=== PATIENT | female | born 1965 | race African-American/Black ===

== ENCOUNTER 2021-05-05 08:24 | Inpatient (IN) | payer OTHER, SELFPAY ==
[2021-05-05] VITALS (53 sets, daily range): BP systolic 145–223; BP diastolic 98–160; PULSE 56–92; RESP 11–31; TEMP 36.1–36.8; O2SAT 77–100; BMI 19.5
--- NOTE | 2021-05-05 08:38 | ED_ITS ---
HPI - Abdominal Pain General Chief Complaint: Abdominal Pain Stated Complaint: severe upper abdominal cramps, nausea Time Seen by Provider: 05/05/21 08:37 Source: patient and other (fiance) Mode of arrival: Wheelchair Limitations: no limitations History of Present Illness HPI narrative: This is a 56-year-old female comes in with complaint of epigastric pain, nausea and vomiting that started last night about 11:00 p.m. and has continued throughout the night. Patient denies fevers. Patient states she has had normal bowel movements with no diarrhea no black or bloody stools. She did notice she has been urinating a lot overnight but denies a sense of incomplete emptying, dysuria or urgency. Patient denies any radiation to her chest, she denies any radiation to back. She denies any chest pain she denies any shortness of breath. She denies any cough cold or congestion type symptoms. Patient states she has had similar symptoms in the past but they never figured out the exact cause although they told her it might be from eating carrots. She states she quit eating carrots but she does have care juice regularly. Patient denies any medical issues other than prior pleurodesis secondary to recurrent pn eumothorax. She states this feels very different. She states she has had an appendectomy. She denies any other surgeries. She denies any allergies to medications. She does not take any daily medications. No tobacco, alcohol or illicit. She is accompanied by her fiance. She does ask whether this could potentially be food poisoning. She is unsure if anyone else has had symptoms that she has been around. Review of Systems Review of Systems ROS Unobtainable: All systems reviewed & are unremarkable except as noted in HPI and below Patient History Medical History (Updated 05/05/21 @ 16:36 by Wojciech Norwood DO) Recurrent pneumothorax Small bowel obstruction Surgical History (Updated 05/05/21 @ 16:36 by Wojciech Norwood DO) History of appendectomy History of lung surgery Family History (Updated 05/05/21 @ 16:36 by Wojciech Norwood DO) Father Hypertension Mother Hypertension Social History household members: spouse Smoking Status: Never smoker alcohol intake: current (rare 0-1 drinks per week) substance use type: does not use Smoking Status: Never smoker Substance Use Type: does not use Exam Narrative Exam Narrative: GENERAL: Alert and oriented x three, female in moderate distress. HEENT: Head normocephalic, atraumatic, EOMI, pupils reactive, face symmetric, moist mucous membranes NECK: Supple, full range of motion CARDIOVASCULAR: Regular rate and rhythm without murmurs, rubs or gallops. RESPIRATORY: Breath sounds equal bilaterally, no wheezes rales or rhonchi. No tachypnea accessory muscle use. ABDOMEN: Soft, positive for left lower quadrant tenderness. Normoactive bowel sounds all 4 quadrants. No guarding or rebound, rigidity, no mass : No CVA tenderness EXTREMITIES: Normal range of motion, no clubbing or edema. Neurovascularly intact NEUROLOGICAL: Cranial nerves II through XII grossly intact. Moving all extremities SKIN: Warm, dry, no petechiae, no rashes or lesions. Initial Vital Signs Initial Vital Signs: Vital Signs Temperature 97.0 F L 05/05/21 08:33 Pulse Rate 92 H 05/05/21 08:33 Respiratory Rate 12 05/05/21 08:33 Blood Pressure 188/112 H 05/05/21 08:33 Pulse Oximetry 98 05/05/21 08:33 Course Orders Ordered: ED Orders 05/05/21 11:05 US pelvic complete Stat 05/05/21 11:27 COVID19 - ADMIT (REPAIRER ENGINE [employer]ODUCTION swab/PCR) Stat Hydrocodone Bitart/Acetaminophen (Hydrocodone/Acet 5/325 Tablet) 2 tab PO Q6HR PRN PRN Reason: Pain, Severe (7-10) Hydromorphone HCl (Hydromorphone 1 Mg Inj) 1 mg IV Q4H PRN PRN Reason: Pain, Severe (7-10), second li Last Admin: 05/05/21 17:40 Dose: 1 mg Documented by: ALEJANDRA POTASSIUM CHLORIDE IN WATER (Potassium Cl 10 Meq/100 Ml Lyn[place]ay) 10 meq in 100 mls @ 100 mls/hr IV Q1H [place] Stop: 05/05/21 20:59 Last Admin: 05/05/21 17:33 Dose: 100 mls/hr Documented by: ALEJANDRA Lactated Ringer's (Lactated Ringers) 1,000 mls @ 125 mls/hr IV CONT [place] Last Admin: 05/05/21 17:35 Dose: 125 mls/hr Documented by: ALEJANDRA Ketorolac Tromethamine (Ketorolac 30 Mg/Ml Vial) 15 mg IV Q6H [facility] Stop: 05/10/21 17:09 Last Admin: 05/05/21 17:42 Dose: 15 mg Documented by: ALEJANDRA Ondansetron HCl (Ondansetron 4 Mg/2 Ml Inj) 4 mg IV Q6HR PRN PRN Reason: Nausea And Vomiting Last Admin: 05/05/21 17:34 Dose: 4 mg Documented by: ALEJANDRA Pantoprazole Sodium (Pantoprazole 40 Mg Vial) 20 mg IV BID [place] Discontinued Medications Acetaminophen (Acetaminophen 325 Mg Tablet) 650 mg PO Q6HR PRN PRN Reason: Fever/Mild Pain (1-3) Hydrocodone Bitart/Acetaminophen (Hydrocodone/Acet 5/325 Tablet) 2 tab PO Q6HR PRN PRN Reason: Pain, Severe (7-10) Heparin Sodium (Porcine) (Heparin 5,000 Unit/Ml Vial) 5,000 unit SUBCUT BID [facility] Hydromorphone HCl (Hydromorphone 1 Mg Inj) 1 mg IV NOW ONE Stop: 05/05/21 14:05 Last Admin: 05/05/21 14:08 Dose: 1 mg Documented by: ESTELA Hydromorphone HCl (Hydromorphone 1 Mg Inj) 1 mg IV Q4HR PRN PRN Reason: pain Lactated Ringer's (Lactated Ringers) 1,000 mls @ 125 mls/hr IV CONT [facility] Ketorolac Tromethamine (Ketorolac 30 Mg/Ml Vial) 15 mg IV NOW ONE Stop: 05/05/21 08:48 Last Admin: 05/05/21 08:57 Dose: 15 mg Documented by: JERO Metoprolol Succinate (Metoprolol Er 25 Mg Tablet) 25 mg PO NOW ONE Stop: 05/05/21 12:31 Last Admin: 05/05/21 12:39 Dose: 25 mg Documented by: ESTELA Metoprolol Tartrate (Metoprolol Tartrate 5 Mg/5 Ml Inj) 5 mg IV Q5M [facility] Stop: 05/05/21 11:26 Last Admin: 05/05/21 12:38 Dose: Not Given Documented by: Admin: 05/05/21 11:38 Dose: 5 mg Documented by: Admin: 05/05/21 11:20 Dose: 5 mg Documented by: ESTELA Morphine Sulfate (Morphine 4 Mg/Ml Inj) 4 mg IV NOW ONE Stop: 05/05/21 09:59 Last Admin: 05/05/21 10:02 Dose: 4 mg Documented by: ESTELA Morphine Sulfate (Morphine 4 Mg/Ml Inj) 4 mg IV NOW ONE Stop: 05/05/21 11:14 Last Admin: 05/05/21 11:20 Dose: 4 mg Documented by: ESTELA Naloxone HCl (Naloxone 0.4 Mg/Ml Vial) 0.2 mg IV Q2MIN PRN PRN Reason: Opiate Reversal Ondansetron HCl (Ondansetron 4 Mg/2 Ml Inj) 4 mg IV NOW ONE Stop: 05/05/21 08:48 Last Admin: 05/05/21 08:56 Dose: 4 mg Documented by: JERO Ondansetron HCl (Ondansetron 4 Mg/2 Ml Inj) 4 mg IV Q6HR [place] Pantoprazole Sodium (Pantoprazole Dr 20 Mg Tablet) 20 mg PO 0600 [place] Sodium Biphosphate/Sodium Phosphate (Fleets Enema) 1 each RI NOW ONE Stop: 05/05/21 15:08 Sodium Biphosphate/Sodium Phosphate (Fleets Enema) 1 each RI NOW ONE Stop: 05/05/21 17:11 Last Admin: 05/05/21 18:05 Dose: 1 each Documented by: ALEJANDRA Reevaluation(s) Reevaluation #1: Patient updated on lab and CT findings. She is aware that have an additional labs pending as well as plan for pelvic ultrasound. Pain has improved after narcotic pain medication of 4/10 and a 2nd dose was given. She still quite hypertensive. She states that she has been told she has been hypertensive at the doctor's office but the number typically 130. Reevaluation #2: On recheck patient has been seen by Dr. Champion. Her pain is improved she still hypertensive. She is aware of the current plan for admission. Consultations Consultation #1: Dr. Mayen, patient appears have small-bowel obstruction whi ch is consistent with her current symptoms secondary to a large pelvic mass. She asked that we speak with OBGYN and recontact her with the recommendations of flu plan to keep the patient. Dr. Mayen was re-contacted after she spoke with Dr. Champion and saw patient here in the department accepts her for admission. We did discuss the patient has been hypertensive even after some IV metoprolol and multiple rounds of pain medication so she asked that we consult medicine. Consultation #2: Spoke with Dr. Champion is on for senior sales engineer. At this time she has for pelvic ultrasound to further delineate the mass. We have a CA 125 pending. After we have this information to recontact her for decision about whether to admit locally versus transfer to larger facility. Dr. Champion saw the patient here in the department after reviewing her door sound imaging. And CA 125 level. They do not feel that her bowel obstruction is likely the cause of her pelvic mass. And her CA 125 level is below 200 making cancer a much less likely cause and fibroids much more likely. She spoke with our general surgeon who is coming to evaluate the patient as well. Consultation #3: Dr. Norwood, will consult with the patient. Discussed she has been quite hypertensive. Pain control is likely a portion of this but even when her pain seems to be improved she is very hypertensive and respond somewhat to metoprolol and was started on a p.o. metoprolol with some improvement down from 2 / 20s to 172/104 but still quite hypertensive. Vital Signs Vital signs: Vital Signs - 8 hr 05/05/21 11:10 05/05/21 11:15 05/05/21 11:20 Pulse Rate 89 81 87 Respiratory Rate 19 19 22 Blood Pressure Pulse Oximetry 99 99 99 05/05/21 11:25 05/05/21 11:30 05/05/21 11:33 Pulse Rate 65 64 63 Respiratory Rate 24 31 H 23 Blood Pressure 223/160 H Pulse Oximetry 100 98 97 05/05/21 11:35 05/05/21 11:42 05/05/21 11:44 Pulse Rate 62 60 Respiratory Rate 25 H Blood Pressure 196/116 H 191/109 H Pulse Oximetry 77 L 100 05/05/21 11:45 05/05/21 11:50 05/05/21 11:51 Pulse Rate 56 L 63 62 Respiratory Rate 24 23 21 Blood Pressure 201/115 H 188/98 H Pulse Oximetry 100 99 99 05/05/21 11:55 05/05/21 12:00 05/05/21 12:05 Pulse Rate 63 74 59 L Respiratory Rate 19 19 Blood Pressure 188/116 H 190/108 H Pulse Oximetry 99 92 98 05/05/21 12:10 05/05/21 12:15 05/05/21 12:20 Pulse Rate 59 L 60 60 Respiratory Rate 19 18 17 Blood Pressure 181/109 H 180/112 H 188/111 H Pulse Oximetry 99 100 99 05/05/21 12:25 05/05/21 12:30 05/05/21 12:35 Pulse Rate 64 58 L 60 Respiratory Rate 18 20 19 Blood Pressure 178/112 H 172/106 H 189/116 H Pulse Oximetry 100 100 99 05/05/21 12:39 05/05/21 12:40 05/05/21 12:45 Pulse Rate 63 58 L 61 Respiratory Rate 24 20 Blood Pressure 189/116 H Pulse Oximetry 100 100 05/05/21 12:50 05/05/21 12:55 05/05/21 13:00 Pulse Rate 61 61 62 Respiratory Rate 26 H 22 22 Blood Pressure 198/107 H Pulse Oximetry 100 100 100 05/05/21 13:05 05/05/21 13:10 05/05/21 13:15 Pulse Rate 63 64 65 Respiratory Rate 18 19 20 Blood Pressure Pulse Oximetry 100 100 100 05/05/21 13:30 05/05/21 14:00 05/05/21 14:01 Pulse Rate 65 86 84 Respiratory Rate 21 30 H 28 H Blood Pressure 222/115 H 197/119 H Pulse Oximetry 99 83 L 98 05/05/21 14:30 05/05/21 14:31 05/05/21 15:00 Pulse Rate 81 72 74 Respiratory Rate 22 18 16 Blood Pressure 172/104 H 182/115 H Pulse Oximetry 94 95 99 MDM - Abdominal Pain Lab Data Result diagrams: 05/05/21 08:43 05/05/21 08:43 Labs: Lab Results 05/05/21 05/05/21 05/05/21 Range/Units 08:43 08:43 08:43 WBC 9.3 (4.5-11.0) X10^3/uL RBC 5.86 H (4.0-5.2) X10^6/uL Hgb 17.0 H (12.0-16.0) g/dL Hct 50.9 H (36-46) % MCV 87.0 (80-100) fL MCH 29.1 (26-34) PG MCHC 33.4 (30-36) % RDW 13.2 (11.6-14.8) % Plt Count 292 (150-400) X10^3/uL Neut % (Auto) 91.2 H (50-75) % Lymph % (Auto) 5.4 L (25-40) % [place] % (Auto) 3.0 (3-14) % Eos % (Auto) 0.0 L (2-4) % Baso % (Auto) 0.4 (0-2) % Neut # (Auto) 8500 H (4531-5208) /uL Lymph # (Auto) 500 L (5406-0425) /uL [place] # (Auto) 300 (0-900) /uL Eos # (Auto) 0 (0-450) /uL Baso # (Auto) 0 (0-100) /uL Sodium 140 (137-145) mmol/L Potassium 3.3 L (3.4-5.1) mmol/L Chloride 104 (98-107) mmol/L Carbon Dioxide 21 L (22-32) mmol/L BUN 17 (7-17) mg/dL Creatinine 0.78 (0.52-1.04) mg/dL Estimated GFR > 60.0 (>60) mL/min BUN/Creatinine Ratio 21.8 (6-22) Glucose 184 H (70-100) mg/dL Calcium 10.1 (8.4-10.2) mg/dL Total Bilirubin 0.6 (0.2-1.3) mg/dL AST 51 H (14-36) IU/L ALT 29 (<35) IU/L Alkaline Phosphatase 78 (38-126) U/L Total Creatine Kinase 415 H (30-135) U/L CK-MB (CK-2) 2.28 (<2.37) ng/mL CK-MB (CK-2) Rel Index 0.5 L (1.5-5.0) % Troponin I < 0.012 (0.01-0.034) ng/mL Total Protein 8.7 H (6.3-8.2) g/dL Albumin 4.9 (3.5-5.0) g/dL Globulin 3.8 (1.7-4.1) g/dL Albumin/Globulin Ratio 1.3 (1.0-2.8) Lipase 32 (23-300) U/L CA 125 Antigen (0-35) U/mL Urine RBC (0-5/HPF) Urine WBC (0-5/HPF) Ur Squamous Epith Cells (0-5/HPF) Urine Bacteria (None) Ur Culture Indicated? SARS-CoV-2 (PCR) (Negative) 05/05/21 05/05/21 05/05/21 Range/Units 08:43 10:05 11:27 WBC (4.5-11.0) X10^3/uL RBC (4.0-5.2) X10^6/uL Hgb (12.0-16.0) g/dL Hct (36-46) % MCV (80-100) fL MCH (26-34) PG MCHC (30-36) % RDW (11.6-14.8) % Plt Count (150-400) X10^3/uL Neut % (Auto) (50-75) % Lymph % (Auto) (25-40) % [place] % (Auto) (3-14) % Eos % (Auto) (2-4) % Baso % (Auto) (0-2) % Neut # (Auto) (3489-8495) /uL Lymph # (Auto) (5986-0389) /uL [facility] # (Auto) (0-900) /uL Eos # (Auto) (0-450) /uL Baso # (Auto) (0-100) /uL Sodium (137-145) mmol/L Potassium (3.4-5.1) mmol/L Chloride (98-107) mmol/L Carbon Dioxide (22-32) mmol/L BUN (7-17) mg/dL Creatinine (0.52-1.04) mg/dL Estimated GFR (>60) mL/min BUN/Creatinine Ratio (6-22) Glucose (70-100) mg/dL Calcium (8.4-10.2) mg/dL Total Bilirubin (0.2-1.3) mg/dL AST (14-36) IU/L ALT (<35) IU/L Alkaline Phosphatase (38-126) U/L Total Creatine Kinase (30-135) U/L CK-MB (CK-2) (<2.37) ng/mL CK-MB (CK-2) Rel Index (1.5-5.0) % Troponin I (0.01-0.034) ng/mL Total Protein (6.3-8.2) g/dL Albumin (3.5-5.0) g/dL Globulin (1.7-4.1) g/dL Albumin/Globulin Ratio (1.0-2.8) Lipase (23-300) U/L CA 125 Antigen 96.8 H (0-35) U/mL Urine RBC 10-30/hpf H (0-5/HPF) Urine WBC None seen (0-5/HPF) Ur Squamous Epith Cells None seen (0-5/HPF) Urine Bacteria None seen (None) Ur Culture Indicated? Cult not indicated SARS-CoV-2 (PCR) Negative (Negative) Point of care testing: Point of Care Testing Test Results Negative Urine Dip Bedside Urine Glucose 100 mg/dl Bedside Urine Bilirubin - Negative Bedside Urine Ketone - Negative Urine Specific [place] 1.015 Bedside Urine Occult Blood +++ Bedside Urine pH 6.5 Bedside Urine Protein + 30 Bedside Urine Urobilinogen - Negative Bedside Urine Nitrite - Negative Bedside Urine Leukocytes - Negative Esterase Imaging Data Chest x-ray: Radiologist's Impression: Deysi Rankin??56??F??1965 ? Allergy/Adv: No Known Drug Allergies Close Chest X-Ray (Signed) [facility] - 05/05/21 Launch?[place] [address] XRay Report Signed Patient: Deysi Rankin MR#: [id number] : 1965 Acct:[id number] Age/Sex: 56 / F Date of Service: 05/05/21 Loc: ED Accession Number: [id number] ?? Procedure: XR chest 1V Ordering Provider: Riddhi Saenz D.O. PROCEDURE:? XR CHEST 1V ? INDICATIONS:? abd pain, vomiting. ? TECHNIQUE:? One view of the chest was acquired.? ? COMPARISON:? None. ? FINDINGS:? ? Surgical changes and devices:? None.? ? Lungs and pleura:? Density at the right hemidiaphragm.? Suture material at the right upper lobe.? No pleural effusions or pneumothorax.? ? Mediastinum:? Mediastinal contours are within normal limits.? Heart size is normal.? ? Bones and chest wall:? No suspicious bony lesions.? Overlying soft tissues appear unremarkable.? ? IMPRESSION:? Density at the right hemidiaphragm. This could be due to elevation of the hemidiaphragm, diaphragmatic hernia, pneumonia or atelectasis. ? Suture material at the right upper lobe.? ? Dictated by: Mukund Fowler M.D. on 05/05/2021 at 8:11 ? ? Approved by: Mukund Fowler M.D. on 05/05/2021 at 8:12?? US - [employer] CERT[employer]IED [employer] PROFESSIONAL: Radiologist's Impression: Launch?Image [address] [address] Ultrasound Report Signed Patient: Deysi Rankin MR#: [id number] : 1965 Acct:[id number] Age/Sex: 56 / F Date of Service: 05/05/21 Loc: ED Accession Number: [id number] ?? Procedure: US pelvic complete Ordering Provider: Riddhi Saenz D.O. PROCEDURE:? US PELVIC COMPLETE ? INDICATIONS:? PELVIC MASS ? TECHNIQUE:? Real-time scanning was performed of the pelvic organs, with image documentation.? Additional endovaginal scanning was necessary due to incomplete visualization of the adnexal and endometrial structures by transabdominal scanning.? ? COMPARISON:? [facility], CT, CT ABDOMEN PELVIS W CON, 05/05/2021, 10:11. ? FINDINGS:? ?? Uterus:? Uterus is prominent in size at 11.7 x 7.9 x 10.3 cm.? The endometrial stripe is not seen. ? Hypoechoic uterine lesions are seen, which are attributed to fibroids. They measure as follows: ? Right anterior uterus, intramural/submucosal, 5.5 x 5.8 x 4.5 cm Left uterus, intramural/submucosal, 7.2 x 6.4 x 5.5 cm ? Ovaries:? Neither ovary can be seen. ? Other: ? There is moderate free fluid seen within the pelvis. ? IMPRESSION:? A prominent, fibroid uterus can be seen. ? The endometrial stripe is not seen and not evaluated on this study. ? Moderate free fluid can be seen. ? Neither ovary is seen on this study. ? ? Dictated by: Alonzo Rosales M.D. on 05/05/2021 at 11:01 ? ? Approved by: Alonzo Rosales M.D. on 05/05/2021 at 11:06?? CT scan - abdomen/pelvis: Radiologist's Impression: Deysi Rankin??56??F??1965 ? Allergy/Adv: Not Recorded Close Pelvis Ultrasound (Signed) Alonzo Rosales - 05/05/21 Abdomen/Pelvis CT (Signed) Myles Brower - 05/05/21 Chest X-Ray (Signed) Jonathan Fowlern - 05/05/21 Launch?[place] [address] CT Scan Report Signed Patient: Deysi Rankin MR#: [id number] : 1965 Acct:[id number] Age/Sex: 56 / F Date of Service: 05/05/21 Loc: ED Accession Number: [id number] ?? Procedure: CT abdomen pelvis w con Ordering Provider: Riddhi Saenz D.O. PROCEDURE:? CT ABDOMEN PELVIS W CON ? INDICATIONS:? abdominal pain, epigastric, now LLQ, hx pleuradesis ? TECHNIQUE:? After the administration of intravenous contrast, axial sections acquired from the lung bases to the pubic symphysis.? Coronal and sagittal reformats were performed.? For radiation dose reduction, the following was used:? automated exposure control, adjustment of mA and/or kV according to patient size.? ? COMPARISON:? None. ? FINDINGS: ABDOMEN:? Lung bases:? No acute findings. Heart:? No pericardial effusion. Normal in size.? ? Liver:? Hepatic steatosis. Subcentimeter hepatic foci are statistically cysts or hemangiomas, although technically too small to characterize accurately and therefore nonspecific. Gallbladder:? Grossly unremarkable. Bile ducts: Normal. Pancreas: Normal.? Spleen: Normal.? Adrenals: Normal. Kidneys and Ureters:? Normal. Stomach and duodenum: Normal. Bowel:? There is dilation of multiple diffuse distal small bowel loops, some of which demonstrate fecalization.? The colon is relatively decompressed and contains moderate stool.? A specific transition point is not well seen, suboptimal evaluation secondary to paucity of intra-abdominal fat and scattered ascites. Other:? No definite intraperitoneal free air is seen.? There is diffuse moderate ascites Abdominal nodes:? No definite lymphadenopathy however limited evaluation given ascites Aorta and IVC: Normal in size.? ? Ventral wall: Normal. ? PELVIS:? ? Bladder:? Grossly unremarkable.? Large heterogeneous multinodular mass seen within the central pelvis measuring overall 7.3 x 11.3 cm in axial image 71/2.? Numerous poorly defined uterine fibroids although recommend clinical and surgical history correlation. ? Both ovaries not well seen. Inguinal region: No hernia.? Pelvic nodes: Normal.? ? Bones:? No suspicious bony lesions.? No vertebral body compression fractures. ? ? IMPRESSION: ? Dilated small bowel, probably mostly ileal loops in keeping with bowel obstruction.? Superimposed infectious or inflammatory enteritis cannot be excluded. ? Diffuse moderate ascites. ? Large heterogeneous mass within the central pelvis, technically nonspecific.? This could reflect numerous poorly defined uterine fibroids although cannot exclude other possibilities.? The ovaries are not well visualized and ovarian neoplasm is technically in the differential.? Please correlate with clinical and operative history. ? Dictated by: Myles Brower M.D. on 05/05/2021 at 10:31 ? ? Approved by: Myles Brower M.D. on 05/05/2021 at 10:40?? ECG Data Attestation: I personally reviewed and interpreted this ECG as follows: Prior ECG tracings: not available for review Interpretation: Normal sinus rhythm. Rate of 61 RI 184 QRS 82 and QTC 459. Patient has nonspecific change. She does not have any priors for comparison. MDM Narrative Medical decision making narrative: This is a 56-year-old female who comes in with fairly short onset of abdominal pain and vomiting. Patient has had episodes in the past but was told they never found a cause. Patient's quite hypertensive here in the department. Chest x-ray was negative she does have a history of pleurodesis after multiple pneumothorax. Patient's was given pain medication which not seem to improve her hypertension was given IV metoprolol as well. CT abdomen pelvis was obtained which shows a large mass as well as signs of small-bowel obstruction but with no clear transition point. General surgery and OBGYN or both consulted. CA 125 was occluded and pelvic ultrasound was obtained at GYNs request. This was all reviewed with Dr. Champion from waterproof coating machine tender who feels that these are more likely fibroids not cancerous in nature. She states that it also appears that this is less likely a cause of her small-bowel obstruction or ileus and General surgery has taken over. They are going to admit the patient at this time. They do aspirin medicine consult she has been quite hypertensive in the department with some improvement. Discharge Plan Departure Patient Disposition: Admitted As Inpatient Clinical Impression: Pelvic mass, Partial small bowel obstruction, Hypertension Admit Date/Time: 05/05/21 15:01 Admit Provider: Angy Mayen
--- NOTE | 2021-05-05 08:47 | DI.RAD.S_ITS ---
PROCEDURE: XR CHEST 1V INDICATIONS: abd pain, vomiting. TECHNIQUE: One view of the chest was acquired. COMPARISON: None. FINDINGS: Surgical changes and devices: None. Lungs and pleura: Density at the right hemidiaphragm. Suture material at the right upper lobe. No pleural effusions or pneumothorax. Mediastinum: Mediastinal contours are within normal limits. Heart size is normal. Bones and chest wall: No suspicious bony lesions. Overlying soft tissues appear unremarkable. IMPRESSION: Density at the right hemidiaphragm. This could be due to elevation of the hemidiaphragm, diaphragmatic hernia, pneumonia or atelectasis. Suture material at the right upper lobe. Dictated by: Mukund Fowler M.D. on 05/05/2021 at 8:11 Approved by: Mukund Fowler M.D. on 05/05/2021 at 8:12
[2021-05-05 08:51] LABS: Add Manual Diff / Slide Review NO; Basophils Absolute Auto 0 /uL (0-100); Basophils Percent Auto 0.4 % (0-2); Eosinophils Absolute Auto 0 /uL (0-450); Hematocrit 50.9 % (36-46); Lymphocytes Absolute Auto 500 /uL (1100-4500); Lymphocytes Percent Auto 5.4 % (25-40); Mean Corpuscular HGB Conc 33.4 % (30-36); Mean Corpuscular Hemoglobin 29.1 PG (26-34); Monocytes Absolute Auto 300 /uL (0-900); Neutrophils Absolute Auto 8500 /uL (1500-7000); Neutrophils Percent Auto 91.2 % (50-75); Platelet Count 292 X10^3/uL (150-400); Red Blood Cell Count 5.86 X10^6/uL (4.0-5.2); Red Cell Distribution Width 13.2 % (11.6-14.8); White Blood Cell Count 9.3 X10^3/uL (4.5-11.0)
[2021-05-05] MEDS: ONDANSETRON 4 MG/2 ML INJ IV ×2 (08:56→17:34)
[2021-05-05] MEDS: KETOROLAC 30 MG/ML VIAL 15 MG IV ×3 (08:57→22:54)
[2021-05-05 09:13] LABS: Creatine Kinase 415 U/L (30-135)
[2021-05-05 09:26] LABS: Troponin I < 0.012 ng/mL (0.01-0.034)
[2021-05-05 09:29] LABS: CKMB % Relative Index 0.5 % (1.5-5.0); Creatine Kinase MB 2.28 ng/mL (<2.37)
--- NOTE | 2021-05-05 09:35 | DI.CT.S_ITS ---
PROCEDURE: CT ABDOMEN PELVIS W CON INDICATIONS: abdominal pain, epigastric, now LLQ, hx pleuradesis TECHNIQUE: After the administration of intravenous contrast, axial sections acquired from the lung bases to the pubic symphysis. Coronal and sagittal reformats were performed. For radiation dose reduction, the following was used: automated exposure control, adjustment of mA and/or kV according to patient size. COMPARISON: None. FINDINGS: ABDOMEN: Lung bases: No acute findings. Heart: No pericardial effusion. Normal in size. Liver: Hepatic steatosis. Subcentimeter hepatic foci are statistically cysts or hemangiomas, although technically too small to characterize accurately and therefore nonspecific. Gallbladder: Grossly unremarkable. Bile ducts: Normal. Pancreas: Normal. Spleen: Normal. Adrenals: Normal. Kidneys and Ureters: Normal. Stomach and duodenum: Normal. Bowel: There is dilation of multiple diffuse distal small bowel loops, some of which demonstrate fecalization. The colon is relatively decompressed and contains moderate stool. A specific transition point is not well seen, suboptimal evaluation secondary to paucity of intra-abdominal fat and scattered ascites. Other: No definite intraperitoneal free air is seen. There is diffuse moderate ascites Abdominal nodes: No definite lymphadenopathy however limited evaluation given ascites Aorta and IVC: Normal in size. Ventral wall: Normal. PELVIS: Bladder: Grossly unremarkable. Large heterogeneous multinodular mass seen within the central pelvis measuring overall 7.3 x 11.3 cm in axial image 71/2. Numerous poorly defined uterine fibroids although recommend clinical and surgical history correlation. Both ovaries not well seen. Inguinal region: No hernia. Pelvic nodes: Normal. Bones: No suspicious bony lesions. No vertebral body compression fractures. IMPRESSION: Dilated small bowel, probably mostly ileal loops in keeping with bowel obstruction. Superimposed infectious or inflammatory enteritis cannot be excluded. Diffuse moderate ascites. Large heterogeneous mass within the central pelvis, technically nonspecific. This could reflect numerous poorly defined uterine fibroids although cannot exclude other possibilities. The ovaries are not well visualized and ovarian neoplasm is technically in the differential. Please correlate with clinical and operative history. Dictated by: Myles Brower M.D. on 05/05/2021 at 10:31 Approved by: Myles Brower M.D. on 05/05/2021 at 10:40
[2021-05-05] MEDS: MORPHINE 4 MG/ML INJ IV ×2 (10:02→11:20)
[2021-05-05 10:07] LABS: Alanine Aminotransferase 29 IU/L (<35); Albumin 4.9 g/dL (3.5-5.0); Albumin Globulin Ratio 1.3 (1.0-2.8); Alkaline Phosphatase 78 U/L (38-126); Aspartate Aminotransferase 51 IU/L (14-36); BUN Creatinine Ratio 21.8 (6-22); Bilirubin Total 0.6 mg/dL (0.2-1.3); Blood Urea Nitrogen 17 mg/dL (7-17); Calcium 10.1 mg/dL (8.4-10.2); Carbon Dioxide 21 mmol/L (22-32); Chloride 104 mmol/L (98-107); Estimated Glomerular Filt Rate > 60.0 mL/min (>60); Globulin 3.8 g/dL (1.7-4.1); Glucose 184 mg/dL (70-100); HEMOLYSIS 34 (0-50); Lipase 32 U/L (23-300); Potassium 3.3 mmol/L (3.4-5.1); Sodium 140 mmol/L (137-145); Total Protein 8.7 g/dL (6.3-8.2)
[2021-05-05 10:13] LABS: Bacteria Urine None Seen; Culture Indicated Urine Cult Not Indicated; RBC Urine 10-30/HPF (0-5/HPF); Squamous Epithelial Cell Urine None Seen (0-5/HPF); WBC Urine None Seen (0-5/HPF)
--- NOTE | 2021-05-05 11:05 | DI.US.S_ITS ---
PROCEDURE: US PELVIC COMPLETE INDICATIONS: PELVIC MASS TECHNIQUE: Real-time scanning was performed of the pelvic organs, with image documentation. Additional endovaginal scanning was necessary due to incomplete visualization of the adnexal and endometrial structures by transabdominal scanning. COMPARISON: [facility], CT, CT ABDOMEN PELVIS W CON, 05/05/2021, 10:11. FINDINGS: Uterus: Uterus is prominent in size at 11.7 x 7.9 x 10.3 cm. The endometrial stripe is not seen. Hypoechoic uterine lesions are seen, which are attributed to fibroids. They measure as follows: Right anterior uterus, intramural/submucosal, 5.5 x 5.8 x 4.5 cm Left uterus, intramural/submucosal, 7.2 x 6.4 x 5.5 cm Ovaries: Neither ovary can be seen. Other: There is moderate free fluid seen within the pelvis. IMPRESSION: A prominent, fibroid uterus can be seen. The endometrial stripe is not seen and not evaluated on this study. Moderate free fluid can be seen. Neither ovary is seen on this study. Dictated by: Alonzo Rosales M.D. on 05/05/2021 at 11:01 Approved by: Alonzo Rosales M.D. on 05/05/2021 at 11:06
[2021-05-05] MEDS: METOPROLOL TARTRATE 5 MG/5 ML INJ IV ×2 (11:20→11:38)
[2021-05-05 11:42] LABS: Cancer Antigen 125 96.8 U/mL (0-35)
[2021-05-05 12:17] LABS: COVID19 - ADMIT (NP swab/PCR) Negative (Negative)
[2021-05-05] MEDS: METOPROLOL ER 25 MG TABLET PO (12:39)
[2021-05-05] MEDS: HYDROMORPHONE 1 MG INJ IV ×2 (14:08→17:40)
--- NOTE | 2021-05-05 15:09 | PM.HP.1 ---
History of Present Illness History of Present Illness Date Patient Seen: 05/05/21 Time Patient Seen: 15:09 Date of Onset of Symptoms: 05/04/21 Chief complaint: severe upper abdominal cramps, nausea Narrative: Sudden onset nausea, vomiting and abdominal pain. 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 Last BM was last night. Pain is generalized and crampy. No report of fever or cough. CT scan show large fibroid uterus, moderate amount of free fluid, distal dilated small bowel of moderate size and constipation. Patient History Comment: PMH for hypertension PSH for multiple surgeries for uterine fibroids. Family & Social History Family history unavailable: No (patient states fibroid tumors run in the family) Social History: here with fiancee and is getting in 3 weeks Safety & Behavioral: Feels Safe in Current Yes Environment Been Physically Hurt or No Threatened By a Person Tobacco & Substance use: Smoking Status Never smoker Substance Use Type does not use Review of Systems Review of Systems ROS: Yes All systems reviewed with the patient and are negative except as otherwise documented Exam Vital Signs (past 8 hours): - 05/05/21 08:33 05/05/21 09:29 05/05/21 09:30 Temperature 97.0 F L Pulse Rate 92 H 74 69 Respiratory Rate 12 23 11 L Blood Pressure 188/112 H Pulse Oximetry 98 100 100 05/05/21 09:54 05/05/21 10:00 05/05/21 10:01 Temperature Pulse Rate 68 72 73 Respiratory Rate 17 27 H 22 Blood Pressure 202/104 H 210/111 H Pulse Oximetry 80 L 99 98 05/05/21 10:24 05/05/21 10:30 05/05/21 11:00 Temperature Pulse Rate 71 82 81 Respiratory Rate 19 22 22 Blood Pressure 216/110 H 204/120 H 215/123 H Pulse Oximetry 79 L 98 98 05/05/21 11:05 05/05/21 11:10 05/05/21 11:15 Temperature Pulse Rate 74 89 81 Respiratory Rate 23 19 19 Blood Pressure Pulse Oximetry 98 99 99 05/05/21 11:20 05/05/21 11:25 05/05/21 11:30 Temperature Pulse Rate 87 65 64 Respiratory Rate 22 24 31 H Blood Pressure 223/160 H Pulse Oximetry 99 100 98 05/05/21 11:33 05/05/21 11:35 05/05/21 11:42 Temperature Pulse Rate 63 62 Respiratory Rate 23 Blood Pressure 196/116 H Pulse Oximetry 97 77 L 05/05/21 11:44 05/05/21 11:45 05/05/21 11:50 Temperature Pulse Rate 60 56 L 63 Respiratory Rate 25 H 24 23 Blood Pressure 191/109 H 201/115 H Pulse Oximetry 100 100 99 05/05/21 11:51 05/05/21 11:55 05/05/21 12:00 Temperature Pulse Rate 62 63 74 Respiratory Rate 21 19 Blood Pressure 188/98 H 188/116 H Pulse Oximetry 99 99 92 05/05/21 12:05 05/05/21 12:10 05/05/21 12:15 Temperature Pulse Rate 59 L 59 L 60 Respiratory Rate 19 19 18 Blood Pressure 190/108 H 181/109 H 180/112 H Pulse Oximetry 98 99 100 05/05/21 12:20 05/05/21 12:25 05/05/21 12:30 Temperature Pulse Rate 60 64 58 L Respiratory Rate 17 18 20 Blood Pressure 188/111 H 178/112 H 172/106 H Pulse Oximetry 99 100 100 05/05/21 12:35 05/05/21 12:39 05/05/21 12:40 Temperature Pulse Rate 60 63 58 L Respiratory Rate 19 24 Blood Pressure 189/116 H 189/116 H Pulse Oximetry 99 100 05/05/21 12:45 05/05/21 12:50 05/05/21 12:55 Temperature Pulse Rate 61 61 61 Respiratory Rate 20 26 H 22 Blood Pressure Pulse Oximetry 100 100 100 05/05/21 13:00 05/05/21 13:05 05/05/21 13:10 Temperature Pulse Rate 62 63 64 Respiratory Rate 22 18 19 Blood Pressure 198/107 H Pulse Oximetry 100 100 100 05/05/21 13:15 05/05/21 13:30 05/05/21 14:00 Temperature Pulse Rate 65 65 86 Respiratory Rate 20 21 30 H Blood Pressure 222/115 H Pulse Oximetry 100 99 83 L 05/05/21 14:01 05/05/21 14:30 05/05/21 14:31 Temperature Pulse Rate 84 81 72 Respiratory Rate 28 H 22 18 Blood Pressure 197/119 H 172/104 H Pulse Oximetry 98 94 95 Oxygen Delivery Method Room Air Const General: cooperative and comfortable Nutritional Appearance: underweight Orientation: alert and oriented x3 HENMT Head: normal to inspection Ears: hearing grossly normal bilaterally Nose: external nose normal Face and sinus: normal facial exam Eyes General: appearance normal, both eyes and all related structures Visual Monteiro: normal visual monteiro by confrontation Sclera: sclerae normal Neck Neck: trachea midline Chest Chest: normal inspection of the chest Resp Effort & Inspection: normal respiratory effort and able to speak in complete sentences Cardio Rate: regular rate Rhythm: regular rhythm Other: hypertensive GI Inspection: normal to inspection Palpation: soft, mass (pelvic mass easily palpated. NO acute abdomen) and tender Skin General: no rashes or lesions noted and turgor normal Neuro General: patient alert and patient oriented x3 Cognition: normal cognition Speech: speech normal Extrem General: normal to inspection and full ROM Psych Appearance: grossly normal Affect: indifferent Attitude: cooperative Judgment: fair Objective Labs Result Diagrams: 05/05/21 08:43 05/05/21 08:43 Labs: Laboratory Results - last 24 hr 05/05/21 05/05/21 05/05/21 08:43 08:43 08:43 WBC 9.3 RBC 5.86 H Hgb 17.0 H Hct 50.9 H MCV 87.0 MCH 29.1 MCHC 33.4 RDW 13.2 Plt Count 292 Neut % (Auto) 91.2 H Lymph % (Auto) 5.4 L [place] % (Auto) 3.0 Eos % (Auto) 0.0 L Baso % (Auto) 0.4 Neut # (Auto) 8500 H Lymph # (Auto) 500 L [place] # (Auto) 300 Eos # (Auto) 0 Baso # (Auto) 0 Sodium 140 Potassium 3.3 L Chloride 104 Carbon Dioxide 21 L BUN 17 Creatinine 0.78 Estimated GFR > 60.0 BUN/Creatinine Ratio 21.8 Glucose 184 H Calcium 10.1 Total Bilirubin 0.6 AST 51 H ALT 29 Alkaline Phosphatase 78 Total Creatine Kinase 415 H CK-MB (CK-2) 2.28 CK-MB (CK-2) Rel Index 0.5 L Troponin I < 0.012 Total Protein 8.7 H Albumin 4.9 Globulin 3.8 Albumin/Globulin Ratio 1.3 Lipase 32 CA 125 Antigen Urine RBC Urine WBC Ur Squamous Epith Cells Urine Bacteria Ur Culture Indicated? SARS-CoV-2 (PCR) 05/05/21 05/05/21 05/05/21 08:43 10:05 11:27 WBC RBC Hgb Hct MCV MCH MCHC RDW Plt Count Neut % (Auto) Lymph % (Auto) [place] % (Auto) Eos % (Auto) Baso % (Auto) Neut # (Auto) Lymph # (Auto) [place] # (Auto) Eos # (Auto) Baso # (Auto) Sodium Potassium Chloride Carbon Dioxide BUN Creatinine Estimated GFR BUN/Creatinine Ratio Glucose Calcium Total Bilirubin AST ALT Alkaline Phosphatase Total Creatine Kinase CK-MB (CK-2) CK-MB (CK-2) Rel Index Troponin I Total Protein Albumin Globulin Albumin/Globulin Ratio Lipase CA 125 Antigen 96.8 H Urine RBC 10-30/hpf H Urine WBC None seen Ur Squamous Epith Cells None seen Urine Bacteria None seen Ur Culture Indicated? Cult not indicated SARS-CoV-2 (PCR) Negative Assessment & Plan Assessment & Plan narrative: Likely a combination of events: viral gastroenteritis in setting of chronic constipation. adhesive disease. Large uterine fibroid impinge on the distal bowel both small and large. hypertension Plan: admit for IV hydration, observation, enema. 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 Medical consult for hypertension. COVID-19 COVID-19 status: Negative Time Spent With Patient Time with patient: 30 to 49 minutes with 50% spent counseling/coordinating care Critical Care time: I spent a total of 40 minutes of critical care time on this patient's care today; this time is exclusive of procedural time.
--- NOTE | 2021-05-05 16:34 | PM.CN ---
History of Present Illness Consult details Date Patient Seen: 05/05/21 Time Patient Seen: 16:34 Chief complaint: severe upper abdominal cramps, nausea Narrative: This is a 56-year-old female with a past history of recurrent pneumothorax, uterine fibroids with prior anemia secondary to blood loss, prior small-bowel obstruction who presented with severe epigastric cramping, nausea, and vomiting and inability to tolerate oral intake. Her emesis was nonbloody and nonbilious. Pain was crampy like, severe, and epigastric. The pain was intermittent, but also with a more diffuse dull pain now. CT scan done in the ER showed partial SBO, heterogeneous mass patient's blood pressures were markedly elevated. She was given 25 mg of oral metoprolol. Medicine was asked to consult for HTN. The patient denies any recent chest pain, shortness of breath, orthopnea, or lower extremity edema. Review of Systems Review of Systems Narrative: All other systems reviewed with the patient and are negative unless otherwise stated. Exam Vital Signs (past 8 hours): - 05/05/21 09:29 05/05/21 09:30 05/05/21 09:54 Pulse Rate 74 69 68 Respiratory Rate 23 11 L 17 Blood Pressure 202/104 H Pulse Oximetry 100 100 80 L 05/05/21 10:00 05/05/21 10:01 05/05/21 10:24 Pulse Rate 72 73 71 Respiratory Rate 27 H 22 19 Blood Pressure 210/111 H 216/110 H Pulse Oximetry 99 98 79 L 05/05/21 10:30 05/05/21 11:00 05/05/21 11:05 Pulse Rate 82 81 74 Respiratory Rate 22 22 23 Blood Pressure 204/120 H 215/123 H Pulse Oximetry 98 98 98 05/05/21 11:10 05/05/21 11:15 05/05/21 11:20 Pulse Rate 89 81 87 Respiratory Rate 19 19 22 Blood Pressure Pulse Oximetry 99 99 99 05/05/21 11:25 05/05/21 11:30 05/05/21 11:33 Pulse Rate 65 64 63 Respiratory Rate 24 31 H 23 Blood Pressure 223/160 H Pulse Oximetry 100 98 97 05/05/21 11:35 05/05/21 11:42 05/05/21 11:44 Pulse Rate 62 60 Respiratory Rate 25 H Blood Pressure 196/116 H 191/109 H Pulse Oximetry 77 L 100 05/05/21 11:45 05/05/21 11:50 05/05/21 11:51 Pulse Rate 56 L 63 62 Respiratory Rate 24 23 21 Blood Pressure 201/115 H 188/98 H Pulse Oximetry 100 99 99 05/05/21 11:55 05/05/21 12:00 05/05/21 12:05 Pulse Rate 63 74 59 L Respiratory Rate 19 19 Blood Pressure 188/116 H 190/108 H Pulse Oximetry 99 92 98 05/05/21 12:10 05/05/21 12:15 05/05/21 12:20 Pulse Rate 59 L 60 60 Respiratory Rate 19 18 17 Blood Pressure 181/109 H 180/112 H 188/111 H Pulse Oximetry 99 100 99 05/05/21 12:25 05/05/21 12:30 05/05/21 12:35 Pulse Rate 64 58 L 60 Respiratory Rate 18 20 19 Blood Pressure 178/112 H 172/106 H 189/116 H Pulse Oximetry 100 100 99 05/05/21 12:39 05/05/21 12:40 05/05/21 12:45 Pulse Rate 63 58 L 61 Respiratory Rate 24 20 Blood Pressure 189/116 H Pulse Oximetry 100 100 05/05/21 12:50 05/05/21 12:55 05/05/21 13:00 Pulse Rate 61 61 62 Respiratory Rate 26 H 22 22 Blood Pressure 198/107 H Pulse Oximetry 100 100 100 05/05/21 13:05 05/05/21 13:10 05/05/21 13:15 Pulse Rate 63 64 65 Respiratory Rate 18 19 20 Blood Pressure Pulse Oximetry 100 100 100 05/05/21 13:30 05/05/21 14:00 05/05/21 14:01 Pulse Rate 65 86 84 Respiratory Rate 21 30 H 28 H Blood Pressure 222/115 H 197/119 H Pulse Oximetry 99 83 L 98 05/05/21 14:30 05/05/21 14:31 05/05/21 15:00 Pulse Rate 81 72 74 Respiratory Rate 22 18 16 Blood Pressure 172/104 H 182/115 H Pulse Oximetry 94 95 99 05/05/21 15:30 05/05/21 16:00 Pulse Rate 71 77 Respiratory Rate 15 18 Blood Pressure 185/102 H 165/112 H Pulse Oximetry 98 98 Oxygen Delivery Method Room Air Narrative Exam Narrative: GENERAL APPEARANCE: Well developed, well nourished, in no acute distress. SKIN: Inspection of the skin reveals no rashes, ulcerations or petechiae. HEENT: Normocephalic atraumatic, extraocular muscles are intact, oropharynx is clear and mucous membranes are moist, neck is supple without adenopathy NECK: Supple and symmetric. There was no thyroid enlargement, and no tenderness, or masses were felt. CHEST: Normal AP diameter and normal contour without any kyphoscoliosis. LUNGS: Auscultation of the lungs revealed no wheezes, rhonchi, or rales. CARDIOVASCULAR: There was a regular rate and rhythm without any murmurs, gallops, rubs. Peripheral pulses were 2+ and symmetric. ABDOMEN: Soft, minimal distension with mild periumbilical tenderness. MUSCULOSKELETAL: There was no tenderness or effusions noted. Muscle strength and tone were normal. EXTREMITIES: No cyanosis, clubbing or edema. NEUROLOGIC: Alert and oriented x 3. Normal affect. Strength is +5/5 in the Upper Extremities and Lower Extremities Bilaterally. Objective Imaging CT scan - abdomen: Radiologist's impression: IMPRESSION: ? Dilated small bowel, probably mostly ileal loops in keeping with bowel obstruction.? Superimposed infectious or inflammatory enteritis cannot be excluded. ? Diffuse moderate ascites. ? Large heterogeneous mass within the central pelvis, technically nonspecific.? This could reflect numerous poorly defined uterine fibroids although cannot exclude other possibilities.? The ovaries are not well visualized and ovarian neoplasm is technically in the differential.? Please correlate with clinical and operative history. Labs Result Diagrams: 05/05/21 08:43 05/05/21 08:43 Labs: Laboratory Results - last 24 hr 05/05/21 05/05/21 05/05/21 08:43 08:43 08:43 WBC 9.3 RBC 5.86 H Hgb 17.0 H Hct 50.9 H MCV 87.0 MCH 29.1 MCHC 33.4 RDW 13.2 Plt Count 292 Neut % (Auto) 91.2 H Lymph % (Auto) 5.4 L [place] % (Auto) 3.0 Eos % (Auto) 0.0 L Baso % (Auto) 0.4 Neut # (Auto) 8500 H Lymph # (Auto) 500 L [place] # (Auto) 300 Eos # (Auto) 0 Baso # (Auto) 0 Sodium 140 Potassium 3.3 L Chloride 104 Carbon Dioxide 21 L BUN 17 Creatinine 0.78 Estimated GFR > 60.0 BUN/Creatinine Ratio 21.8 Glucose 184 H Calcium 10.1 Total Bilirubin 0.6 AST 51 H ALT 29 Alkaline Phosphatase 78 Total Creatine Kinase 415 H CK-MB (CK-2) 2.28 CK-MB (CK-2) Rel Index 0.5 L Troponin I < 0.012 Total Protein 8.7 H Albumin 4.9 Globulin 3.8 Albumin/Globulin Ratio 1.3 Lipase 32 CA 125 Antigen Urine RBC Urine WBC Ur Squamous Epith Cells Urine Bacteria Ur Culture Indicated? SARS-CoV-2 (PCR) 05/05/21 05/05/21 05/05/21 08:43 10:05 11:27 WBC RBC Hgb Hct MCV MCH MCHC RDW Plt Count Neut % (Auto) Lymph % (Auto) [place] % (Auto) Eos % (Auto) Baso % (Auto) Neut # (Auto) Lymph # (Auto) [place] # (Auto) Eos # (Auto) Baso # (Auto) Sodium Potassium Chloride Carbon Dioxide BUN Creatinine Estimated GFR BUN/Creatinine Ratio Glucose Calcium Total Bilirubin AST ALT Alkaline Phosphatase Total Creatine Kinase CK-MB (CK-2) CK-MB (CK-2) Rel Index Troponin I Total Protein Albumin Globulin Albumin/Globulin Ratio Lipase CA 125 Antigen 96.8 H Urine RBC 10-30/hpf H Urine WBC None seen Ur Squamous Epith Cells None seen Urine Bacteria None seen Ur Culture Indicated? Cult not indicated SARS-CoV-2 (PCR) Negative [facility] Medical History (Updated 05/05/21 @ 16:36 by Wojciech Norwood DO) Recurrent pneumothorax Small bowel obstruction Surgical History (Updated 05/05/21 @ 16:36 by Wojciech Norwood DO) History of appendectomy History of lung surgery Family History (Updated 05/05/21 @ 16:36 by Wojciech Norwood DO) Father Hypertension Mother Hypertension Tobacco & Substance Use Smoking Status: Never smoker alcohol intake: current (rare 0-1 drinks per week) substance use type: does not use Assessment & Plan Assessment & Plan narrative: 56-year-old female admitted with small-bowel obstruction, likely secondary to adhesive disease, who was noted to have very elevated blood pressures in the emergency room. Medicine was asked for consultation. 1. Hypertension, acute -suspect set at least some component secondary to pain. Will continue to monitor now off of medications. She was given a dose of oral metoprolol in the emergency room and will monitor her response to this. and adjust as needed. - check EKG - strong family history of HTN - ordered TSH 2. Small bowel obstruction, acute, present on admission - likely secondary to adhesions. General Surgery primary team, defer management at this time. - started on clears per surgery orders so for now can use oral medications for BP control. 3. hypokalemia, acute, present on admission - likely secondary to GI losses from SBO. Will replete with 40 mg IV now. 4. Elevated glucose - 184 on admission labs, ordered A1c. 5. uterine fibroids, chronic Code: Full as discussed with the patient, surrogate is her fam COVID: negative. Medicine will continue to follow this patient. I have utilized all available immediate resources to obtain, update, or review the patient's current medications. Time Spent With Patient Critical Care time: I spent a total of [] minutes of critical care time on this patient's care today; this time is exclusive of procedural time.
[2021-05-05] MEDS: POTASSIUM CHLORIDE IN WATER 10 MEQ/100 ML PIGGYBACK 100 MEQ IV ×4 (17:33→23:36)
[2021-05-05] MEDS: LACTATED RINGERS 1,000 ML 125 ML IV (17:35)
[2021-05-05] MEDS: FLEETS ENEMA 1 EACH PR (18:05)
[2021-05-05] MEDS: PANTOPRAZOLE 40 MG VIAL 20 MG IV (20:25)
--- NOTE | 2021-05-05 22:40 | PC.NURSE ---
Admit/Evening Shift Note- Patient arrived to room via stretcher fromER at 1620. Patient alert and oriented and and to make needs known to staff. Patient unsteady and stumbling when ambulating from stretcher in hallway to bed in room. Spouse and patient reported this due to IV dilaudid. Bed alarm activated once in bed and talked with patient about calling for assistance. Patient agreed but did forget a few time and attempt to get up out of bed on her own. Bed alarm did stop patient. Admit questions done, home medications reviewed, physical assessment done, and skin check completed. safety meassures in place. bed alarm activated. call cool and phone within reach. will continue to monitor.
--- NOTE | 2021-05-05 23:51 | PC.NURSE ---
Addendum entered by Estela Kelly R.N. 05/07/21 02:36: at [address] Gregory was informed of elevated BP's and reviewed past readings and medications. New order was received to give Amlodipine to start when patient next wakens. Original Note: Patient is alert and oriented. Breath sounds CTA with RA sat of 98%. HRR. BP elevated at 150/103 which is improved from earlier readings. Denies any headache. Denies nausea. BT hypoactive but states she had a formed BM earlier; abdomen is mildly distended and tender to palpation. States there is some discomfort when urinating but denies burning, frequency or urgency. Is able to move self in bed. Up to bathroom with SBA. Is wearing bilateral calf SCD's. Receiving scheduled Toradol and denies pain when questioned. Fall risk score is moderate but patient agrees to call for staff assistance when getting out of bed.
[2021-05-06] VITALS (9 sets, daily range): BP systolic 133–151; BP diastolic 61–99; PULSE 85–121; RESP 16–20; TEMP 36.1–37.3; O2SAT 93–97
--- NOTE | 2021-05-06 | DI.RAD.S_ITS ---
PROCEDURE: XR GASTROGRAFIN CHALLENGE COMPARISON: [facility], CT, CT ABDOMEN PELVIS W CON, 05/05/2021, 10:11. INDICATIONS: Small-bowel obstruction FINDINGS: Gastrografin was administered. 9 hours later this image was obtained. On this image, dilated loops of small bowel are seen, which measure up to 3.9 cm. The proximal half of the small bowel demonstrates opacification. A significant amount Gastrografin remains within the stomach. The distal small bowel and the colon are not opacified. IMPRESSION: These imaging findings are most compatible with continued small bowel obstruction. High-grade ileus is possible, yet considered to be less likely. Dictated by: Alonzo Rosales M.D. on 05/07/2021 at 6:55 Approved by: Alonzo Rosales M.D. on 05/07/2021 at 6:57
[2021-05-06] MEDS: HYDROMORPHONE 1 MG INJ IV ×3 (02:31→17:00)
[2021-05-06] MEDS: ONDANSETRON 4 MG/2 ML INJ IV (02:31)
[2021-05-06] MEDS: AMLODIPINE 5 MG TABLET PO ×2 (02:32→07:57)
[2021-05-06] MEDS: KETOROLAC 30 MG/ML VIAL 15 MG IV (04:54)
[2021-05-06] MEDS: LACTATED RINGERS 1,000 ML 125 ML IV (05:38)
[2021-05-06 06:13] LABS: TSH w/ Reflex to FT4 0.82 uIU/mL (0.47-4.68)
[2021-05-06] MEDS: PANTOPRAZOLE 40 MG VIAL 20 MG IV (07:57)
--- NOTE | 2021-05-06 10:37 | PM.PN.1 ---
Subjective Subjective Date Patient Seen: 05/06/21 Time Patient Seen: 10:37 Interval history: SBO vs gastroenteritis. Constipation. Large fibroid uterus Exam Vital Signs (past 8 hours): - 05/06/21 04:30 05/06/21 07:24 05/06/21 09:26 Temperature 98.6 F 98.0 F Pulse Rate 85 97 H Respiratory Rate 16 18 Blood Pressure 149/94 H 150/99 H Pulse Oximetry 95 96 94 Oxygen Delivery Method Room Air Oxygen Flow Rate 0 Narrative Exam Narrative: Abdomen is soft and non tender Objective Labs Result Diagrams: 05/05/21 08:43 05/05/21 08:43 Labs: Laboratory Results - last 24 hr 05/05/21 05/05/21 05/06/21 08:43 11:27 05:12 Hemoglobin A1c 5.0 CA 125 Antigen 96.8 H TSH SARS-CoV-2 (PCR) Negative 05/06/21 05:12 Hemoglobin A1c CA 125 Antigen TSH 0.82 SARS-CoV-2 (PCR) PFSH Medical History (Updated 05/05/21 @ 16:36 by Wojciech Norwood DO) Recurrent pneumothorax Small bowel obstruction Surgical History (Updated 05/05/21 @ 16:36 by Wojciech Norwood DO) History of appendectomy History of lung surgery Family History (Updated 05/05/21 @ 16:36 by Wojciech Norwood DO) Father Hypertension Mother Hypertension Social History household members: spouse Smoking Status: Never smoker alcohol intake: current (rare 0-1 drinks per week) substance use type: does not use Assessment & Plan Assessment & Plan narrative: Patient had BM last night. Nausea improved, no further emesis. GI issue is resolving clinically. HTN Plan: advance diet as tolerated and continue observation. Dr. Norwood addressing hypertension Time Spent With Patient Time with patient: less than 30 minutes Critical Care time: I spent a total of [] minutes of critical care time on this patient's care today; this time is exclusive of procedural time. Quality VTE Deep Vein Thrombosis/Pulmonary Embolism Present on Admission: No
--- NOTE | 2021-05-06 11:19 | CM.DANOTE ---
DCP: Case received, EMR reviewed and met with patient. Introduced self and role. Was able to obtain information regarding patient's baseline activity level prior to hospitalization, as well as her current living situation. DCP assessment was completed with information currently available. Patient is a 56 year old female who admitted yesterday afternoon to the care of the hospitalist team. PCP: Dr. Schwartz (In [place]). Payer: confirmed: [facility]. Patient came to the hospital via private vehicle secondary to having abdominal cramping, and nausea. Patient was noted to have small bowel obstruction, as well as HTN. She also was noted to have pelvic mass, fibroid in uterus. She is also having consult with CONCRETE POLISHER. She is here for IV hydration, and if she does not improve, she could possibly have hysterectomy. Met with patient in her room. She was sitting up in bed, alert and oriented, having some breakfast. She confirmed that she resides in [place], where her primary provider is. She is here visiting her significant other, Stanley Carranza, who resides here in [place]. P: DCP to continue to follow for any needs. Patient should be able to go home when she is deemed medically stable. Isadora Velasco RN/Soil Fertility Extension Specialist Discharge Planning/Care Management CM Discharge Assessment Start: 05/06/21 11:18 Freq: Status: Active Protocol: Document 05/06/21 11:18 (Rec: 05/06/21 11:19 [id number]) Discharge Planning Assessment Assigned Signing Teacher Isadora Velasco RN/Soil Fertility Extension Specialist Advance Directives? No Advance Directives on File No History Provided By Patient,Medical Record Prior Living Arrangements House Household Members spouse Type of transporation used prior to Drives own vehicle admit Independent with ADL's Yes Is patient alert and oriented? Yes Caregiver for Another No Barriers to Discharge No Discharge Plan Home Transportation Arrangement Life Partner Referrals Initiated None needed Whiteboard Updated in Patient Room with Yes name and ext. # of Signing Teacher Review Status In Process Next Review Type Continued Stay Review
[2021-05-06] MEDS: polyethylene glycoL 3350 17 GM POWD.PACK PO ×3 (11:40→20:36)
--- NOTE | 2021-05-06 12:51 | P.PN_ITS ---
Subjective Subjective Date Patient Seen: 05/06/21 Time Patient Seen: 12:51 Interval history: improved BP, started on amlodipine overnight. now with lower abdominal pain, some wretching with food but no vomiting. had a BM yesterday evening. Exam Vital Signs (past 8 hours): - 05/06/21 07:24 05/06/21 09:26 05/06/21 12:19 Temperature 98.0 F 97.0 F L Pulse Rate 97 H 96 H Respiratory Rate 18 20 Blood Pressure 150/99 H 143/96 H Pulse Oximetry 96 94 94 Oxygen Delivery Method Room Air Oxygen Flow Rate 0 Narrative Exam Narrative: GENERAL APPEARANCE: Well developed, well nourished, in no acute distress. SKIN: Inspection of the skin reveals no rashes, ulcerations or petechiae. HEENT:? Normocephalic atraumatic, extraocular muscles are intact, oropharynx is clear and mucous membranes are moist, neck is supple without adenopathy NECK: Supple and symmetric. There was no thyroid enlargement, and no tenderness, or masses were felt. CHEST: Normal AP diameter and normal contour without any kyphoscoliosis. LUNGS: Auscultation of the lungs revealed no wheezes, rhonchi, or rales. CARDIOVASCULAR: There was a regular rate and rhythm without any murmurs, gallops, rubs. Peripheral pulses were 2+ and symmetric. ABDOMEN: Soft, minimal distension with mild now suprapubic tenderness. MUSCULOSKELETAL: There was no tenderness or effusions noted. Muscle strength and tone were normal. EXTREMITIES: No cyanosis, clubbing or edema. NEUROLOGIC: Alert and oriented x 3. Normal affect. Strength is +5/5 in the Upper Extremities and Lower Extremities Bilaterally. Objective Labs Result Diagrams: 05/05/21 08:43 05/05/21 08:43 Labs: Laboratory Results - last 24 hr 05/06/21 05/06/21 05:12 05:12 Hemoglobin A1c 5.0 TSH 0.82 [facility] Medical History (Updated 05/05/21 @ 16:36 by Wojciech Norwood DO) Recurrent pneumothorax Small bowel obstruction Surgical History (Updated 05/05/21 @ 16:36 by Wojciech Norwood DO) History of appendectomy History of lung surgery Family History (Updated 05/05/21 @ 16:36 by Wojciech Norwood DO) Father Hypertension Mother Hypertension Social History household members: spouse Smoking Status: Never smoker alcohol intake: current (rare 0-1 drinks per week) substance use type: does not use Assessment & Plan Assessment & Plan narrative: 56-year-old female admitted with small-bowel obstruction, likely secondary to adhesive disease, who was noted to have very elevated blood pressures in the emergency room.? Medicine was asked for consultation. 1. Hypertension, acute ?-suspect set at least some component secondary to pain. started on amlodipine with improvement today. continue to monitor, consider increasing to 10 mg daily depending on BP throughout the day. ?- EKG unremarkable. ?- strong family history of HTN ?- TSH unremarkable. 2. Small bowel obstruction, acute, present on admission ?- likely secondary to adhesions. General Surgery primary team, defer management at this time. ?- started on clears per surgery orders so for now can use oral medications for BP control. 3. hypokalemia, acute, present on admission ?- likely secondary to GI losses from SBO. repleted with IV. 4. Elevated glucose ?- 184 on admission labs, ordered A1c which was 5.0% 5. uterine fibroids, chronic Code: Full as discussed with the patient, surrogate is her fam COVID: negative. Medicine will continue to follow this patient. I have utilized all available immediate resources to obtain, update, or review the patient's current medications. Time Spent With Patient Critical Care time: I spent a total of [] minutes of critical care time on this patient's care today; this time is exclusive of procedural time. Quality VTE Deep Vein Thrombosis/Pulmonary Embolism Present on Admission: No
[2021-05-06] MEDS: HYDROCODONE/ACET 5/325 TABLET 2 TAB PO (14:07)
--- NOTE | 2021-05-06 18:46 | PC.NURSE ---
Addendum entered by Floresita Ward R.N. 05/06/21 22:36: pt was feeling anxious. EKG was ST 126bpm. 113bmp at rest. notified provider. ordered xanax 0.5mg q6hr. pt denies chest pain or palpitation. Original Note: pt tachy 110-120's notified provider. pt reports she does not have any pain. she received 1mg of dilaudid earlier. 95%RA.
[2021-05-06] MEDS: ALPRAZolam 0.5 MG TABLET PO (20:36)
[2021-05-06] MEDS: CELECOXIB 200 MG CAPSULE PO (20:36)
[2021-05-07] VITALS (22 sets, daily range): BP systolic 117–152; BP diastolic 73–107; PULSE 87–124; RESP 5–23; TEMP 36.3–36.9; O2SAT 94–99
--- NOTE | 2021-05-07 | PATH_ITS ---
[facility] Accession Number: [id number] . 01 Material submitted: . PART A: small bowel - SMALL BOWEL; TERMINAL ILEUM PART B: uterus - UTERUS AND BILATERAL FALLOPIAN TUBES . 01 Clinical history: . SEVERE UPPER ABDOMINAL CRAMPS, NAUSEA . 02 Diagnosis: A. Small Bowel, Terminal Ileum, Segmental Resections: Small bowel with transmural coagulative necrosis and serositis with adhesions. Inked margins appear viable. No evidence of vasculitis, dysplasia or malignancy. . B. Uterus and Bilateral Fallopian Tubes, Hysterectomy and Bilateral Salpingectomy: 1. Adenomyosis. 2. Multiple leiomyomas. 3. Serositis. 4. Bilateral fallopian tubes with salpingitis, vascular congestion and adhesions. 5. Adherent ovary with vascular congestion and focal serositis. 6. Negative for atypia, epithelial dysplasia, and malignancy. [facility] 05/10/2021 1553 Local . 02 Electronically signed: . Gail Gomez MD, Pathologist NPI- [id number] . 01 Gross description: . A. Received in formalin, labeled small bowel, terminal ileum consists of two unoriented portions of small intestine measuring 12.0 cm in length by 5.0 cm in diameter and 28 cm in length by 5.5 cm in diameter. The margins are stapled. The serosa is pink-purple, hyperemic and smooth with focal fibrinous adhesion. The mucosal surfaces are a maldonado-green to red-brown, velvety mucosa with normal to attenuated mucosal folds. The largest portion of small intestine reveals an area of stricture measuring 1.5 cm in diameter. The wall thickness measures 0.1 cm. Survey Superintendent sections are submitted. . A1: Survey Superintendent perpendicular sections with smaller portion of small intestine (blue and black) stapled margins. A2: Survey Superintendent perpendicular sections of larger portion of small intestine (blue and black), stapled margins. A3: Survey Superintendent section of area of stricture. A4: Survey Superintendent sections of larger portion of small intestine. A5: Survey Superintendent mesenteric margin, en face (blue). A6: Survey Superintendent sections of smaller portion of small intestine. . B. Received in formalin, labeled uterus and bilateral fallopian tubes consists of a 489-gram, supracervically resected uterus measuring 12.5 cm from superior fundus to lower uterine segment by 12.2 cm from cornu to cornu by 7.0 cm from anterior to posterior. The serosa is maldonado-pink and ragged with focal areas of hemorrhage and fibrinous adhesions. The specimen is bivalved to reveal a 5.5 x 2.0 cm endometrial cavity displaying a maldonado-pink hemorrhagic endometrium measuring 0.1 cm in thickness. The myometrium is maldonado-pink and trabeculated, measuring up to 3.4 cm in thickness. There are multiple maldonado-white whorled leiomyomata ranging from 0.3-6.8 cm with no areas of hemorrhage, necrosis or cystic degeneration. The attached fallopian tubes measure 6.0 cm in length by 1.5 cm in diameter and 7.0 cm in length by 1.6 cm in diameter. The serosa is pink-purple with fibrinous adhesions. Sectioning reveals a maldonado-pink mucosa and a stellate lumen measuring 0.6 cm in diameter. Survey Superintendent sections are submitted. . B1-B2: Lower uterine segment. B3-B8: Survey Superintendent uterus and leiomyomata. B9-B10: Onyx fallopian tube, counter sales representative cross sections and bisected fimbria. B11-B12: Longer fallopian tube, central cross sections and bisected fimbria. (EA:[id number]) /MRV 05/10/[address] [place] [address] . 02 Pathologist provided ICD-10: K55.019, N80.0, D25.9 . 02 CPT . 055293, [id number] Performed at: 01 [facility] [address], [place], [place] [id number] MD Bhaskar Hill MD Phone: [phone] Performed at: 02 [facility] [address] [place], [place] [id number] MD Gail Gomez MD Phone: [phone]
[2021-05-07] MEDS: HYDROCODONE/ACET 5/325 TABLET 2 TAB PO (01:26)
--- NOTE | 2021-05-07 01:54 | PC.NURSE ---
Patient anxious/restless at start of shift wanting something to sleep; was informed that she already had received xanax after which patient turned lights off and had appeared to be asleep. Call light came on around 0130 and was assisted to bathroom. States she hasn't been able to sleep and seems very restless and anxious but too early to give additional xanax at that time. Patient did complain of lower abdomen being sore and rated severity as 8/10 so medicated with Vicodin. Is oriented but seems to be forgetful. Breath sounds CTA with RA sat of 93%. HRR but remains tachy at 120 bpm (MD was made aware on previous shift). Denied nausea. BT hypoactive and abdomen still mildly distended and tender to palpation; denies flatus. Voided 100cc which FRONT END JAVA DEVELOPER reports was clear but dark shahbaz. Is able to move herself in bed but seems to be weak tonight. Was assisted to bathroom with SBA. Is wearing bilateral calf SCD's. Fall risk score is moderate and due to forgetfulness/restlessness bed alarm is now activated.
[2021-05-07] MEDS: ALPRAZolam 0.5 MG TABLET PO (03:01)
[2021-05-07 05:28] LABS: Hematocrit 45.5 % (36-46); Mean Corpuscular HGB Conc 32.8 % (30-36); Mean Corpuscular Hemoglobin 28.4 PG (26-34); Mean Corpuscular Volume 86.5 fL (80-100); Platelet Count 231 X10^3/uL (150-400); Red Blood Cell Count 5.27 X10^6/uL (4.0-5.2); Red Cell Distribution Width 13.4 % (11.6-14.8); White Blood Cell Count 14.3 X10^3/uL (4.5-11.0)
[2021-05-07 05:29] LABS: BUN Creatinine Ratio 14.8 (6-22); Blood Urea Nitrogen 51 mg/dL (7-17); Calcium 9.3 mg/dL (8.4-10.2); Carbon Dioxide 29 mmol/L (22-32); Chloride 100 mmol/L (98-107); Estimated Glomerular Filt Rate 13.8 mL/min (>60); Glucose 134 mg/dL (70-100); HEMOLYSIS < 15 (0-50); Magnesium 2.4 mg/dL (1.6-2.3); Potassium 3.8 mmol/L (3.4-5.1); Sodium 139 mmol/L (137-145)
[2021-05-07 05:31] LABS: Add Manual Diff / Slide Review YES
[2021-05-07] MEDS: SODIUM CHLORIDE 0.9% 1,000 ML 1000 ML IV ×2 (05:51→22:50)
[2021-05-07] MEDS: SODIUM CHLORIDE 0.9% FLUSH 10 ML IV ×2 (05:52→21:46)
[2021-05-07 05:59] LABS: Neutrophils Absolute Manual 12155 /uL (3000-5900); RBC Morphology Normal Morphology; Total Cells Counted 100
[2021-05-07] MEDS: PANTOPRAZOLE DR 20 MG TABLET PO ×2 (06:28→09:22)
[2021-05-07] MEDS: HYDROMORPHONE 1 MG INJ IV ×2 (07:41→21:43)
[2021-05-07] MEDS: SODIUM CHLORIDE 0.9% 1,000 ML 999 ML IV (08:01)
[2021-05-07] MEDS: LACTATED RINGERS 1,000 ML 150 ML IV ×2 (09:11→18:37)
[2021-05-07] MEDS: AMLODIPINE 5 MG TABLET PO (09:11)
[2021-05-07] MEDS: GABAPENTIN 300 MG CAPSULE PO ×2 (09:22→23:21)
[2021-05-07] MEDS: SCOPOLAMINE 1 PATCH TOP (09:22)
--- NOTE | 2021-05-07 10:35 | PM.CN ---
History of Present Illness Consult details Date Patient Seen: 05/07/21 Time Patient Seen: 10:35 Chief complaint: severe upper abdominal cramps, nausea Reason for consult: Enlarged fibroid uterus Requesting provider: Riddhi Saenz Narrative: Patient is a 56-year-old 1 para 0 who presented to the emergency department on May 05, 2021 with abdominal pain and nausea and vomiting. Patient has a longstanding history an enlarged fibroid uterus. She has had multiple surgeries to remove fibroids. She has also had an appendectomy. She reports that she did have a small-bowel obstruction several years ago which resolved on its own. Patient reports going through menopause in the last 3-4 years. Prior to that she had heavy bleeding. No early satiety prior to this episode that brought her to the ER. No change in bowel or bladder. Meds Home Medications and Allergies Allergies Allergy/AdvReac Type Severity Reaction Status Date / Time No Known Drug Allergies Allergy Verified 05/05/21 23:46 Review of Systems Review of Systems ROS: Yes All systems reviewed with the patient and are negative except as otherwise documented Constitutional Constitutional: Reports as per HPI Exam Vital Signs (past 8 hours): - 05/07/21 04:17 05/07/21 07:50 05/07/21 10:14 Temperature 97.4 F L 97.8 F Pulse Rate 113 H 123 H Respiratory Rate 16 23 Blood Pressure 146/88 H 148/107 H Pulse Oximetry 95 94 95 Oxygen Delivery Method Room Air Oxygen Flow Rate 0 Narrative Exam Narrative: Generally: A thin black female in moderate distress secondary to abdominal pain. Patient keeps shifting on the bed. Lungs: Clear to auscultation bilaterally Cardiovascular: Regular rate and rhythm Abdomen: Slightly distended. Guarding and rebound tenderness. Well-healed scars. Pelvic exam: Deferred Extremities: No edema. Objective Labs Result Diagrams: 05/07/21 04:52 05/07/21 04:52 Labs: Laboratory Results - last 24 hr 05/07/21 05/07/21 04:52 04:52 WBC 14.3 H D RBC 5.27 H Hgb 15.0 Hct 45.5 MCV 86.5 MCH 28.4 MCHC 32.8 RDW 13.4 Plt Count 231 Neut % (Auto) Not Reportable Lymph % (Auto) Not Reportable [place] % (Auto) Not Reportable Eos % (Auto) Not Reportable Baso % (Auto) Not Reportable Lymph # (Auto) Not Reportable [place] # (Auto) Not Reportable Baso # (Auto) Not Reportable Total Counted 100 Seg Neutrophils % 48.0 Band Neutrophils % 37.0 H Lymphocytes % (Manual) 5.0 L Monocytes % (Manual) 7.0 Metamyelocytes % 3.0 H Neutrophils # (Manual) 85367 H RBC Morphology Normal morphology Sodium 139 Potassium 3.8 Chloride 100 Carbon Dioxide 29 BUN 51 H Creatinine 3.45 H Estimated GFR 13.8 L BUN/Creatinine Ratio 14.8 Glucose 134 H Calcium 9.[address] scan: Pelvic mass unknown origin Ultrasound: 12 week size multi fibroid uterus. Neither ovary could be visualized. [facility] Medical History (Updated 05/05/21 @ 16:36 by Wojciech Norwood DO) Recurrent pneumothorax Small bowel obstruction Surgical History (Updated 05/05/21 @ 16:36 by Wojciech Norwood DO) History of appendectomy History of lung surgery Family History (Updated 05/05/21 @ 16:36 by Wojciech Norwood DO) Father Hypertension Mother Hypertension Social History household members: spouse Tobacco & Substance Use Smoking Status: Never smoker alcohol intake: current (rare 0-1 drinks per week) substance use type: does not use Assessment & Plan Assessment & Plan narrative: Assessment: 56-year-old 1 para 0 with an enlarged fibroid uterus and a small bowel obstruction that require surgery Plan: Open supracervical hysterectomy and removal of both tubes We discussed removal of the tubes to decrease her future risk of ovarian cancer Patient adamant about keeping her ovaries We discussed keeping the cervix and the support ligaments The risks, benefits, and alternatives to the procedure were explained to the patient. The risks including bleeding, infection, injury to the bowel, bladder, or ureters. She understands these risks and agrees to proceed. A full par Q was held and consent form was signed. COVID-19 COVID-19 status: Negative Result date/Date tested (Pos, Neg/Pending): 05/05/21 Time Spent With Patient Time with patient: 30 to 49 minutes with 50% spent counseling/coordinating care Critical Care time: I spent a total of [] minutes of critical care time on this patient's care today; this time is exclusive of procedural time.
--- NOTE | 2021-05-07 10:45 | CM.DPC ---
DCP Cont: Discussed patient during team rounds. She is to be going to surgery for small bowel obstruction. P: DCP will continue to follow patient for any needs. Isadora Velasco RN/Cryptographic Technician
--- NOTE | 2021-05-07 10:47 | PM.PREOP ---
Pre-operative Note COVID-19 COVID-19 status: Negative Result date/Date tested (Pos, Neg/Pending): 05/05/21 Interval Note History & Physical reviewed/Exam performed by Physician: Yes Changes to H&P: Yes H&P completed within 30 days and has changed as indicated here:: No significant clinical progression for resolution of small-bowel obstruction. Gastrografin challenge is consistent with persistent small bowel obstruction with a transition being in the pelvis. Patient no longer passing gas. She is nauseated. Also evidence of hypovolemia and acute renal injury related with a creatinine bump of greater than 3. NSAIDs have been stopped. She has been bolused with 2 L of normal saline and will proceed with surgery for exploratory laparotomy with lysis of adhesions and hysterectomy by Dr. Kyung Champion.
--- NOTE | 2021-05-07 11:02 | P.PN_ITS ---
Subjective Subjective Date Patient Seen: 05/07/21 Time Patient Seen: 11:02 Interval history: ?improved BP, started on amlodipine overnight. Miserable overnight with abdominal pain and not tolerating a diet. Persistent obstruction on follow through [facility]. Plan for OR today with surgery and STORE RECEIVING CLERK for hysterectomy. Creatinine bumped dramatically to 3.5. Given IV fluids. Exam Vital Signs (past 8 hours): - 05/07/21 04:17 05/07/21 07:50 05/07/21 10:14 Temperature 97.4 F L 97.8 F Pulse Rate 113 H 123 H Respiratory Rate 16 23 Blood Pressure 146/88 H 148/107 H Pulse Oximetry 95 94 95 Oxygen Delivery Method Room Air Oxygen Flow Rate 0 Narrative Exam Narrative: ENERAL APPEARANCE: Well developed, well nourished, in no acute distress. SKIN: Inspection of the skin reveals no rashes, ulcerations or petechiae. HEENT:? Normocephalic atraumatic, extraocular muscles are intact, oropharynx is clear and mucous membranes are moist, neck is supple without adenopathy NECK: Supple and symmetric. There was no thyroid enlargement, and no tenderness, or masses were felt. CHEST: Normal AP diameter and normal contour without any kyphoscoliosis. LUNGS: Auscultation of the lungs revealed no wheezes, rhonchi, or rales. CARDIOVASCULAR: There was a regular rate and rhythm without any murmurs, gallops, rubs. Peripheral pulses were 2+ and symmetric. ABDOMEN: Soft, minimal distension with mild now suprapubic tenderness. MUSCULOSKELETAL: There was no tenderness or effusions noted. Muscle strength and tone were normal. EXTREMITIES: No cyanosis, clubbing or edema. NEUROLOGIC: Alert and oriented x 3. Normal affect. Strength is +5/5 in the Upper Extremities and Lower Extremities Bilaterally. Objective Labs Result Diagrams: 05/07/21 04:52 05/07/21 04:52 Labs: Laboratory Results - last 24 hr 05/07/21 05/07/21 04:52 04:52 WBC 14.3 H D RBC 5.27 H Hgb 15.0 Hct 45.5 MCV 86.5 MCH 28.4 MCHC 32.8 RDW 13.4 Plt Count 231 Neut % (Auto) Not Reportable Lymph % (Auto) Not Reportable [place] % (Auto) Not Reportable Eos % (Auto) Not Reportable Baso % (Auto) Not Reportable Lymph # (Auto) Not Reportable [place] # (Auto) Not Reportable Baso # (Auto) Not Reportable Total Counted 100 Seg Neutrophils % 48.0 Band Neutrophils % 37.0 H Lymphocytes % (Manual) 5.0 L Monocytes % (Manual) 7.0 Metamyelocytes % 3.0 H Neutrophils # (Manual) 28054 H RBC Morphology Normal morphology Sodium 139 Potassium 3.8 Chloride 100 Carbon Dioxide 29 BUN 51 H Creatinine 3.45 H Estimated GFR 13.8 L BUN/Creatinine Ratio 14.8 Glucose 134 H Calcium 9.3 Magnesium 2.4 H [facility] Medical History (Updated 05/07/21 @ 10:47 by Angy Mayen MD) Recurrent pneumothorax Small bowel obstruction Surgical History (Updated 05/05/21 @ 16:36 by Wojciech Norwood DO) History of appendectomy History of lung surgery Family History (Updated 05/05/21 @ 16:36 by Wojciech Norwood DO) Father Hypertension Mother Hypertension Social History household members: spouse Smoking Status: Never smoker alcohol intake: current (rare 0-1 drinks per week) substance use type: does not use Assessment & Plan Assessment & Plan narrative: 56-year-old female admitted with small-bowel obstruction, likely secondary to adhesive disease, who was noted to have very elevated blood pressures in the emergency room.? Medicine was asked for consultation. 1. Hypertension, acute ?-suspect set at least some component secondary to pain. started on amlodipine with improvement. continue to monitor, consider increasing to 10 mg daily depending on BP after OR. ?-? EKG unremarkable. ?- strong family history of HTN ?- TSH unremarkable. 2. Small bowel obstruction, acute, present on admission ?- likely secondary to adhesions. General Surgery primary team, defer management at this time. ?- started on clears per surgery orders so for now can use oral medications for BP control. 3. PARVIN - suspect secondary to dehydration. Given abdominal pathology check US to rule out obstruction. - aggressive IV fluids, catheter placement for strict monitoring. 4. hypokalemia, acute, present on admission ?- likely secondary to GI losses from SBO. repleted with IV. 5. Elevated glucose ?- 184 on admission labs, ordered A1c which was 5.0% 6. uterine fibroids, chronic - plan for hysterectomy with STORE RECEIVING CLERK surgery today given plan for OR. Code: Full as discussed with the patient, surrogate is her fam COVID: negative. Medicine will continue to follow this patient. I have utilized all available immediate resources to obtain, update, or review the patient's current medications. Time Spent With Patient Critical Care time: I spent a total of [] minutes of critical care time on this patient's care today; this time is exclusive of procedural time. Quality VTE Deep Vein Thrombosis/Pulmonary Embolism Present on Admission: No
--- NOTE | 2021-05-07 11:19 | PM.PREOP ---
Pre-operative Note COVID-19 COVID-19 status: Negative Result date/Date tested (Pos, Neg/Pending): 05/05/21 Interval Note History & Physical reviewed/Exam performed by Physician: Yes Changes to H&P: No H&P completed within 30 days and has changed as indicated here:: 05/07/21
[2021-05-07] MEDS: LACTATED RINGERS 1,000 ML 42 ML IV ×3 (12:50→15:34)
[2021-05-07] MEDS: CEFAZOLIN 1 GM VIAL 2 GM IV (13:26)
--- NOTE | 2021-05-07 13:40 | PC.NURSE ---
Pt to OR around 1230. Per PACU nurse, surgery/recovery will be around 3 hours estimatiion. Provided Ancef 2 gram IV to DRUG ABUSE TECHNICIAN.
--- NOTE | 2021-05-07 13:54 | SUR.OPER ---
Supine on padded OR bed, head on pillow, arms padded and tucked at sides, legs uncrossed, safety belt at thigh, tape over blanket over lower legs .
--- NOTE | 2021-05-07 15:54 | PM.GYNOP.1 ---
Operative Date/Time/Diagnoses Date of procedure: 05/07/21 Time of procedure: 15:55 Pre-op diagnosis: Enlarged fibroid uterus Small-bowel obstruction Post-op diagnosis: same Procedure & Clinicians Procedure: Procedures Operation Date: 05/07/21 11:45 Actual Procedure Side Surgeon p Open small bowel resection Not Applicable Angy Mayen MD s Open Supracervical Hysterectomy and bilateral salpingectomy Not Applicable Kayley Champion MD Indications: Small-bowel obstruction Enlarged fibroid year Surgeon: Kyaley Champion Senior Market Research Analyst: Angy Mayen Anesthesia Type: General Operative Notes Findings: 12 week size multi fibroid uterus Adhesions between the colon and the posterior uterus Adhesions between the left side of the uterus and the left pelvic sidewall an anterior abdominal wall Normal tubes Normal left ovary Right ovary not visualized Appendix previously removed Necrotic small bowel Closure Type: primary Specimen(s): left tube, right tube and uterus Applied: catheter (To continuous drainage) Estimated blood loss (mL): 200 Blood products transfused: none Procedure in detail: After informed consent was obtained, the patient was taken to the operating room where she was placed in the dorsal supine position. After adequate general endotracheal anesthesia was achieved, she was prepped and draped in the usual sterile fashion. A time-out was performed. Entry into the abdomen is dictated by Dr. Mayen. The excision of the necrotic small bowel and reanastomosis are dictated by Dr. Mayen. Attention was then turned to the pelvis where adhesions between the colon and the uterus were taken down by Dr. Mayen. The round ligament on the left side was doubly clamped, incised, and suture ligated with 0 Vicryl. The peritoneum was entered anteriorly and posteriorly. The infundibulopelvic ligament on the left side was doubly clamped, transected, free tied with 0 Vicryl and suture ligated with 0 Vicryl. Attention was then turned to the right side where the round ligament was doubly clamped, transected, and suture ligated with 0 Vicryl. The right tube was grasped with a Cecily. The infundibulopelvic ligament on the right side was doubly clamped, transected, free tied with 0 Vicryl and then suture ligated with 0 Vicryl. The bladder flap was created using the Metzenbaum scissors and carried all the way over to the right side. Using a moistened sponge stick the bladder was taken down off of the lower uterine segment and cervix. The uterine arteries on the left side were clamped, transected, and suture ligated with 0 Vicryl. This was repeated on the patient's right side. Using the Bovie the uterus was amputated from the cervix 2 cm above the uterosacral ligaments. There was some arterial bleeding noted from the right edge of the cervix. This was clamped with a straight Camila clamp and then suture ligated with 0 Vicryl for hemostasis. A tag suture was placed on that pedicle. The remainder of the cervix was closed with a series of simple interrupted sutures with 0 Vicryl. Hemostasis was achieved. The pelvis was copiously irrigated with warm normal saline. There was no bleeding noted. The remainder of the anastomosis of the small bowel was performed by Dr. Mayen as well as drain placement and closure of the abdomen. Complications: none Post-operative Condition: stable Disposition: PACU Plan for aftercare: To acute care after recovery
--- NOTE | 2021-05-07 16:05 | P.OP_ITS ---
Operative Date/Time/Diagnoses Date of procedure: 05/07/21 Time of procedure: 16:05 Pre-op diagnosis: SBO, pelvic mass, acute renal injury Post-op diagnosis: other (ischemic small bowel, adhesive disease) Procedure & Clinicians Procedure: Xlap NYLA small bowel resection. Hysterectomy Same procedure as scheduled: Yes Indications: SBO, SB ischemia, fibroid uterus Surgeon: Angy Mayen Touch Up Painter Hand: Kayley Champion Click Yes if Unassisted: No Anesthesia Type: General Operative Notes Findings: Adhesive disease, segment of ischemic terminal ileum ?nonviable ?, and chronic transition point and small bowel related to adhesive disease. Large fibroid uterus with adherent colon and small bowel Closure Type: primary Specimen(s): other (Uterus and terminal ileum) Estimated Blood Loss (mL): 200 Procedure in detail: Prep diagnosis: Small-bowel obstruction and pelvic mass Postop diagnosis: Same Operative procedure: Exploratory laparotomy with lysis of adhesions, small-bowel resection, hysterectomy. Surgeon: Ambreen Mayen MD ophthalmic medical assistant: Isha Champion MD Anesthesiologist: Daniela Boyd MD Findings: Adhesive disease, ischemic small bowel. large uterine fibroids Procedure: Patient is placed in a supine position. Prepped and draped sterile fashion exposure abdomen. Lower midline incision was created using open technique, sharp and blunt dissection along with electrocautery. Immediately greeted with purplish, ischemic small bowel and 50 older. Along with hemorrhagic ascites It took some work getting into the abdomen taking down adhesive disease in the pelvis to expose the small bowel which was promptly eviscerated and adhesion released however the compromise was a reversible. As was the area of chronic narrowing in the small bowel. This did represent the distal ileum up to the cecum. Linear thanh was used to resect the small bowel along with a LigaSure device for mesenteric dissection. Small bowel once these were released released and moved into the upper abdomen packing began and we moved our attention to re moval of the uterus. Sigmoid colon was densely adherent to the uterus and electrocautery and blunt dissection along with sharp dissection allowed me to remove it without apparent injury. There were serosal tears that were repaired with 3-0 silk suture. The hysterectomy that was carried out is dictated by Dr. Champion. Once we had removed the uterus I turned my attention back toward the reanastomo sis of the intestine using [id number] staple anastomosis of proximal ileum to right colon. Staple line was oversewn with interrupted 3-0 silk suture. Mesenteric defect was closed with 2-0 Vicryl. The abdomen was irrigated to a clear return and a drain was placed into the pelvis and brought out in the right lower quadrant. Drain sutured to the abdominal wall with the 3-0 nylon. I then began closure of the abdomen. Closure consisted of running looped 1-0 PDS for fascial closure. Skin was closed a running 4-0 Vicryl. Steri-Strips and sterile dressings were placed. Patient was awakened, extubated, taken to recovery room in stable condition with needle, instrument, sponge counts correct. Preoperative over the Atkinson was placed as well as an NG tube which will remain in place during her initial recovery. Decision made to take her to ICU given her acute renal injury with creatinine greater than 3 preoperative. Specimen: Ileum, uterus Blood loss: 200 mL Complications: none
--- NOTE | 2021-05-07 16:16 | DI.RAD.S_ITS ---
PROCEDURE: XR CHEST 1V INDICATIONS: NGT placement TECHNIQUE: One view of the chest was acquired. COMPARISON: [facility], CR, XR CHEST 1V, 05/05/2021, 8:51. FINDINGS: Surgical changes and devices: The tip of the gastric tube is seen overlying the mid stomach. The side hole can be seen just below the level of the diaphragm. Right upper lobe thanh are seen. Lungs and pleura: An incomplete inspiratory result is noted, causing a crowded appearance to the lung markings. Mild, streaky opacities are seen at the lung bases. No pneumothorax or significant pleural effusions are seen. Right-sided volume loss, with apparent partial pneumonectomy superiorly. Mediastinum: The cardiac contours are within normal limits. The aorta demonstrates calcification and tortuosity. Bones and chest wall: No suspicious bony lesions. Age-appropriate bony degenerative changes are seen. Mild levoconvex scoliotic curvature is noted. Overlying soft tissues appear unremarkable. IMPRESSION: The tip of the gastric tube is seen overlying the mid stomach. The side hole is seen just below the level of the diaphragm. Right-sided volume loss, with partial pneumonectomy. Dictated by: Alonzo Rosales M.D. on 05/07/2021 at 15:42 Approved by: Alonzo Rosales M.D. on 05/07/2021 at 15:44
--- NOTE | 2021-05-07 16:28 | SUR.PHASEI ---
Addendum entered by Alanis Brink R.N. 05/07/21 17:14: Report from Anesthesia and RN. No further airway support required. Original Note: Patient admitted to PACU after general anesthesia with Dr Boyd and Nya Rn. Patient with oral airway on 8L oxygen via simple mask. NG tube to low intertmittent suction.
--- NOTE | 2021-05-07 16:48 | SUR.PHASEI ---
1635 CXR done for NGT placement. Dr Grissom at bedside. NGT withdrawn approx 2inches. NGT to CLARIBEL
--- NOTE | 2021-05-07 17:12 | SUR.PHASEI ---
Patient transferred to room 226 in bed with this RN. SBAR report at bedside given to Bella VALDEZ. Patient transferred with silver ring in place and 3 white stones.
--- NOTE | 2021-05-07 17:19 | PC.NURSE ---
Evening shift note: Pt arrived via bed at 1705, bedside report received from Alanis VALDEZ. VSS, pt was having a hard time waking up in PACU, rouses to voice here, but quickly falls back to sleep. Fuad drain has Serisanguinous output, 130 was emptied prior to bringing pt up from PACU, Atkinson catheter in place draining scant clear, yellow urine. Midline dressing to abd with scant drainage on the dressing. Bed low and locked, alarm on for safety, will continue to monitor.
[2021-05-07 17:56] LABS: Alanine Aminotransferase 25 IU/L (<35); Albumin 2.9 g/dL (3.5-5.0); Alkaline Phosphatase 43 U/L (38-126); Aspartate Aminotransferase 47 IU/L (14-36); BUN Creatinine Ratio 16.3 (6-22); Bilirubin Total 0.3 mg/dL (0.2-1.3); Blood Urea Nitrogen 60 mg/dL (7-17); Calcium 8.4 mg/dL (8.4-10.2); Carbon Dioxide 25 mmol/L (22-32); Chloride 105 mmol/L (98-107); Estimated Glomerular Filt Rate 12.8 mL/min (>60); Globulin 2.8 g/dL (1.7-4.1); Glucose 118 mg/dL (70-100); HEMOLYSIS < 15 (0-50); Potassium 3.8 mmol/L (3.4-5.1); Sodium 139 mmol/L (137-145); Total Protein 5.7 g/dL (6.3-8.2)
[2021-05-07 17:57] LABS: Hematocrit 40.2 % (36-46); Hemoglobin 13.3 g/dL (12.0-16.0); Mean Corpuscular Hemoglobin 28.6 PG (26-34); Mean Corpuscular Volume 86.4 fL (80-100); Platelet Count 213 X10^3/uL (150-400); Red Blood Cell Count 4.65 X10^6/uL (4.0-5.2); Red Cell Distribution Width 13.6 % (11.6-14.8); White Blood Cell Count 5.9 X10^3/uL (4.5-11.0)
[2021-05-07 17:58] LABS: Add Manual Diff / Slide Review YES
[2021-05-07 18:43] LABS: Neutrophils Absolute Manual 4720 /uL (3000-5900); RBC Morphology Normal Morphology; Total Cells Counted 100
--- NOTE | 2021-05-07 21:22 | P.ICUMDRN_ITS ---
- Date Patient Seen: 05/07/21 Time Patient Seen: 21:23 :: This patient was seen via real time interactive two-way audiovisual telecommunication. Note: Admitted during day shift. POD #0 from exploratory laparotomy with lysis of adhesions, small-bowel resection, hysterectomy; also with PARVIN of 3.4-3.6. On cefazolin prophylaxis. CAMERA: Sinus tachycardia @ 110 Sleeping NGT to LWS LR 150 mL/hr Orders, labs reviewed. Continue management as per general surgery/BUSINESS SUPPORT ASSOCIATE/hospitalist; discussed with RN and RT.
[2021-05-07] MEDS: METOPROLOL TARTRATE 5 MG/5 ML INJ IV (23:21)
[2021-05-08] VITALS (15 sets, daily range): BP systolic 114–162; BP diastolic 66–85; PULSE 78–113; RESP 9–21; TEMP 36.6–37.3; O2SAT 93–95
[2021-05-08] MEDS: HYDROMORPHONE 1 MG INJ IV ×2 (03:15→08:39)
[2021-05-08] MEDS: ACETAMINOPHEN SUSP 650 MG/20.3 ML UDC TUBE ×2 (05:25→23:02)
[2021-05-08 05:28] LABS: BUN Creatinine Ratio 17.4 (6-22); Blood Urea Nitrogen 64 mg/dL (7-17); Calcium 7.9 mg/dL (8.4-10.2); Carbon Dioxide 27 mmol/L (22-32); Chloride 107 mmol/L (98-107); Estimated Glomerular Filt Rate 12.8 mL/min (>60); Glucose 113 mg/dL (70-100); HEMOLYSIS < 15 (0-50); Magnesium 2.3 mg/dL (1.6-2.3); Potassium 3.7 mmol/L (3.4-5.1); Sodium 139 mmol/L (137-145)
[2021-05-08 05:33] LABS: Hematocrit 31.6 % (36-46); Hemoglobin 10.5 g/dL (12.0-16.0); Mean Corpuscular HGB Conc 33.4 % (30-36); Mean Corpuscular Hemoglobin 28.9 PG (26-34); Mean Corpuscular Volume 86.7 fL (80-100); Platelet Count 187 X10^3/uL (150-400); Red Blood Cell Count 3.64 X10^6/uL (4.0-5.2); Red Cell Distribution Width 13.3 % (11.6-14.8); White Blood Cell Count 6.7 X10^3/uL (4.5-11.0)
[2021-05-08 05:37] LABS: Add Manual Diff / Slide Review YES
[2021-05-08 05:59] LABS: Neutrophils Absolute Manual 5829 /uL (3000-5900); Total Cells Counted 100
[2021-05-08 06:00] LABS: RBC Morphology Normal Morphology
[2021-05-08] MEDS: SODIUM CHLORIDE 0.9% FLUSH 10 ML IV (08:38)
[2021-05-08] MEDS: PANTOPRAZOLE 40 MG VIAL IV (08:38)
[2021-05-08] MEDS: GABAPENTIN 300 MG CAPSULE PO ×2 (08:38→20:12)
[2021-05-08] MEDS: LACTATED RINGERS 1,000 ML 150 ML IV (08:39)
[2021-05-08] MEDS: FUROSEMIDE 20 MG/2 ML VIAL IV (09:26)
--- NOTE | 2021-05-08 11:10 | PM.PN.1 ---
Subjective Subjective Date Patient Seen: 05/08/21 Time Patient Seen: 11:10 Interval history: No event over night. Persistent tachycardia. Patient has several questions, denies pain or nausea. c/o dry throat Exam Vital Signs (past 8 hours): - 05/08/21 04:00 05/08/21 05:00 05/08/21 06:00 Temperature 97.9 F Pulse Rate 103 H 113 H 100 H Respiratory Rate 13 9 L 13 Blood Pressure 116/66 120/79 Pulse Oximetry 94 95 93 05/08/21 08:00 05/08/21 08:01 Temperature 99.0 F Pulse Rate 108 H Respiratory Rate 21 Blood Pressure 127/78 Pulse Oximetry 95 94 Oxygen Delivery Method Room Air Oxygen Flow Rate 0 Const General: anxious Nutritional Appearance: thin Orientation: alert and oriented x3 Resp Effort & Inspection: normal respiratory effort and able to speak in complete sentences Cardio Rate: tachycardic Rhythm: regular rhythm GI Palpation: soft and tender (incision tenderness, mild distended. Dressing dry and intact. drain ) Skin Other: wound dry and intact. Psych Appearance: grossly normal Mood: irritable mood Judgment: fair Objective Labs Result Diagrams: 05/08/21 05:03 05/08/21 05:03 Labs: Laboratory Results - last 24 hr 05/07/21 05/07/21 05/07/21 17:09 17:36 17:36 WBC 5.9 D RBC 4.65 Hgb 13.3 Hct 40.2 MCV 86.4 MCH 28.6 MCHC 33.0 RDW 13.6 Plt Count 213 Neut % (Auto) Not Reportable Lymph % (Auto) Not Reportable [place] % (Auto) Not Reportable Eos % (Auto) Not Reportable Baso % (Auto) Not Reportable Lymph # (Auto) Not Reportable [place] # (Auto) Not Reportable Baso # (Auto) Not Reportable Total Counted 100 Seg Neutrophils % 80.0 H D Band Neutrophils % Lymphocytes % (Manual) 11.0 L Atypical Lymphs % 1.0 H Monocytes % (Manual) 8.0 Metamyelocytes % Neutrophils # (Manual) 4720 RBC Morphology Normal morphology Sodium 139 Potassium 3.8 Chloride 105 Carbon Dioxide 25 BUN 60 H Creatinine 3.69 H Estimated GFR 12.8 L BUN/Creatinine Ratio 16.3 Glucose 118 H Calcium 8.4 Magnesium Total Bilirubin 0.3 AST 47 H ALT 25 Alkaline Phosphatase 43 Total Protein 5.7 L Albumin 2.9 L Globulin 2.8 Albumin/Globulin Ratio 1.0 Nasal Screen MRSA (PCR) Positive for mrsa H 05/08/21 05/08/21 05:03 05:03 WBC 6.7 RBC 3.64 L Hgb 10.5 L Hct 31.6 L MCV 86.7 MCH 28.9 MCHC 33.4 RDW 13.3 Plt Count 187 Neut % (Auto) Not Reportable Lymph % (Auto) Not Reportable [place] % (Auto) Not Reportable Eos % (Auto) Not Reportable Baso % (Auto) Not Reportable Lymph # (Auto) Not Reportable [place] # (Auto) Not Reportable Baso # (Auto) Not Reportable Total Counted 100 Seg Neutrophils % 37.0 L D Band Neutrophils % 50.0 H Lymphocytes % (Manual) 9.0 L Atypical Lymphs % Monocytes % (Manual) 3.0 Metamyelocytes % 1.0 H Neutrophils # (Manual) 5829 RBC Morphology Normal morphology Sodium 139 Potassium 3.7 Chloride 107 Carbon Dioxide 27 BUN 64 H Creatinine 3.68 H Estimated GFR 12.8 L BUN/Creatinine Ratio 17.4 Glucose 113 H Calcium 7.9 L Magnesium 2.3 Total Bilirubin AST ALT Alkaline Phosphatase Total Protein Albumin Globulin Albumin/Globulin Ratio Nasal Screen MRSA (PCR) [facility] Medical History (Updated 05/07/21 @ 10:47 by Angy Mayen MD) Recurrent pneumothorax Small bowel obstruction Surgical History (Updated 05/05/21 @ 16:36 by Wojciech Norwood DO) History of appendectomy History of lung surgery Family History (Updated 05/05/21 @ 16:36 by Wojciech Norwood DO) Father Hypertension Mother Hypertension Social History household members: spouse Smoking Status: Never smoker alcohol intake: current (rare 0-1 drinks per week) substance use type: does not use Assessment & Plan Assessment & Plan narrative: S/p Xlap with hysterectomy and SBR. Bowel at time if surgery was ischemic which likely explains acute renal injury. Acute blood loss anemia that does not require transfusion, will consider PO iron will GI function returns. discussed with patient and that we visualized a single ovary to preserve during the surgery. The other ovary was either taken at other time or lost blood supply due to adhesions and reabsorbed. I also reminded her that she is of menapause age. Time Spent With Patient Time with patient: 50 to 69 minutes with 50% spent counseling/coordinating care Critical Care time: I spent a total of [] minutes of critical care time on this patient's care today; this time is exclusive of procedural time. Quality VTE Deep Vein Thrombosis/Pulmonary Embolism Present on Admission: No
--- NOTE | 2021-05-08 13:03 | CM.DPC ---
DCP Cont: Patient had surgery yesterday for small bowel, as well as hysterectomy secondary to fibroids on her uterus. P: DCP to continue to check in. Patient is from [place], but up here visiting her significant other, Stanley. She may need to stay with him for recovery before returning home. Isadora Velasco RN/City Marshal
--- NOTE | 2021-05-08 13:13 | PM.PNPO.1 ---
Subjective Subjective Date Patient Seen: 05/08/21 Time Patient Seen: 13:13 Interval history: Patient is a 56-year-old 1 para 0 postop day # 1 status post exploratory laparotomy with supracervical hysterectomy and bilateral salpingectomy as well as resection of terminal ileum with reanastomosis. No nausea or vomiting. Pain is well controlled. Atkinson catheter still in place. NG tube just removed due to clotting. Exam Vital Signs (past 8 hours): - 05/08/21 06:00 05/08/21 08:00 05/08/21 08:01 Temperature 99.0 F Pulse Rate 100 H 108 H Respiratory Rate 13 21 Blood Pressure 120/79 127/78 Pulse Oximetry 93 95 94 05/08/21 12:00 Temperature 97.8 F Pulse Rate 112 H Respiratory Rate 19 Blood Pressure 123/74 Pulse Oximetry 95 Oxygen Delivery Method Room Air Oxygen Flow Rate 0 Narrative Exam Narrative: Generally: Patient is sitting up in bed, conversive, no acute distress Lungs: Clear to auscultation bilaterally Cardiovascular: Regular rate and rhythm Abdomen: Slightly distended. Decreased bowel sounds. Incision: Aquacel dressing with quarter-size spot of blood towards the inferior margin. Extremities: SCDs in place Objective Labs Result Diagrams: 05/08/21 05:03 05/08/21 05:03 Labs: Laboratory Results - last 24 hr 05/07/21 05/07/21 05/07/21 17:09 17:36 17:36 WBC 5.9 D RBC 4.65 Hgb 13.3 Hct 40.2 MCV 86.4 MCH 28.6 MCHC 33.0 RDW 13.6 Plt Count 213 Neut % (Auto) Not Reportable Lymph % (Auto) Not Reportable [place] % (Auto) Not Reportable Eos % (Auto) Not Reportable Baso % (Auto) Not Reportable Lymph # (Auto) Not Reportable [place] # (Auto) Not Reportable Baso # (Auto) Not Reportable Total Counted 100 Seg Neutrophils % 80.0 H D Band Neutrophils % Lymphocytes % (Manual) 11.0 L Atypical Lymphs % 1.0 H Monocytes % (Manual) 8.0 Metamyelocytes % Neutrophils # (Manual) 4720 RBC Morphology Normal morphology Sodium 139 Potassium 3.8 Chloride 105 Carbon Dioxide 25 BUN 60 H Creatinine 3.69 H Estimated GFR 12.8 L BUN/Creatinine Ratio 16.3 Glucose 118 H Calcium 8.4 Magnesium Total Bilirubin 0.3 AST 47 H ALT 25 Alkaline Phosphatase 43 Total Protein 5.7 L Albumin 2.9 L Globulin 2.8 Albumin/Globulin Ratio 1.0 Nasal Screen MRSA (PCR) Positive for mrsa H 05/08/21 05/08/21 05:03 05:03 WBC 6.7 RBC 3.64 L Hgb 10.5 L Hct 31.6 L MCV 86.7 MCH 28.9 MCHC 33.4 RDW 13.3 Plt Count 187 Neut % (Auto) Not Reportable Lymph % (Auto) Not Reportable [place] % (Auto) Not Reportable Eos % (Auto) Not Reportable Baso % (Auto) Not Reportable Lymph # (Auto) Not Reportable [place] # (Auto) Not Reportable Baso # (Auto) Not Reportable Total Counted 100 Seg Neutrophils % 37.0 L D Band Neutrophils % 50.0 H Lymphocytes % (Manual) 9.0 L Atypical Lymphs % Monocytes % (Manual) 3.0 Metamyelocytes % 1.0 H Neutrophils # (Manual) 5829 RBC Morphology Normal morphology Sodium 139 Potassium 3.7 Chloride 107 Carbon Dioxide 27 BUN 64 H Creatinine 3.68 H Estimated GFR 12.8 L BUN/Creatinine Ratio 17.4 Glucose 113 H Calcium 7.9 L Magnesium 2.3 Total Bilirubin AST ALT Alkaline Phosphatase Total Protein Albumin Globulin Albumin/Globulin Ratio Nasal Screen MRSA (PCR) [facility] Medical History (Updated 05/07/21 @ 10:47 by Angy Mayen MD) Recurrent pneumothorax Small bowel obstruction Surgical History (Updated 05/05/21 @ 16:36 by Wojciech Norwood DO) History of appendectomy History of lung surgery Family History (Updated 05/05/21 @ 16:36 by Wojciech Norwood DO) Father Hypertension Mother Hypertension Social History household members: spouse Smoking Status: Never smoker alcohol intake: current (rare 0-1 drinks per week) substance use type: does not use Assessment & Plan Post-op Postoperative Procedures: Procedures Operation Date: 05/07/21 11:45 Actual Procedure Side Surgeon p Open small bowel resection Not Applicable Angy Mayen MD s Open Supracervical Hysterectomy and bilateral salpingectomy Not Applicable Kayley Champion MD Postoperative day: 1 Postoperative status: doing well Postoperative status narrative: Postop day # 1 status post open small-bowel obstruction and supracervical hysterectomy with bilateral salpingectomy doing fairly well except for elevated creatinine Postoperative plan narrative: Continue ice chips only Diet an drains managed by General surgery Watch urine output and creatinine Time Spent With Patient Time with patient: 15-24 minutes Quality VTE Deep Vein Thrombosis/Pulmonary Embolism Present on Admission: No
--- NOTE | 2021-05-08 15:39 | PM.PN.1 ---
Subjective Subjective Date Patient Seen: 05/08/21 Time Patient Seen: 15:39 Interval history: POD#1 s/p NYLA, SBR, and hysterectomy. Patient denies pain today, no gas or BMs. NG tube in place still. She denies nausea or vomiting, she is quite thirsty. Creatinine stable at 3.68 today. Still with good urine output. Remains on IV fluids. BP improved, but was given a dose of IV lasix. Exam Vital Signs (past 8 hours): - 05/08/21 08:00 05/08/21 08:01 05/08/21 12:00 Temperature 99.0 F 97.8 F Pulse Rate 108 H 112 H Respiratory Rate 21 19 Blood Pressure 127/78 123/74 Pulse Oximetry 95 94 95 05/08/21 15:14 Temperature 97.9 F Pulse Rate 83 Respiratory Rate 18 Blood Pressure 114/81 Pulse Oximetry 95 Oxygen Delivery Method Room Air Oxygen Flow Rate 0 Narrative Exam Narrative: GENERAL APPEARANCE: Well developed, well nourished, in no acute distress. SKIN: Inspection of the skin reveals no rashes, ulcerations or petechiae. HEENT:? Normocephalic atraumatic, extraocular muscles are intact, oropharynx is clear and mucous membranes are moist, neck is supple without adenopathy NECK: Supple and symmetric. There was no thyroid enlargement, and no tenderness, or masses were felt. CHEST: Normal AP diameter and normal contour without any kyphoscoliosis. LUNGS: Auscultation of the lungs revealed no wheezes, rhonchi, or rales. CARDIOVASCULAR: There was a tachycardic rate with regular rhythm without any murmurs, gallops, rubs. Peripheral pulses were 2+ and symmetric. ABDOMEN: Soft, non-distended, appropriately tender around midline surgical dressing which is c/d/i. MUSCULOSKELETAL: There was no tenderness or effusions noted. Muscle strength and tone were normal. EXTREMITIES: No cyanosis, clubbing or edema. NEUROLOGIC: Alert and oriented x 3 but lethargic. Strength is +5/5 in the Upper Extremities and Lower Extremities Bilaterally. Objective Labs Result Diagrams: 05/08/21 05:03 05/08/21 05:03 Labs: Laboratory Results - last 24 hr 05/07/21 05/07/21 05/07/21 17:09 17:36 17:36 WBC 5.9 D RBC 4.65 Hgb 13.3 Hct 40.2 MCV 86.4 MCH 28.6 MCHC 33.0 RDW 13.6 Plt Count 213 Neut % (Auto) Not Reportable Lymph % (Auto) Not Reportable [place] % (Auto) Not Reportable Eos % (Auto) Not Reportable Baso % (Auto) Not Reportable Lymph # (Auto) Not Reportable [place] # (Auto) Not Reportable Baso # (Auto) Not Reportable Total Counted 100 Seg Neutrophils % 80.0 H D Band Neutrophils % Lymphocytes % (Manual) 11.0 L Atypical Lymphs % 1.0 H Monocytes % (Manual) 8.0 Metamyelocytes % Neutrophils # (Manual) 4720 RBC Morphology Normal morphology Sodium 139 Potassium 3.8 Chloride 105 Carbon Dioxide 25 BUN 60 H Creatinine 3.69 H Estimated GFR 12.8 L BUN/Creatinine Ratio 16.3 Glucose 118 H Calcium 8.4 Magnesium Total Bilirubin 0.3 AST 47 H ALT 25 Alkaline Phosphatase 43 Total Protein 5.7 L Albumin 2.9 L Globulin 2.8 Albumin/Globulin Ratio 1.0 Nasal Screen MRSA (PCR) Positive for mrsa H 05/08/21 05/08/21 05:03 05:03 WBC 6.7 RBC 3.64 L Hgb 10.5 L Hct 31.6 L MCV 86.7 MCH 28.9 MCHC 33.4 RDW 13.3 Plt Count 187 Neut % (Auto) Not Reportable Lymph % (Auto) Not Reportable [place] % (Auto) Not Reportable Eos % (Auto) Not Reportable Baso % (Auto) Not Reportable Lymph # (Auto) Not Reportable [place] # (Auto) Not Reportable Baso # (Auto) Not Reportable Total Counted 100 Seg Neutrophils % 37.0 L D Band Neutrophils % 50.0 H Lymphocytes % (Manual) 9.0 L Atypical Lymphs % Monocytes % (Manual) 3.0 Metamyelocytes % 1.0 H Neutrophils # (Manual) 5829 RBC Morphology Normal morphology Sodium 139 Potassium 3.7 Chloride 107 Carbon Dioxide 27 BUN 64 H Creatinine 3.68 H Estimated GFR 12.8 L BUN/Creatinine Ratio 17.4 Glucose 113 H Calcium 7.9 L Magnesium 2.3 Total Bilirubin AST ALT Alkaline Phosphatase Total Protein Albumin Globulin Albumin/Globulin Ratio Nasal Screen MRSA (PCR) [facility] Medical History (Updated 05/07/21 @ 10:47 by Angy Mayen MD) Recurrent pneumothorax Small bowel obstruction Surgical History (Updated 05/05/21 @ 16:36 by Wojciech Norwood DO) History of appendectomy History of lung surgery Family History (Updated 05/05/21 @ 16:36 by Wojciech Norwood DO) Father Hypertension Mother Hypertension Social History household members: spouse Smoking Status: Never smoker alcohol intake: current (rare 0-1 drinks per week) substance use type: does not use Assessment & Plan Assessment & Plan narrative: 56-year-old female admitted with small-bowel obstruction, likely secondary to adhesive disease, who was noted to have very elevated blood pressures in the emergency room.? Medicine was asked for consultation. She is now POD#1 s/p NYLA, small bowel resection, and hysterectomy. Developed PARVIN likely due to fluid losses. 1. Hypertension, acute ?-suspect set at least some component secondary to pain. started on amlodipine with improvement initially. BP controlled today without amlodipine, but did receive 20 mg of IV lasix. 2. Small bowel obstruction, acute, present on admission ?- likely secondary to adhesions. General Surgery primary team, defer management at this time. ?- started on clears per surgery orders so for now can use oral medications for BP control. 3. PARVIN ?- suspect secondary to dehydration in setting of SBO and ischemic bowel. Creatinine stable to 3.69 > 3.68. ?- aggressive IV fluids, catheter placement for strict monitoring. - would avoid diuretics in the future if possible unless hypoxic or grossly volume overloaded. 4. hypokalemia, acute, present on admission ?- likely secondary to GI losses from SBO. repleted with IV. 5. Elevated glucose ?- 184 on admission labs, ordered A1c which was 5.0% Code: Full as discussed with the patient, surrogate is her fam COVID: negative. Medicine will continue to follow this patient. I have utilized all available immediate resources to obtain, update, or review the patient's current medications. Time Spent With Patient Critical Care time: I spent a total of [] minutes of critical care time on this patient's care today; this time is exclusive of procedural time. Quality VTE Deep Vein Thrombosis/Pulmonary Embolism Present on Admission: No
[2021-05-08 17:40] LABS: BUN Creatinine Ratio 19.5 (6-22); Blood Urea Nitrogen 71 mg/dL (7-17); Calcium 9.2 mg/dL (8.4-10.2); Carbon Dioxide 29 mmol/L (22-32); Chloride 106 mmol/L (98-107); Glucose 112 mg/dL (70-100); HEMOLYSIS < 15 (0-50); Potassium 3.6 mmol/L (3.4-5.1); Sodium 141 mmol/L (137-145)
[2021-05-08] MEDS: LACTATED RINGERS 1,000 ML 100 ML IV (18:49)
[2021-05-08] MEDS: OXYCODONE 5 MG/5 ML ORAL SOLUTION 10 MG PO (20:12)
--- NOTE | 2021-05-08 20:43 | PM.ICURNDS ---
- :: This patient was seen via real time interactive two-way audiovisual telecommunication. Note: Patient's BP elevated at times (SBP 110-160s) HR is 90-100s. Will start patient on metoprolol 12.5 mg PO BID. If BP still elevated there is also metoprolol 5 mg IVP prn SBP > 160.
[2021-05-08] MEDS: METOPROLOL IR 25 MG TABLET 12.5 MG PO (20:56)
[2021-05-08] MEDS: ALPRAZolam 0.25 MG TABLET 0.5 MG PO (23:02)
[2021-05-09] VITALS (9 sets, daily range): BP systolic 146–175; BP diastolic 89–102; PULSE 80–91; RESP 17–20; TEMP 36.5–37.1; O2SAT 93–97
[2021-05-09] MEDS: METOPROLOL TARTRATE 5 MG/5 ML INJ IV ×2 (03:40→10:26)
[2021-05-09] MEDS: LACTATED RINGERS 1,000 ML 100 ML IV ×3 (03:40→23:46)
[2021-05-09] MEDS: HYDROMORPHONE 1 MG INJ IV (03:50)
[2021-05-09] MEDS: ACETAMINOPHEN SUSP 650 MG/20.3 ML UDC TUBE ×3 (05:07→18:34)
[2021-05-09 05:31] LABS: BUN Creatinine Ratio 23.2 (6-22); Blood Urea Nitrogen 64 mg/dL (7-17); Calcium 8.4 mg/dL (8.4-10.2); Carbon Dioxide 31 mmol/L (22-32); Chloride 109 mmol/L (98-107); Estimated Glomerular Filt Rate 17.9 mL/min (>60); Glucose 111 mg/dL (70-100); HEMOLYSIS < 15 (0-50); Magnesium 2.9 mg/dL (1.6-2.3); Potassium 3.5 mmol/L (3.4-5.1); Sodium 142 mmol/L (137-145)
[2021-05-09 05:34] LABS: Hematocrit 27.8 % (36-46); Hemoglobin 9.1 g/dL (12.0-16.0); Mean Corpuscular HGB Conc 32.6 % (30-36); Mean Corpuscular Hemoglobin 28.1 PG (26-34); Mean Corpuscular Volume 86.1 fL (80-100); Platelet Count 204 X10^3/uL (150-400); Red Blood Cell Count 3.23 X10^6/uL (4.0-5.2); Red Cell Distribution Width 13.4 % (11.6-14.8); White Blood Cell Count 9.9 X10^3/uL (4.5-11.0)
[2021-05-09 05:36] LABS: Add Manual Diff / Slide Review YES
[2021-05-09 05:52] LABS: Neutrophils Absolute Manual 8118 /uL (3000-5900); Total Cells Counted 100
[2021-05-09 06:02] LABS: RBC Morphology Normal Morphology
[2021-05-09 06:04] LABS: Dohle Bodies 1+
[2021-05-09] MEDS: METOPROLOL IR 25 MG TABLET 12.5 MG PO ×2 (08:47→20:51)
[2021-05-09] MEDS: GABAPENTIN 300 MG CAPSULE PO ×2 (08:47→20:51)
[2021-05-09] MEDS: PANTOPRAZOLE 40 MG VIAL IV (08:48)
[2021-05-09] MEDS: SODIUM CHLORIDE 0.9% FLUSH 10 ML IV (08:49)
--- NOTE | 2021-05-09 10:07 | P.PN_ITS ---
Subjective Subjective Date Patient Seen: 05/09/21 Time Patient Seen: 10:07 Interval history: POD#2 s/p NYLA, SBR, and hysterectomy. Patient denies pain today, no gas or BMs. NG tube removed. She denies nausea or vomiting, she is quite thirsty. creatinine starting to improve today to 2.76. Still with good urine output. Remains on IV fluids. BP rising again this AM. Given dose of IV metoprolol x1. If tolerating oral intake restart amlodipine 5 mg. Exam Vital Signs (past 8 hours): - 05/09/21 03:39 05/09/21 04:07 05/09/21 08:00 Temperature 98.5 F 97.9 F Pulse Rate 84 91 H Respiratory Rate 18 20 Blood Pressure 158/91 H 146/89 H 167/102 H Pulse Oximetry 93 94 Oxygen Delivery Method Room Air Oxygen Flow Rate 0 Narrative Exam Narrative: GENERAL APPEARANCE: Well developed, well nourished, in no acute distress. SKIN: Inspection of the skin reveals no rashes, ulcerations or petechiae. HEENT:? Normocephalic atraumatic, extraocular muscles are intact, oropharynx is clear and mucous membranes are moist, neck is supple without adenopathy NECK: Supple and symmetric. There was no thyroid enlargement, and no tenderness, or masses were felt. CHEST: Normal AP diameter and normal contour without any kyphoscoliosis. LUNGS: Auscultation of the lungs revealed no wheezes, rhonchi, or rales. CARDIOVASCULAR: There was a tachycardic rate with regular rhythm without any murmurs, gallops, rubs. Peripheral pulses were 2+ and symmetric. ABDOMEN: Soft, non-distended, non-tender. midline surgical dressing is c/d/i. JOSEP drain with sanguinous output, minimal MUSCULOSKELETAL: There was no tenderness or effusions noted. Muscle strength and tone were normal. EXTREMITIES: No cyanosis, clubbing or edema. NEUROLOGIC: Alert and oriented x 3 but lethargic. Strength is +5/5 in the Upper Extremities and Lower Extremities Bilaterally. Objective Labs Result Diagrams: 05/09/21 05:03 05/09/21 05:03 Labs: Laboratory Results - last 24 hr 05/08/21 05/09/21 05/09/21 17:20 05:03 05:03 WBC 9.9 RBC 3.23 L Hgb 9.1 L Hct 27.8 L MCV 86.1 MCH 28.1 MCHC 32.6 RDW 13.4 Plt Count 204 Neut % (Auto) Not Reportable Lymph % (Auto) Not Reportable [place] % (Auto) Not Reportable Eos % (Auto) Not Reportable Baso % (Auto) Not Reportable Lymph # (Auto) Not Reportable [place] # (Auto) Not Reportable Baso # (Auto) Not Reportable Total Counted 100 Seg Neutrophils % 72.0 H D Band Neutrophils % 10.0 H Lymphocytes % (Manual) 7.0 L Monocytes % (Manual) 7.0 Metamyelocytes % 2.0 H Myelocytes % 2.0 H Neutrophils # (Manual) 8118 H Dohle Bodies 1+ H RBC Morphology Normal morphology Sodium 141 142 Potassium 3.6 3.5 Chloride 106 109 H Carbon Dioxide 29 31 BUN 71 H 64 H Creatinine 3.64 H 2.76 H Estimated GFR 13.0 L 17.9 L BUN/Creatinine Ratio 19.5 23.2 H Glucose 112 H 111 H Calcium 9.2 8.4 Magnesium 2.9 H PFSH Medical History (Updated 05/07/21 @ 10:47 by Angy Mayen MD) Recurrent pneumothorax Small bowel obstruction Surgical History (Updated 05/05/21 @ 16:36 by Wojciech Norwood DO) History of appendectomy History of lung surgery Family History (Updated 05/05/21 @ 16:36 by Wojciech Norwood DO) Father Hypertension Mother Hypertension Social History household members: spouse Smoking Status: Never smoker alcohol intake: current (rare 0-1 drinks per week) substance use type: does not use Assessment & Plan Assessment & Plan narrative: 56-year-old female admitted with small-bowel obstruction, likely secondary to adhesive disease, who was noted to have very elevated blood pressures in the emergency room.? Medicine was asked for consultation. She is now POD#2 s/p NYLA, small bowel resection, and hysterectomy. Developed PARVIN likely due to fluid losses. 1. Hypertension, acute ?-suspect set at least some component secondary to pain. started on amlodipine with improvement initially. Restart amlodipine when diet resumes at 5 mg daily. may need to uptitrate. metoprolol IV today. 2. Small bowel obstruction, acute, present on admission ?- likely secondary to adhesions. General Surgery primary team, defer management at this time. ?- when resuming clears start oral BP medications as noted above. 3. PARVIN ?- suspect secondary to dehydration in setting of SBO and ischemic bowel. Creatinine improved from peak of 3.69 to now 2.76 today ?- continue IV fluids today. Atkinson can be removed from medical perspective. - would avoid diuretics in the future if possible unless hypoxic or grossly volume overloaded. 4. hypokalemia, acute, present on admission ?- likely secondary to GI losses from SBO. repleted with IV. 5. Elevated glucose ?- 184 on admission labs, ordered A1c which was 5.0% Code: Full as discussed with the patient, surrogate is her fam COVID: negative. Medicine will continue to follow this patient. Time Spent With Patient Critical Care time: I spent a total of [] minutes of critical care time on this patient's care today; this time is exclusive of procedural time. Quality VTE Deep Vein Thrombosis/Pulmonary Embolism Present on Admission: No
--- NOTE | 2021-05-09 10:31 | P.PN_ITS ---
Subjective Subjective Date Patient Seen: 05/09/21 Time Patient Seen: 10:31 Interval history: sleeping Exam Vital Signs (past 8 hours): - 05/09/21 03:39 05/09/21 04:07 05/09/21 08:00 Temperature 98.5 F 97.9 F Pulse Rate 84 91 H Respiratory Rate 18 20 Blood Pressure 158/91 H 146/89 H 167/102 H Pulse Oximetry 93 94 Oxygen Delivery Method Room Air Oxygen Flow Rate 0 Narrative Exam Narrative: No flatus or BM per staff, no events overnight Const General: comfortable Resp Effort & Inspection: normal respiratory effort and able to speak in complete sentences Cardio Rate: regular rate Rhythm: regular rhythm GI Other: Abd is soft, and slightly distended. Objective Labs Result Diagrams: 05/09/21 05:03 05/09/21 05:03 Labs: Laboratory Results - last 24 hr 05/08/21 05/09/21 05/09/21 17:20 05:03 05:03 WBC 9.9 RBC 3.23 L Hgb 9.1 L Hct 27.8 L MCV 86.1 MCH 28.1 MCHC 32.6 RDW 13.4 Plt Count 204 Neut % (Auto) Not Reportable Lymph % (Auto) Not Reportable [place] % (Auto) Not Reportable Eos % (Auto) Not Reportable Baso % (Auto) Not Reportable Lymph # (Auto) Not Reportable [place] # (Auto) Not Reportable Baso # (Auto) Not Reportable Total Counted 100 Seg Neutrophils % 72.0 H D Band Neutrophils % 10.0 H Lymphocytes % (Manual) 7.0 L Monocytes % (Manual) 7.0 Metamyelocytes % 2.0 H Myelocytes % 2.0 H Neutrophils # (Manual) 8118 H Dohle Bodies 1+ H RBC Morphology Normal morphology Sodium 141 142 Potassium 3.6 3.5 Chloride 106 109 H Carbon Dioxide 29 31 BUN 71 H 64 H Creatinine 3.64 H 2.76 H Estimated GFR 13.0 L 17.9 L BUN/Creatinine Ratio 19.5 23.2 H Glucose 112 H 111 H Calcium 9.2 8.4 Magnesium 2.9 H PFSH Medical History (Updated 05/07/21 @ 10:47 by Angy Mayen MD) Recurrent pneumothorax Small bowel obstruction Surgical History (Updated 05/05/21 @ 16:36 by Wojciech Norwood DO) History of appendectomy History of lung surgery Family History (Updated 05/05/21 @ 16:36 by Wojciech Norwood DO) Father Hypertension Mother Hypertension Social History household members: spouse Smoking Status: Never smoker alcohol intake: current (rare 0-1 drinks per week) substance use type: does not use Assessment & Plan Assessment & Plan narrative: s/p Xlap with SBR, NYLA, hysterectomy POD#2 Renal injury resolving HTN and tachycardia responding to treatment of hydration, pain control and meds (per medical hosptialist.) Nutrition: await return of bowel function no additional intervention beyond Banana bag. Time Spent With Patient Time with patient: less than 30 minutes Critical Care time: I spent a total of [] minutes of critical care time on this patient's care today; this time is exclusive of procedural time. Quality VTE Deep Vein Thrombosis/Pulmonary Embolism Present on Admission: No
--- NOTE | 2021-05-09 11:21 | CM.DPC ---
Addendum entered by Isadora Velasco R.N. 05/09/21 15:26: Was going to check in with patient today, but she is sleeping at this time. Original Note: DCP Cont: Discussed patient during team rounds, as hospitalist is consulting for HTN, as well as PARVIN, which indicated, has improved. Plan for discharge could possibly be or Saturday. P: DCP to continue to follow. Patient should be able to go home when stable, in this case, she may be staying with her partner here in [facility] before returning to [place]. Isadora Velasco RN/Center Receptionist
--- NOTE | 2021-05-09 18:35 | PM.PNPO.1 ---
Subjective Subjective Date Patient Seen: 05/09/21 Time Patient Seen: 18:35 Interval history: Patient is a 56-year-old 1 para 0 postop day # 2 status post ex lap with resection of the terminal ileum and supracervical hysterectomy with bilateral salpingectomy. Her Atkinson catheter is out and she has been voiding without catheter. JOSEP is draining serosanguineous fluid. 140 cc over the last shift. Patient is burping but no flatus. Patient taking ice chips. Exam Vital Signs (past 8 hours): - 05/09/21 12:00 05/09/21 16:09 05/09/21 18:00 Temperature 97.7 F 97.9 F Pulse Rate 88 82 Respiratory Rate 17 18 Blood Pressure 161/90 H 175/98 H Pulse Oximetry 95 96 97 Oxygen Delivery Method Room Air Oxygen Flow Rate 0 Narrative Exam Narrative: Generally: Patient is sitting up in bed, no acute distress Lungs: Clear to auscultation bilaterally Cardiovascular: Regular rate and rhythm Abdomen: Soft, slightly distended. Decreased bowel sounds. Incision: Small quarter-size area towards the lower edge of the incision with old blood. Extremities: SCDs in place Objective Labs Result Diagrams: 05/09/21 05:03 05/09/21 05:03 Labs: Laboratory Results - last 24 hr 05/09/21 05/09/21 05:03 05:03 WBC 9.9 RBC 3.23 L Hgb 9.1 L Hct 27.8 L MCV 86.1 MCH 28.1 MCHC 32.6 RDW 13.4 Plt Count 204 Neut % (Auto) Not Reportable Lymph % (Auto) Not Reportable [place] % (Auto) Not Reportable Eos % (Auto) Not Reportable Baso % (Auto) Not Reportable Lymph # (Auto) Not Reportable [place] # (Auto) Not Reportable Baso # (Auto) Not Reportable Total Counted 100 Seg Neutrophils % 72.0 H D Band Neutrophils % 10.0 H Lymphocytes % (Manual) 7.0 L Monocytes % (Manual) 7.0 Metamyelocytes % 2.0 H Myelocytes % 2.0 H Neutrophils # (Manual) 8118 H Dohle Bodies 1+ H RBC Morphology Normal morphology Sodium 142 Potassium 3.5 Chloride 109 H Carbon Dioxide 31 BUN 64 H Creatinine 2.76 H Estimated GFR 17.9 L BUN/Creatinine Ratio 23.2 H Glucose 111 H Calcium 8.4 Magnesium 2.9 H PFS Medical History (Updated 05/07/21 @ 10:47 by Angy Mayen MD) Recurrent pneumothorax Small bowel obstruction Surgical History (Updated 05/05/21 @ 16:36 by Wojciech Norwood DO) History of appendectomy History of lung surgery Family History (Updated 05/05/21 @ 16:36 by Wojciech Norwood DO) Father Hypertension Mother Hypertension Social History household members: spouse Smoking Status: Never smoker alcohol intake: current (rare 0-1 drinks per week) substance use type: does not use Assessment & Plan Post-op Postoperative Procedures: Procedures Operation Date: 05/07/21 11:45 Actual Procedure Side Surgeon p Open small bowel resection Not Applicable Angy Mayen MD s Open Supracervical Hysterectomy and bilateral salpingectomy Not Applicable Kayley Champion MD Postoperative day: 2 Postoperative status narrative: Patient doing fairly well except for return of bowel function Postoperative plan: ambulate Postoperative plan narrative: JOSEP drain removal per General surgery Diet advancement per General surgery Time Spent With Patient Time with patient: 15-24 minutes Quality VTE Deep Vein Thrombosis/Pulmonary Embolism Present on Admission: No
--- NOTE | 2021-05-09 18:45 | PC.NURSE ---
Evening shift note Pt ambulated with SO around the unit 3 times, VSS, no distress, has urinated since tinsley was removed during day shift, urine clear yellow, JOSEP draining serisanginous fluid, no further needs at this time, will continue to monitor.
[2021-05-09] MEDS: OXYCODONE 5 MG/5 ML ORAL SOLUTION 10 MG PO (20:51)
[2021-05-09] MEDS: ALPRAZolam 0.25 MG TABLET 0.5 MG PO (20:51)
[2021-05-10] VITALS (9 sets, daily range): BP systolic 154–192; BP diastolic 92–106; PULSE 80–100; RESP 17–20; TEMP 36.4–37.3; O2SAT 94–97
[2021-05-10] MEDS: ACETAMINOPHEN SUSP 650 MG/20.3 ML UDC TUBE ×4 (00:58→23:40)
[2021-05-10 08:37] LABS: BUN Creatinine Ratio 24.6 (6-22); Blood Urea Nitrogen 44 mg/dL (7-17); Calcium 8.8 mg/dL (8.4-10.2); Carbon Dioxide 33 mmol/L (22-32); Chloride 108 mmol/L (98-107); Estimated Glomerular Filt Rate 29.5 mL/min (>60); Glucose 105 mg/dL (70-100); HEMOLYSIS < 15 (0-50); Potassium 3.4 mmol/L (3.4-5.1); Sodium 143 mmol/L (137-145)
--- NOTE | 2021-05-10 08:52 | DI.RAD.S_ITS ---
PROCEDURE: XR CHEST 1V INDICATIONS: Cough TECHNIQUE: One view of the chest was acquired. COMPARISON: [facility], CR, XR CHEST 1V, 05/07/2021, 16:26. FINDINGS: Surgical changes and devices: None. Lungs and pleura: There is a masslike opacity in the right lung adjacent to the right hilum, measuring approximately 2 2 centimeters. No pleural effusions or pneumothorax. Mediastinum: Mediastinal contours appear normal. Heart size is normal. Bones and chest wall: No suspicious bony lesions. Overlying soft tissues appear unremarkable. IMPRESSION: Approximately 2 centimeter right lung masslike opacity. CT chest with IV contrast recommended. Dictated by: Erick Jiménez M.D. on 05/10/2021 at 9:41 Approved by: Erick Jiménez M.D. on 05/10/2021 at 9:41
[2021-05-10] MEDS: METOPROLOL IR 25 MG TABLET 12.5 MG PO (09:18)
[2021-05-10] MEDS: PANTOPRAZOLE 40 MG VIAL IV (09:18)
[2021-05-10] MEDS: GABAPENTIN 300 MG CAPSULE PO ×3 (09:18→20:59)
[2021-05-10] MEDS: SODIUM CHLORIDE 0.9% FLUSH 10 ML IV (09:18)
[2021-05-10] MEDS: LACTATED RINGERS 1,000 ML 100 ML IV (11:54)
[2021-05-10] MEDS: HYDRALAZINE 20 MG/ML VIAL 5 MG IV ×2 (11:54→14:11)
--- NOTE | 2021-05-10 12:55 | P.PN_ITS ---
Subjective Subjective Date Patient Seen: 05/10/21 Time Patient Seen: 08:00 Interval history: Today she states she is feeling better. More energy. No abdominal pain currently. Urinating well. Not passing gas, and no bowel movement. Exam Vital Signs (past 8 hours): - 05/10/21 08:00 05/10/21 12:00 Temperature 97.6 F 99.1 F Pulse Rate 98 H 88 Respiratory Rate 17 19 Blood Pressure 175/92 H 183/106 H Pulse Oximetry 94 97 Oxygen Delivery Method Room Air Oxygen Flow Rate 0 Narrative Exam Narrative: GENERAL APPEARANCE: no acute distress. LUNGS: clear bilaterally with no wheezes, rhonchi, or rales. CARDIOVASCULAR: regular rate and rhythm with no murmurs ABDOMEN: Soft, non-distended, non-tender. midline surgical dressing is c/d/i. JOSEP drain with sanguinous output, minimal EXTREMITIES: No cyanosis, clubbing or edema. NEUROLOGIC: Alert and oriented x 3 Objective Labs Result Diagrams: 05/09/21 05:03 05/10/21 08:08 Labs: Laboratory Results - last 24 hr 05/10/21 08:08 Sodium 143 Potassium 3.4 Chloride 108 H Carbon Dioxide 33 H BUN 44 H Creatinine 1.79 H Estimated GFR 29.5 L BUN/Creatinine Ratio 24.6 H Glucose 105 H Calcium 8.8 PFSH Medical History (Updated 05/07/21 @ 10:47 by Angy Mayen MD) Recurrent pneumothorax Small bowel obstruction Surgical History (Updated 05/05/21 @ 16:36 by Wojciech Norwood DO) History of appendectomy History of lung surgery Family History (Updated 05/05/21 @ 16:36 by Wojciech Norwood DO) Father Hypertension Mother Hypertension Social History household members: spouse Smoking Status: Never smoker alcohol intake: current (rare 0-1 drinks per week) substance use type: does not use Assessment & Plan Assessment & Plan narrative: 56-year-old female admitted with small-bowel obstruction, likely secondary to adhesive disease, who was noted to have very elevated blood pressures in the emergency room.? Medicine was asked for consultation. She is now POD#1 s/p NYLA, small bowel resection, and hysterectomy. Developed PARVIN likely due to hypovolemia 1. Hypertension, acute -suspect set at least some component secondary to pain. started on amlodipine with improvement initially. BP controlled today without amlodipine, but did receive 20 mg of IV lasix. -still NPO, will order IV hydralazine for now while unable to take oral meds 2. Small bowel obstruction, acute, present on admission ?- likely secondary to adhesions. general surgery following and managing 3. PARVIN - suspect secondary to dehydration in setting of SBO and ischemic bowel. Creatinine 3.69 now improved to 1.7. - aggressive IV fluids, catheter placement for strict monitoring. - would avoid diuretics in the future if possible unless hypoxic or grossly vol ume overloaded. 4. hypokalemia, acute, present on admission ?- likely secondary to GI losses from SBO. repleted with IV. 5. Elevated glucose ?- 184 on admission labs, ordered A1c which was 5.0% Code: Full as discussed with the patient, surrogate is her fam COVID: negative. Medicine will continue to follow this patient. I have utilized all available immediate resources to obtain, update, or review the patient's current medications. Time Spent With Patient Critical Care time: I spent a total of [] minutes of critical care time on this patient's care today; this time is exclusive of procedural time. Quality VTE Deep Vein Thrombosis/Pulmonary Embolism Present on Admission: No
--- NOTE | 2021-05-10 13:44 | PM.PN.1 ---
Subjective Subjective Date Patient Seen: 05/10/21 Time Patient Seen: 13:44 Exam Vital Signs (past 8 hours): - 05/10/21 08:00 05/10/21 12:00 05/10/21 13:12 Temperature 97.6 F 99.1 F Pulse Rate 98 H 88 81 Respiratory Rate 17 19 Blood Pressure 175/92 H 183/106 H 192/106 H Pulse Oximetry 94 97 Oxygen Delivery Method Room Air Oxygen Flow Rate 0 Narrative Exam Narrative: States that she is feeling better, hungry. No flatus yet Const General: cooperative, healthy appearing and comfortable Orientation: alert and awake Resp Effort & Inspection: normal respiratory effort Auscultation: clear to auscultation bilaterally Cardio Rate: regular rate Rhythm: regular rhythm GI Inspection: normal to inspection, distended (mildly) and incision (C+D) Palpation: soft Skin General: dry skin and warm Neuro General: patient alert Cognition: normal cognition Speech: speech normal Extrem General: normal to inspection Psych Appearance: grossly normal Mental Status: mental status grossly normal Affect: normal affect Attitude: cooperative Thought Process: normal Thought Content: normal Judgment: judgment good Objective Labs Result Diagrams: 05/09/21 05:03 05/10/21 08:08 Labs: Laboratory Results - last 24 hr 05/10/21 08:08 Sodium 143 Potassium 3.4 Chloride 108 H Carbon Dioxide 33 H BUN 44 H Creatinine 1.79 H Estimated GFR 29.5 L BUN/Creatinine Ratio 24.6 H Glucose 105 H Calcium 8.8 PFSH Medical History (Updated 05/07/21 @ 10:47 by Angy Mayen MD) Recurrent pneumothorax Small bowel obstruction Surgical History (Updated 05/05/21 @ 16:36 by Wojciech Norwood DO) History of appendectomy History of lung surgery Family History (Updated 05/05/21 @ 16:36 by Wojciech Norwood DO) Father Hypertension Mother Hypertension Social History household members: spouse Smoking Status: Never smoker alcohol intake: current (rare 0-1 drinks per week) substance use type: does not use Assessment & Plan Assessment & Plan narrative: POD# 3 - Laparotomy with small bowel resection, hysterectomy. Doing well, awaiting normal bowel function Time Spent With Patient Time with patient: less than 30 minutes Critical Care time: I spent a total of [] minutes of critical care time on this patient's care today; this time is exclusive of procedural time. Quality VTE Deep Vein Thrombosis/Pulmonary Embolism Present on Admission: No
--- NOTE | 2021-05-10 14:52 | DIET.CONS2 ---
Dietary Inpatient Consultation Note Admission Date: 05/05/2021 15:01 RD Screening triggered by LOS day 5. Pt is s/p hysterectomy and small bowel resection. Pt with BMI 19.6 and remains NPO secondary to no return of bowel function. Per surgery team, will consider TPN tomorrow if no progress made. Pt is hungry and has been ambulating [facility]. Diet: 05/08/21 11:08 NPO Diet Diet Modifications: NPO Type: NPO except for Ice Chips Nutrition Percent Meal Consumed NPO 05/09/21 12:00 Percent Meal Consumed NPO 05/09/21 08:00 Electronically Signed by: Jess Srivastava 05/10/21 14:52 Clinical Dietitian [address] [address]
[2021-05-10] MEDS: HYDROMORPHONE 1 MG INJ IV ×2 (16:23→21:05)
--- NOTE | 2021-05-10 16:47 | PC.NURSE ---
Evening SHift Note- Fuad drain no longer holding suction. Called button attaching machine operator surgeon Dr. Tirado. Received order to remove drain at this time.
--- NOTE | 2021-05-10 19:28 | PM.PNPO.1 ---
Subjective Subjective Date Patient Seen: 05/10/21 Time Patient Seen: 13:30 Interval history: Patient is a 56-year-old 1 para 0 postop day # 3 from exploratory laparotomy with partial small bowel resection and supracervical hysterectomy with bilateral salpingectomy. 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 Patient has not passed flatus. She is feeling hungry. She is voiding without catheter. She is ambulating without assistance. Her pain is well controlled. Exam Vital Signs (past 8 hours): - 05/10/21 12:00 05/10/21 13:12 05/10/21 14:11 Temperature 99.1 F Pulse Rate 88 81 81 Respiratory Rate 19 Blood Pressure 183/106 H 192/106 H 192/106 H Pulse Oximetry 97 05/10/21 15:15 05/10/21 15:28 Temperature 98.7 F Pulse Rate 100 H 100 H Respiratory Rate 20 Blood Pressure 154/93 H 154/93 H Pulse Oximetry 97 Oxygen Delivery Method Room Air Oxygen Flow Rate 0 Narrative Exam Narrative: Generally: Patient is sitting up in bed, no acute distress Lungs: Clear to auscultation bilaterally Cardiovascular: Regular rate and rhythm Abdomen: Is soft, slightly distended. Decreased bowel sounds throughout. Incision: Clean dry and intact with Aquacel dressing Extremities: SCDs in place Objective Labs Result Diagrams: 05/09/21 05:03 05/10/21 08:08 Labs: Laboratory Results - last 24 hr 05/10/21 08:08 Sodium 143 Potassium 3.4 Chloride 108 H Carbon Dioxide 33 H BUN 44 H Creatinine 1.79 H Estimated GFR 29.5 L BUN/Creatinine Ratio 24.6 H Glucose 105 H Calcium 8.8 PFSH Medical History (Updated 05/07/21 @ 10:47 by Angy Mayen MD) Recurrent pneumothorax Small bowel obstruction Surgical History (Updated 05/05/21 @ 16:36 by Wojciech Norwood DO) History of appendectomy History of lung surgery Family History (Updated 05/05/21 @ 16:36 by Wojciech Norwood DO) Father Hypertension Mother Hypertension Social History household members: spouse Smoking Status: Never smoker alcohol intake: current (rare 0-1 drinks per week) substance use type: does not use Assessment & Plan Post-op Postoperative Procedures: Procedures Operation Date: 05/07/21 11:45 Actual Procedure Side Surgeon p Open small bowel resection Not Applicable Angy Mayen MD s Open Supracervical Hysterectomy and bilateral salpingectomy Not Applicable Kayley Champion MD Postoperative day: 3 Postoperative status narrative: Slow return of bowel function Postoperative plan narrative: Diet advancement per General surgery JOSEP management per general surgeon Time Spent With Patient Time with patient: 15-24 minutes Quality VTE Deep Vein Thrombosis/Pulmonary Embolism Present on Admission: No
[2021-05-10] MEDS: METOPROLOL IR 25 MG TABLET PO (21:14)
--- NOTE | 2021-05-10 22:07 | PC.NURSE ---
using sterile procedure drain was removed and aquacel dressing was changed at 2200. incision intact w/steri strips.
[2021-05-11] VITALS (9 sets, daily range): BP systolic 162–179; BP diastolic 91–98; PULSE 83–101; RESP 16–20; TEMP 36.8–37.6; O2SAT 95–99
[2021-05-11 04:55] LABS: Hematocrit 29.1 % (36-46); Hemoglobin 9.4 g/dL (12.0-16.0); Mean Corpuscular HGB Conc 32.4 % (30-36); Mean Corpuscular Volume 86.5 fL (80-100); Platelet Count 230 X10^3/uL (150-400); Red Blood Cell Count 3.36 X10^6/uL (4.0-5.2); Red Cell Distribution Width 13.7 % (11.6-14.8); White Blood Cell Count 12.8 X10^3/uL (4.5-11.0)
[2021-05-11 05:05] LABS: BUN Creatinine Ratio 25.4 (6-22); Blood Urea Nitrogen 33 mg/dL (7-17); Calcium 8.3 mg/dL (8.4-10.2); Carbon Dioxide 31 mmol/L (22-32); Chloride 108 mmol/L (98-107); Estimated Glomerular Filt Rate 42.7 mL/min (>60); Glucose 97 mg/dL (70-100); HEMOLYSIS < 15 (0-50); Potassium 3.3 mmol/L (3.4-5.1); Sodium 142 mmol/L (137-145)
--- NOTE | 2021-05-11 08:30 | DI.CT.S_ITS ---
PROCEDURE: CT CHEST WO CON INDICATIONS: abnormal xray, no IV contrast due to PARVIN TECHNIQUE: Noncontrast 5 mm thick sections acquired from the pulmonary apices to the posterior costophrenic angles. 1 mm lung window, 5 mm thick coronal and sagittal and 7 mm axial MIP reformats were then acquired. For radiation dose reduction, the following was used: automated exposure control, adjustment of mA and/or kV according to patient size. COMPARISON: [facility], CR, XR CHEST 1V, 05/05/2021, 8:51. [facility], CT, CT ABDOMEN PELVIS W CON, 05/05/2021, 10:11. [facility], CR, XR CHEST 1V, 05/10/2021, 9:17. FINDINGS: Image quality: Excellent. Lungs and pleura: There is a 1.6 x 1.4 x 1.2 centimeter oval-shaped density which measures 260 Hounsfield units located within the horizontal fissure which corresponds with the mass seen on prior chest x-ray. Densities extending from this masslike opacity to the posterolateral pleura where there is nodular pleural thickening, the largest being a hyperdense pleural nodule measuring 2.5 x 1.2 x 1.6 centimeters. Left basilar atelectasis and small left pleural effusion are present. Central and peripheral airways are patent and normal in caliber. Mediastinum: Heart size is normal. No pericardial effusion. No mediastinal adenopathy by size criteria. Thoracic aorta and central pulmonary arteries are normal in size. Esophagus is normal in caliber. No hiatal hernia. Bones and chest wall: No suspicious bony lesions. No vertebral body compression fractures. No axillary or supraclavicular adenopathy by size criteria. Thyroid gland is normal . Abdomen: Visualized upper abdominal solid organs and bowel loops appear normal in the absence of contrast. IMPRESSION: Hyperdense 1.6 x 1.4 x 1.2 centimeter mass along the fissure with extension to the right posterolateral pleura where there is pleural nodularity with a pleural nodule measuring 2.5 x 1.2 x 1.6 centimeters. This is larger compared to a recent abdominal CT in which it was visualized and only measured 2.5 x 0.5 centimeters. Given this change only over 6 days in the hyperdensity it is likely that there is been hemorrhage into these lesions. Recommend continued follow-up until resolution or if there is any interval growth biopsy could be considered.. Underlying neoplasm cannot be excluded. Dictated by: Gabriel Espino M.D. on 05/11/2021 at 9:25 Approved by: Gabriel Espino M.D. on 05/11/2021 at 9:37
--- NOTE | 2021-05-11 10:02 | PM.PN.1 ---
Subjective Subjective Date Patient Seen: 05/11/21 Time Patient Seen: 10:03 Interval history: Patient states that she feels much better this am. Multiple BM's, flatus Exam Vital Signs (past 8 hours): - 05/11/21 04:26 05/11/21 08:00 Temperature 98.5 F 98.7 F Pulse Rate 87 101 H Respiratory Rate 18 19 Blood Pressure 179/97 H 164/91 H Pulse Oximetry 96 96 Oxygen Delivery Method Room Air Oxygen Flow Rate 0 Narrative Exam Narrative: Healthy appearing lady in NAD Resp Effort & Inspection: normal respiratory effort Auscultation: clear to auscultation bilaterally Cardio Rate: tachycardic Rhythm: regular rhythm GI Inspection: distended (mildly) Palpation: soft Skin General: dry skin and warm Wounds: wounds noted Other: Dressing is C+D Neuro General: patient alert and patient awake Extrem General: normal to inspection Psych Speech and Movement: speech and movement normal Affect: normal affect Attitude: cooperative Thought Process: normal Thought Content: normal Judgment: judgment good Objective Labs Result Diagrams: 05/11/21 04:23 05/11/21 04:23 Labs: Laboratory Results - last 24 hr 05/11/21 05/11/21 04:23 04:23 WBC 12.8 H RBC 3.36 L Hgb 9.4 L Hct 29.1 L MCV 86.5 MCH 28.0 MCHC 32.4 RDW 13.7 Plt Count 230 Sodium 142 Potassium 3.3 L Chloride 108 H Carbon Dioxide 31 BUN 33 H Creatinine 1.30 H Estimated GFR 42.7 L BUN/Creatinine Ratio 25.4 H Glucose 97 Calcium 8.3 L PFSH Medical History (Updated 05/07/21 @ 10:47 by Angy Mayen MD) Recurrent pneumothorax Small bowel obstruction Surgical History (Updated 05/05/21 @ 16:36 by Wojciech Norwood DO) History of appendectomy History of lung surgery Family History (Updated 05/05/21 @ 16:36 by Wojciech Norwood DO) Father Hypertension Mother Hypertension Social History household members: spouse Smoking Status: Never smoker alcohol intake: current (rare 0-1 drinks per week) substance use type: does not use Assessment & Plan Assessment & Plan narrative: POD# 4 Laparotomy for sbo, sb resection and hysterectomy From a surgical standpoint she is progressing well. Bowel function is returning and will start a diet. HTN and HR spiked this morning - CT did not show a PE, Medicine is addressing. Time Spent With Patient Time with patient: less than 30 minutes Critical Care time: I spent a total of [] minutes of critical care time on this patient's care today; this time is exclusive of procedural time. Quality VTE Deep Vein Thrombosis/Pulmonary Embolism Present on Admission: No
[2021-05-11] MEDS: GABAPENTIN 300 MG CAPSULE PO (10:08)
[2021-05-11] MEDS: METOPROLOL IR 25 MG TABLET PO ×2 (10:08→21:14)
[2021-05-11] MEDS: PANTOPRAZOLE 40 MG VIAL IV (10:09)
[2021-05-11] MEDS: ACETAMINOPHEN 325 MG TABLET 650 MG PO ×3 (13:22→22:35)
[2021-05-11] MEDS: AMLODIPINE 5 MG TABLET PO (13:25)
--- NOTE | 2021-05-11 13:50 | PC.NURSE ---
Addendum entered by Manuela Warren R.N. 05/11/21 14:44: Daily amlodipine started. Addendum entered by Manuela Warren R.N. 05/11/21 14:41: Pt reports still feeling off mentation is appropriate, answers orientation questions correctly. Slight delay to clear speech. R ear, scop patch removed. Will hold 1500 Gabapentin. MD aware of No IV access. PO intake is good. May advance to full liquid at dinner. Apap given for pain. Original Note: Am shift Pt is SBA to BR, IV access lost this shift, multiple attempts to restart unsuccessful, by multiple staff members. Pt is taking PO intake of clear liquids well no nausea or emesis. BT+ with BM this shiftx3. Loose. Pain well controlled at present.Scheduled APAP and gabapentin. Using call light for needs. RA, lungs clear, Midline incision CDI. Pt likely to dc home in am.
--- NOTE | 2021-05-11 14:01 | P.PN_ITS ---
Subjective Subjective Date Patient Seen: 05/11/21 Time Patient Seen: 08:00 Interval history: Yesterday she was coughing but this has resolved. She has no shortness of breath. No fever. She began having bowel movements this morning. Exam Vital Signs (past 8 hours): - 05/11/21 08:00 05/11/21 11:54 05/11/21 12:00 Temperature 98.7 F 98.3 F Pulse Rate 101 H 90 Respiratory Rate 19 20 Blood Pressure 164/91 H 173/96 H Pulse Oximetry 96 96 96 Oxygen Delivery Method Room Air Oxygen Flow Rate 0 Narrative Exam Narrative: GENERAL APPEARANCE: no acute distress. LUNGS: clear bilaterally with no wheezes, rhonchi, or rales. CARDIOVASCULAR: regular rate and rhythm with no murmurs ABDOMEN: Soft, non-distended, non-tender. midline surgical dressing is c/d/i. JOSEP drain with sanguinous output, minimal EXTREMITIES: No cyanosis, clubbing or edema. NEUROLOGIC: Alert and oriented x 3 Objective Labs Result Diagrams: 05/11/21 04:23 05/11/21 04:23 Labs: Laboratory Results - last 24 hr 05/11/21 05/11/21 04:23 04:23 WBC 12.8 H RBC 3.36 L Hgb 9.4 L Hct 29.1 L MCV 86.5 MCH 28.0 MCHC 32.4 RDW 13.7 Plt Count 230 Sodium 142 Potassium 3.3 L Chloride 108 H Carbon Dioxide 31 BUN 33 H Creatinine 1.30 H Estimated GFR 42.7 L BUN/Creatinine Ratio 25.4 H Glucose 97 Calcium 8.3 L [facility] Medical History (Updated 05/07/21 @ 10:47 by Angy Mayen MD) Recurrent pneumothorax Small bowel obstruction Surgical History (Updated 05/05/21 @ 16:36 by Wojciech Norwood DO) History of appendectomy History of lung surgery Family History (Updated 05/05/21 @ 16:36 by Wojciech Norwood DO) Father Hypertension Mother Hypertension Social History household members: spouse Smoking Status: Never smoker alcohol intake: current (rare 0-1 drinks per week) substance use type: does not use Assessment & Plan Assessment & Plan narrative: 56-year-old female admitted with small-bowel obstruction, likely secondary to adhesive disease, who was noted to have very elevated blood pressures in the emergency room.? Medicine was asked for consultation. She is now POD#1 s/p NYLA, small bowel resection, and hysterectomy. Developed APRVIN likely due to hypovolemia 1. Hypertension, acute -suspect set at least some component secondary to pain. started on amlodipine with improvement initially. -diet advanced today, restart amlodipine 2. Small bowel obstruction, acute, present on admission ?- likely secondary to adhesions. general surgery following and managing 3. PARVIN - suspect secondary to dehydration in setting of SBO and ischemic bowel. Creatinine 3.69 now improved to 1.3. - aggressive IV fluids, catheter placement for strict monitoring. - would avoid diuretics in the future if possible unless hypoxic or grossly volume overloaded. 4. hypokalemia, acute, present on admission ?- likely secondary to GI losses from SBO. repleted with IV. 5. Elevated glucose ?- 184 on admission labs, ordered A1c which was 5.0% 6. Abnormal chest imaging - patient has history of pleurodesis after previous spontaneous pneumothorax -CT scan shows hypderdensity, discussed with radiology and says that appear too hyperdense to be mass, no evidence of consolidation -possibly consistent with history of pleurodesis -patient with no respiratory symptoms currently -recommend outpatient follow up to see if change -will send d/c summary to Dr. Sullivan her nuclear medicine specialist at [facility] Code: Full as discussed with the patient, surrogate is her fam COVID: negative. Medicine will continue to follow this patient. I have utilized all available immediate resources to obtain, update, or review the patient's current medications. Time Spent With Patient Critical Care time: I spent a total of [] minutes of critical care time on this patient's care today; this time is exclusive of procedural time. Quality VTE Deep Vein Thrombosis/Pulmonary Embolism Present on Admission: No
[2021-05-11] MEDS: POTASSIUM CHLORIDE 20 MEQ TAB 40 MEQ PO (16:32)
--- NOTE | 2021-05-11 20:18 | PM.PNPO.1 ---
Subjective Subjective Date Patient Seen: 05/11/21 Time Patient Seen: 20:18 Interval history: Patient is a 56-year-old 1 para 0 postop day # 4 status post ex lap, partial small-bowel resection, and supracervical hysterectomy with bilateral salpingectomy She has tolerated clear liquids. She is passing gas. She has had 3 small bowel movements today. She is ambulating without assistance. Patient has strong desire to go home. Exam Vital Signs (past 8 hours): - 05/11/21 16:00 05/11/21 17:00 05/11/21 19:39 Temperature 99.6 F 99.5 F Pulse Rate 88 84 Respiratory Rate 18 16 Blood Pressure 162/94 H 171/96 H Pulse Oximetry 97 95 99 Oxygen Delivery Method Room Air Oxygen Flow Rate 0 Narrative Exam Narrative: Generally: Patient is sitting up in bed, no acute distress Lungs: Clear to auscultation bilaterally Cardiovascular: Regular rate and rhythm. Slight tachycardia Abdomen: Soft. Good bowel sounds. Incision: Small patch of dried blood towards the inferior edge Extremities: Negative Homans Objective Labs Result Diagrams: 05/11/21 04:23 05/11/21 04:23 Labs: Laboratory Results - last 24 hr 05/11/21 05/11/21 04:23 04:23 WBC 12.8 H RBC 3.36 L Hgb 9.4 L Hct 29.1 L MCV 86.5 MCH 28.0 MCHC 32.4 RDW 13.7 Plt Count 230 Sodium 142 Potassium 3.3 L Chloride 108 H Carbon Dioxide 31 BUN 33 H Creatinine 1.30 H Estimated GFR 42.7 L BUN/Creatinine Ratio 25.4 H Glucose 97 Calcium 8.3 L [facility] Medical History (Updated 05/07/21 @ 10:47 by Angy Mayen MD) Recurrent pneumothorax Small bowel obstruction Surgical History (Updated 05/05/21 @ 16:36 by Wojciech Norwood DO) History of appendectomy History of lung surgery Family History (Updated 05/05/21 @ 16:36 by Wojciech Norwood DO) Father Hypertension Mother Hypertension Social History household members: spouse Smoking Status: Never smoker alcohol intake: current (rare 0-1 drinks per week) substance use type: does not use Assessment & Plan Post-op Postoperative Procedures: Procedures Operation Date: 05/07/21 11:45 Actual Procedure Side Surgeon p Open small bowel resection Not Applicable Angy Mayen MD s Open Supracervical Hysterectomy and bilateral salpingectomy Not Applicable Kayley Champion MD Postoperative day: 4 Postoperative status: doing well Postoperative plan: advance diet Time Spent With Patient Time with patient: 15-24 minutes Quality VTE Deep Vein Thrombosis/Pulmonary Embolism Present on Admission: No
--- NOTE | 2021-05-12 01:19 | PC.NURSE ---
patient and requesting to speak w/ surgeon about d/c home. call to surgeon to request visit to patient/. Dr Champion here to see patient later on during the shift. anticipate d/c home tomorrow. call light w/in reach. w/ instructions to continue to call for help prior togetting OOB.
[2021-05-12 03:58] VITALS: BP 162/98; PULSE 83; RESP 18; TEMP 37; O2SAT 97
[2021-05-12] MEDS: ACETAMINOPHEN 325 MG TABLET 650 MG PO ×2 (04:28→12:47)
[2021-05-12 07:45] VITALS: TEMP 36.9
[2021-05-12 09:15] VITALS: BP 157/92; PULSE 81
[2021-05-12] MEDS: METOPROLOL IR 25 MG TABLET PO (09:24)
[2021-05-12] MEDS: AMLODIPINE 5 MG TABLET PO (09:24)
[2021-05-12] MEDS: GABAPENTIN 300 MG CAPSULE PO ×2 (09:24→16:05)
[2021-05-12 11:45] VITALS: BP 154/91; PULSE 117; RESP 18; TEMP 36.6; O2SAT 98
--- NOTE | 2021-05-12 11:56 | P.PN_ITS ---
Subjective Subjective Date Patient Seen: 05/12/21 Time Patient Seen: 08:00 Interval history: Today she says her coughing has resolved. She has some incisional abdominal pain. She is eating. She wants to go home. Exam Vital Signs (past 8 hours): - 05/12/21 03:58 05/12/21 07:45 05/12/21 09:15 Temperature 98.6 F 98.4 F Pulse Rate 83 81 Respiratory Rate 18 Blood Pressure 162/98 H 157/92 H Pulse Oximetry 97 Oxygen Delivery Method Room Air Oxygen Flow Rate 0 Narrative Exam Narrative: :?GENERAL APPEARANCE: no acute distress. LUNGS: clear bilaterally with no wheezes, rhonchi, or rales. CARDIOVASCULAR: regular rate and rhythm with no murmurs ABDOMEN: Soft, non-distended, non-tender. midline surgical dressing is c/d/i. JOSEP drain with sanguinous output, minimal EXTREMITIES: No cyanosis, clubbing or edema. NEUROLOGIC: Alert and oriented x 3 Objective Labs Result Diagrams: 05/11/21 04:23 05/11/21 04:23 [facility] Medical History (Updated 05/07/21 @ 10:47 by Angy Mayen MD) Recurrent pneumothorax Small bowel obstruction Surgical History (Updated 05/05/21 @ 16:36 by Wojciech Norwood DO) History of appendectomy History of lung surgery Family History (Updated 05/05/21 @ 16:36 by Wojciech Norwood DO) Father Hypertension Mother Hypertension Social History household members: spouse Smoking Status: Never smoker alcohol intake: current (rare 0-1 drinks per week) substance use type: does not use Assessment & Plan Assessment & Plan narrative: 56-year-old female admitted with small-bowel obstruction, likely secondary to adhesive disease, who was noted to have very elevated blood pressures in the emergency room.? Medicine was asked for consultation. She is now POD#1 s/p NYLA, small bowel resection, and hysterectomy. Developed PARVIN likely due to hypovolemia 1. Hypertension, acute -suspect set at least some component secondary to pain. started on amlodipine with improvement -diet advanced -can dc on amlodipine 5mg daily 2. Small bowel obstruction, acute, present on admission ?- likely secondary to adhesions. general surgery following and managing 3. PARVIN, resolved - suspect secondary to dehydration in setting of SBO and ischemic bowel. Creatinine 3.69 now improved to 1.3. - would avoid diuretics in the future if possible unless hypoxic or grossly volume overloaded. 4. hypokalemia, acute, present on admission, resolved ?- likely secondary to GI losses from SBO. repleted with IV. 5. Elevated glucose ?- 184 on admission labs, ordered A1c which was 5.0% 6. Abnormal chest imaging - patient has history of pleurodesis after previous spontaneous pneumothorax -CT scan shows hypderdensity, discussed with radiology and says that appear too hyperdense to be mass, no evidence of consolidation -possibly consistent with history of pleurodesis -patient with no respiratory symptoms currently -can follow up as outpatient to ensure resolution -send d/c summary to Dr. Sullivan her production hand at [facility] Code: Full as discussed with the patient, surrogate is her fam COVID: negative. At this time her blood pressure is improving, her creatinine is improving. Her chest imaging needs outpatient follow up and she has no respiratory symptoms. She is stable from these issue and medicine will sign off. Please reconsult if any further questions. I have utilized all available immediate resources to obtain, update, or review the patient's current medications. Time Spent With Patient Critical Care time: I spent a total of [] minutes of critical care time on this patient's care today; this time is exclusive of procedural time. Quality VTE Deep Vein Thrombosis/Pulmonary Embolism Present on Admission: No
--- NOTE | 2021-05-12 14:18 | P.DS_ITS ---
History of Present Illness History of Present Illness Date Patient Seen: 05/12/21 Time Patient Seen: 14:18 Date of Onset of Symptoms: 05/06/21 Chief complaint: severe upper abdominal cramps, nausea Narrative: Admitted with PSBO Discharge Providers Provider Date of admission: 05/05/21 15:01 Discharge Date: 05/12/21 Consults: 05/07/21 16:12 Consult to Respiratory Therapy Evaluate & Treat Comment: post op bowel resection with acute ATN Physician Instructions: Evaluate and treat Dr. Champion Discharge provider: José Manuel Tirado MD Summary Hospital Course Discharge Diagnosis: SBO with ischemic small bowel segment and multinodular Uterus. Hospital Course: Admitted with sbo. Underwent laparotomy with small bowel adhesiolysis and resection as well as hys terectomy. Post operatively did well, bowel function returned in a couple days. She did have new issue with BP and HR for which medicine was consulted. Today she is AF VS-WNL Jennifer Diet, ambulating in halls. D/C Home in stable condition Status at Discharge Cognitive/behavioral status at discharge: oriented Functional status at discharge: independent ambulation Overall status at discharge: patient is back to baseline Time Spent with Patient Time spent: Less than 30 minutes Exam Vital Signs (past 8 hours): - 05/12/21 07:45 05/12/21 09:15 05/12/21 11:45 Temperature 98.4 F 97.9 F Pulse Rate 81 117 H Respiratory Rate 18 Blood Pressure 157/92 H 154/91 H Pulse Oximetry 98 Oxygen Delivery Method Room Air Oxygen Flow Rate 0 Const General: cooperative, healthy appearing and comfortable Orientation: alert and awake HENLA Head: normal to inspection Eyes General: appearance normal, both eyes and all related structures Pupils: PERRL EOM: EOM intact bilaterally Neck Neck: normal visual inspection and full ROM Resp Effort & Inspection: normal respiratory effort Auscultation: clear to auscultation bilaterally Cardio Rate: regular rate Rhythm: regular rhythm GI Palpation: soft Skin General: dry skin and warm Wounds: wounds noted Other: Dressing C+D Neuro General: patient alert and patient awake Cognition: normal cognition Speech: speech normal Extrem General: normal to inspection and no pedal edema Psych Speech and Movement: speech and movement normal Affect: normal affect Attitude: cooperative Thought Process: normal Thought Content: normal Judgment: judgment good Objective Labs Result Diagrams: 05/11/21 04:23 05/11/21 04:23 [facility] Medical History (Updated 05/07/21 @ 10:47 by Angy Mayen MD) Recurrent pneumothorax Small bowel obstruction Surgical History (Updated 05/05/21 @ 16:36 by Wojciech Norwood DO) History of appendectomy History of lung surgery Family History (Updated 05/05/21 @ 16:36 by Wojciech Norwood DO) Father Hypertension Mother Hypertension Social History household members: spouse Smoking Status: Never smoker alcohol intake: current (rare 0-1 drinks per week) substance use type: does not use Discharge Assessment & Plan Assessment and Plan Assessment: S/P laparotomy for SBO and ischemic small bowel segment and hysterectomy. Plan of Treatment: She did well following surgery with return of bowel function in a couple days. She jennifer PO's., +BM and Flatus Follow up w Dr. Mayen, Branch Store Manager, and medicine Discharge Plan Discharge Plan Patient Disposition: Home Provider Discharge Comment: F/U w Dr. Mayen 1 week Discharge orders & Medications Prescriptions: New metoprolol tartrate 25 mg Tablet 25 mg PO BID Qty: 20 RF: 0 hydrocodone-acetaminophen 5-325 mg tablet 1 tab PO Q4-6H PRN (Reason: pain) Qty: 14 RF: 0 Follow up/Referrals: Angy Mayen MD [Physician] - 1 Week Diet/Activity/Treatments Diet: Diet as Tolerated Activity: As Jennifer Skin/Wound/Dressing Care Report to your healthcare provider any signs of infection, such as:: chills, fever, increased pain, unusual drainage and unusual redness Dressing: May remove dressing at home Visit Report/Discharge Packet Stand Alone Forms: Surgery Discharge Quality VTE Deep Vein Thrombosis/Pulmonary Embolism Present on Admission: No
[2021-05-12] MEDS: OXYCODONE 5 MG/5 ML ORAL SOLUTION 10 MG PO (16:46)
--- NOTE | 2021-05-12 17:33 | PC.NURSE ---
Pt is discharged as per dayshift report. Quoc VALDEZ, Marry, provides pt with discharge teaching in written and verbal format. Scripts provided to pt as per Dr. Tirado who is present in house. Pt c/o 11/26 abdominal pain and requests narcotic for transport to home. Administered 5 mg oxycodone as per emar. This dose is less than prescribed, however, pt is leaving this functional tester typewriters's monitoring and this med has not been given yet today. Pt's fiance arrives and meds clarified as per fiance request. Pt left hospital in stable condition with all personal effects accounted for. Pt left hospital with this functional tester typewriters escorting via wheelchair in stable condition with fiance as tow motor driver.
== END 2021-05-12 17:03 | disposition home or self-care (01) | DRG 329 ==
LOC: ED 14:49 → AC 15:03 → ICU 05-08 09:28
PROVIDERS: Internal Medicine; Obstetrics & Gynecology; Admitting Provider Surgery; Emergency Provider Emergency Medicine; Referring Provider Emergency Medicine; Visit Provider Surgery
PROC: 0DBB0ZZ Excision of Ileum, Open Approach (ICD-10-PCS; CPT 49000; principal; 2021-05-07 11:45)
PROC: 0UT90ZZ Resection of Uterus, Open Approach (ICD-10-PCS; CPT 58150; 2021-05-07 11:45)
DX: K56.50 Intestinal adhesions [bands], unspecified as to partial versus complete obstruction (principal); K55.021 Focal (segmental) acute infarction of small intestine; N17.9 Acute kidney failure, unspecified; D62 Acute posthemorrhagic anemia; K59.09 Other constipation; D25.9 Leiomyoma of uterus, unspecified; E87.6 Hypokalemia; E86.0 Dehydration; I10 Essential (primary) hypertension; R00.0 Tachycardia, unspecified; R73.9 Hyperglycemia, unspecified; R93.89 Abnormal findings on diagnostic imaging of other specified body structures; R05 Cough; Z20.822 Contact with and (suspected) exposure to COVID-19
CPT/HCPCS: 36415; 71045; 71250; 74018; 74177; 76856; 80048; 80053; 81003; 81015; 81025; 82550; 82553; 82962; 83036; 83690; 83735; 84443; 84484; 85007; 85025; 85027; 86304; 87635; 87797; 93005; 93010; 94760; 96374; 96375; 96376; 99285; C9803; C9113; J0330; J0360; J0690; J1100; J1170; J1885; J1940; J2250; J2270; J2405; J2704; J3010

== ENCOUNTER → 2024-02-15 16:00 | Outpatient (CLI) | payer OTHER, SELFPAY ==
[2021-05-05 15:41] VITALS: BMI 19.5
== END ==
PROVIDERS: Visit Provider Student in an Organized Health Care Education/Training Program
DX: N89.8 Other specified noninflammatory disorders of vagina (principal)
CPT/HCPCS: 87086; 87210

== ENCOUNTER 2025-01-04 12:53 | Day surgery (SDC) | payer OTHER, SELFPAY ==
[2021-05-05 15:41] VITALS: BMI 19.5
--- NOTE | 2025-01-04 14:05 | PM.OP.COLON ---
Operative Date/Time/Diagnoses Date of procedure: 01/04/25 Time of procedure: 15:25 Pre-op diagnosis: See indication and findings Post-op diagnosis: same Procedure & Clinicians Study performed: Colonoscopy Same procedure as scheduled: Yes Indications: First screening colonoscopy Surgeon: Pollo Bowden Procedure Notes Procedure in detail: After informed consent was obtained the patient was placed in left lateral decubitus position. The video colonoscope was introduced the rectum and slowly advanced cecum. Preparation was good. On slow withdrawal mucosa was carefully examined. The scope was removed. The patient tolerated procedure well. Blood loss none Complications none Sedation mac Findings 1. Normal colonoscopy to cecum Patient should have follow-up colonoscopy in 10 years
[2025-01-04] MEDS: LACTATED RINGERS 1,000 ML 42 ML IV (14:07)
--- NOTE | 2025-01-04 14:07 | PM.HP.IH.1 ---
History of Present Illness History of Present Illness Date Patient Seen: 01/04/25 Chief complaint: [facility] Medical History (Updated 12/01/24 @ 12:49 by Charu Kerr MD) Small bowel obstruction Recurrent pneumothorax Surgical History (Updated 12/01/24 @ 12:17 by Charu Kerr MD) History of hysterectomy History of exploratory laparotomy History of lung surgery History of appendectomy Family History Father Hypertension Mother Hypertension Social History household members: spouse alcohol intake: current (rare 0-1 drinks per week) substance use type: does not use Meds Home Medications and Allergies Home Medications Medication Instructions Recorded Confirmed Type norethindrone acetate 1 mg-ethinyl 1 tab PO DAILY #63 tabs 02/17/24 12/23/24 Rx estradiol 20 mcg tablet magnesium stearate ea miscellaneous 12/01/24 12/23/24 History multivitamin 1 tab PO DAILY 12/01/24 12/23/24 History sodium,potassium,mag sulfates 17.5 See Rx Instructions PO .COMPLEX 12/11/24 12/23/24 Rx gram-3.13 gram-1.6 gram oral soln #354 mL (Suprep Bowel Prep Kit) Allergies Allergy/AdvReac Type Severity Reaction Status Date / Time No Known Drug Allergies Allergy Verified 01/04/25 14:06 Exam Narrative Exam Narrative: Oropharynx free of lesions Chest clear to auscultation percussion Cardiac exam reveals no S3 or murmur Assessment & Plan Assessment & Plan narrative: For screening colonoscopy. Risks, benefits, alternatives have been explained. Time-Based Coding :: [TOTAL MINUTES] spent with patient and on the chart (including review of chart, obtaining history, exam, reviewing outside data, placing orders, documenting exam and treatment plan, and counseling patient) on [DATE]. PROFEE Clinical Research Monitor Document charge(s): No
[2025-01-04 14:12] VITALS: BP 161/97; PULSE 63; RESP 16; TEMP 36.7; O2SAT 100
[2025-01-04 15:20] VITALS: BP 134/78; PULSE 75; RESP 15; TEMP 36.4; O2SAT 98
[2025-01-04 15:25] VITALS: BP 144/84; PULSE 75; RESP 17; TEMP 36.6; O2SAT 99
[2025-01-04 15:30] VITALS: BP 150/82; PULSE 78; RESP 21; O2SAT 98
== END 2025-01-04 16:00 | disposition home or self-care (01) ==
PROVIDERS: PCP Family Medicine; Referring Provider Internal Medicine Gastroenterology; Visit Provider Internal Medicine Gastroenterology
PROC: 0DJD8ZZ Inspection of Lower Intestinal Tract, Via Natural or Artificial Opening Endoscopic (ICD-10-PCS; CPT 45378; principal; 2025-01-04 14:00)
DX: Z12.11 Encounter for screening for malignant neoplasm of colon (principal)
CPT/HCPCS: 45378; J2405; J2704

== ENCOUNTER → 2025-02-15 09:57 | Outpatient (CLI) | payer BC, SELFPAY ==
[2021-05-05 15:41] VITALS: BMI 19.5
[2025-02-15 10:46] LABS: Add Manual Diff / Slide Review NO; Basophils Absolute Auto 0 /uL (0-100); Basophils Percent Auto 0.7 % (0-2); Eosinophils Absolute Auto 0 /uL (0-450); Eosinophils Percent Auto 0.5 % (2-4); Hematocrit 41.2 % (36-46); Hemoglobin 13.5 g/dL (12.0-16.0); Lymphocytes Absolute Auto 1100 /uL (1100-4500); Lymphocytes Percent Auto 24.8 % (25-40); Mean Corpuscular HGB Conc 32.9 % (30-36); Mean Corpuscular Hemoglobin 28.6 PG (26-34); Monocytes Absolute Auto 200 /uL (0-900); Monocytes Percent Auto 4.2 % (3-14); Neutrophils Absolute Auto 3200 /uL (1500-7000); Neutrophils Percent Auto 69.8 % (50-75); Platelet Count 264 X10^3/uL (150-400); Red Blood Cell Count 4.73 X10^6/uL (4.0-5.2); Red Cell Distribution Width 13.8 % (11.6-14.8); White Blood Cell Count 4.6 X10^3/uL (4.5-11.0)
[2025-02-15 11:08] LABS: Alanine Aminotransferase 17 IU/L (<35); Albumin 4.3 g/dL (3.5-5.0); Albumin Globulin Ratio 1.4 (1.0-2.8); Alkaline Phosphatase 69 U/L (38-126); Aspartate Aminotransferase 31 IU/L (14-36); BUN Creatinine Ratio 14.8 (6-22); Bilirubin Total 0.6 mg/dL (0.2-1.3); Blood Urea Nitrogen 18 mg/dL (7-17); Calcium 9.4 mg/dL (8.4-10.2); Carbon Dioxide 28 mmol/L (22-32); Chloride 104 mmol/L (98-107); Cholesterol 257 mg/dL (140-199); Estimated Glomerular Filt Rate 52 mL/min (>60); Glucose 88 mg/dL (70-99); HEMOLYSIS < 15 (0-50); Potassium 3.9 mmol/L (3.4-5.1); Sodium 139 mmol/L (137-145); Total Protein 7.3 g/dL (6.3-8.2); Triglycerides 127 mg/dL (35-150)
[2025-02-15 11:20] LABS: HDL Cholesterol 122 mg/dL (40-60); LDL Cholesterol Calculated 110 mg/dL (<100)
== END ==
PROVIDERS: PCP Family Medicine; Referring Provider Family Medicine; Visit Provider Family Medicine
DX: Z13.6 Encounter for screening for cardiovascular disorders (principal); I10 Essential (primary) hypertension
CPT/HCPCS: 36415; 80053; 80061; 85025

== ENCOUNTER 2025-06-15 14:42 | Observation (INO) | payer BC, SELFPAY ==
[2021-05-05 15:41] VITALS: BMI 19.5
[2025-06-15] VITALS (11 sets, daily range): BP systolic 119–206; BP diastolic 86–110; PULSE 64–71; RESP 16–24; TEMP 36.4–36.6; O2SAT 96–100; BMI 20.9
--- NOTE | 2025-06-15 15:02 | DI.CT.S_ITS ---
PROCEDURE: CT HEAD/BRAIN WO CON INDICATIONS: TIA symptoms at 1130, lasted 15 minutes TECHNIQUE: Noncontrast 4.5 mm thick angled axial sections acquired from the foramen magnum to the vertex, with coronal and sagittal reformats. For radiation dose reduction, the following was used: automated exposure control, adjustment of mA and/or kV according to patient size. COMPARISON: None. FINDINGS: Image quality: Diagnostic CSF spaces: Basal cisterns are patent. Lateral ventricles are symmetric. Volume: Vascular calcifications. Periventricular white matter disease is commonly seen with chronic microangiopathy. Volume loss is present. These findings are [id number] Brain: No intracranial hemorrhage. Rogers-white differentiation is grossly maintained. Craniofacial structures: No significant paranasal sinus opacity. IMPRESSION: No acute intracranial abnormality. If there is high concern for infarction, consider MRI. Dictated by: Deejay Ragland M.D. on 06/15/2025 at 15:28 Approved by: Deejay Ragland M.D. on 06/15/2025 at 15:29
--- NOTE | 2025-06-15 15:03 | DI.RAD.S_ITS ---
PROCEDURE: XR CHEST 1V INDICATIONS: Possible stroke TECHNIQUE: One view of the chest was acquired. COMPARISON: [facility], CR, XR CHEST 1V, 05/10/2021, 9:17. [facility], CR, XR CHEST 1V, 05/07/2021, 16:26. FINDINGS AND IMPRESSION: Low lung volumes limiting evaluation. Mild mid and lower lung opacities which may be infectious/inflammatory. There is a nodular region near the right hemidiaphragm, possibly the same finding from prior imaging. Consider nonurgent chest CT surveillance for these findings. Heart size is at the upper limit of normal. Degenerative osseous changes. Dictated by: Deejay Ragland M.D. on 06/15/2025 at 16:08 Approved by: Deejay Ragland M.D. on 06/15/2025 at 16:10
--- NOTE | 2025-06-15 15:09 | ED.NEUROSD ---
HPI - Neuro Symptoms/Deficit General Chief Complaint: Neuro Symptoms/Deficit Stated Complaint: uncoordinated, speech diff, worried about stroke Time Seen by Provider: 06/15/25 15:08 Source: patient Mode of arrival: Ambulatory History of Present Illness HPI Narrative: 60-year-old female patient with a history of hypertension, chronic kidney disease and sleep disturbance who complains of neuro symptoms starting at 11:30 a.m. today which included left hand numbness and ?going ,? feeling off balance and feeling like her speech did not sound right. This lasted 15 minutes and is now resolved. There were no other persons who witnessed the symptoms. Denies headache, fever or chills. She was supposed to start blood pressure medications 1 week ago but has not started them yet. On Anticoagulants: No Related Data Home Medications ?Medication ?Instructions ?Recorded ?Confirmed magnesium stearate 1 ea miscellaneous QAM 12/01/24 06/15/25 Previous Rx's ?Medication ?Instructions ?Recorded norethindrone acetate 1 mg-ethinyl 1 tab PO DAILY #63 tabs 01/07/25 estradiol 20 mcg tablet losartan 25 mg tablet 25 mg PO DAILY #60 tabs 06/08/25 Allergies Allergy/AdvReac Type Severity Reaction Status Date / Time No Known Drug Allergies Allergy Verified 06/08/25 13:37 Review of Systems Review of Systems ROS Unobtainable: All systems reviewed & are unremarkable except as noted in HPI and below Neurologic Neurologic: Reports as per HPI Hematologic/Lymphatic On Anticoagulants: No Patient History Medical History (Updated 06/15/25 @ 18:29 by Pamela Prieto MD) CKD stage 3a, GFR 45-59 ml/min Hypertension Acute renal injury due to hypovolemia Partial small bowel obstruction Pelvic mass Small bowel obstruction Recurrent pneumothorax Surgical History (Updated 12/01/24 @ 12:17 by Charu Kerr MD) History of hysterectomy History of exploratory laparotomy History of lung surgery History of appendectomy Family History (Updated 06/15/25 @ 18:29 by Pamela Prieto MD) Father Hypertension Mother Hypertension Sister Hypertension Social History household members: spouse Smoking Status: Never smoker alcohol intake: current substance use type: does not use Smoking Status: Never smoker Exam Narrative Exam Narrative: General: Alert and conversant. No distress. Appears well nourished and well hydrated Craniofacial: No evidence of trauma. Nontender and no swelling. Eyes: PERRLA EOMI conjunctiva clear HEENT: Tragus, pinnae nontender. Tympanic membranes normal appearance. Oropharynx clear with no swelling, exudate or asymmetry of the pharynx. Nares clear. No sinus tenderness Neck: No tenderness or adenopathy. No meningismus. No JVD Lungs: Clear to auscultation with good air movement. No wheezing, rales or rhonchi. No respiratory distress Cardiac: Regular rate and rhythm with no appreciable murmur or gallop Abdomen: Soft, nontender with no distention or masses. Normal bowel sounds. No rebound or guarding Musculoskeletal: Exam of the extremities, axial spine and ribcage reveals no deformity, bony tenderness or swelling. Range of motion intact Neuro: Alert and oriented. Cranial nerves, motor, sensory and cerebellar all grossly intact. No focal deficit Skin: Warm and normal color. No rashes Psychological: Normal affect and interaction. No evidence of delusion or psychosis. Normal mood. Initial Vital Signs Initial Vital Signs: Vital Signs Temperature 97.6 F 06/15/25 14:46 Pulse Rate 66 06/15/25 14:46 Respiratory Rate 18 06/15/25 14:46 Blood Pressure 187/98 H 06/15/25 14:46 Pulse Oximetry 100 06/15/25 14:46 Oxygen Delivery Method Room Air 06/15/25 14:46 Course Course Course Narrative: 16:10 16:25 I discussed the patient's care with Dr. Prieto, hospitalist who agrees to admit her for TIA with a full stroke workup. Decision to Admit Date: 06/15/25 Decision to Admit time: 16:25 Orders Ordered: ED Orders 06/15/25 15:02 CT head/brain wo con Stat 06/15/25 15:03 XR chest 1V Stat EKG-12 Lead Stat 06/15/25 15:09 Complete Blood Count AUTO DIFF Stat Comprehensive Metabolic Panel Stat PTT Partial Thromboplastin Keith Stat Prothrombin Time INR Stat Troponin & CK Cardiac Panel Stat 06/15/25 17:26 Urine Drug Screen, Rapid Stat Aspirin (Aspirin Ec 81 Mg Tablet) 81 mg PO DAILY [place] Atorvastatin Calcium (Atorvastatin 20 Mg Tablet) 40 mg PO BEDTIME [place] Last Admin: 06/15/25 20:50 Dose: 40 mg Documented By: POOJA Clopidogrel Bisulfate (Clopidogrel 75 Mg Tablet) 75 mg PO DAILY REPLACED BY [facility] Metoprolol Tartrate (Metoprolol Ir 25 Mg Tablet) 25 mg PO Q6HR REPLACED BY [facility] Naloxone HCl (Naloxone 0.4 Mg/Ml Vial) 0.2 mg IV Q2MIN PRN PRN Reason: Opiate Reversal Ondansetron HCl (Ondansetron 4 Mg/2 Ml Inj) 4 mg IV NOW PRN PRN Reason: Nausea And Vomiting Ondansetron HCl (Ondansetron 4 Mg Odt) 4 mg PO NOW PRN PRN Reason: Nausea And Vomiting Ondansetron HCl (Ondansetron 4 Mg/2 Ml Inj) 4 mg IV Q8HR PRN PRN Reason: Nausea And Vomiting Discontinued Medications Aspirin (Aspirin Ec 81 Mg Tablet) 81 mg PO DAILY REPLACED BY [facility] Aspirin (Aspirin Ec 325 Mg Tablet) 325 mg PO NOW ONE Stop: 06/15/25 16:39 Last Admin: 06/15/25 18:51 Dose: 325 mg Documented By: OCTAVIA Clopidogrel Bisulfate (Clopidogrel 75 Mg Tablet) 75 mg PO DAILY REPLACED BY [facility] Clopidogrel Bisulfate (Clopidogrel 75 Mg Tablet) 300 mg PO NOW ONE Stop: 06/15/25 16:39 Last Admin: 06/15/25 18:51 Dose: 300 mg Documented By: OCTAVIA Vital Signs Vital signs: Vital Signs - 8 hr 06/15/25 16:00 06/15/25 16:00 06/15/25 16:03 Pulse Rate 66 69 Respiratory Rate 24 20 Blood Pressure 167/89 H Pulse Oximetry 100 100 06/15/25 16:03 Pulse Rate Respiratory Rate Blood Pressure 176/93 H Pulse Oximetry MDM - Neuro Symptoms/Deficit Lab Data Attestation: I reviewed the patient's lab results. Lab results narrative: CBC, CMP and coagulation studies essentially unremarkable. Creatinine is 1.15 which is improved from previous studies. 06/15/25 15:09 06/15/25 15:09 Labs: Lab Results 06/15/25 Range/Units 15:09 WBC 4.2 L (4.5-11.0) X10^3/uL RBC 4.78 (4.0-5.2) X10^6/uL Hgb 13.4 (12.0-16.0) g/dL Hct 40.7 (36-46) % MCV 85.2 (80-100) fL MCH 28.1 (26-34) PG MCHC 33.0 (30-36) % RDW 13.9 (11.6-14.8) % Plt Count 268 (150-400) X10^3/uL Neut % (Auto) 67.2 (50-75) % Lymph % (Auto) 24.8 L (25-40) % [place] % (Auto) 6.1 (3-14) % Eos % (Auto) 0.4 L (2-4) % Baso % (Auto) 1.5 (0-2) % Neut # (Auto) 2800 (6223-1939) /uL Lymph # (Auto) 1000 L (1696-9304) /uL [place] # (Auto) 300 (0-900) /uL Eos # (Auto) 0 (0-450) /uL Baso # (Auto) 100 (0-100) /uL PT 10.1 (9.4-12.5) SECONDS INR 0.9 (0.9-1.3) APTT 29 (25.1-36.5) SECONDS Sodium 137 (137-145) mmol/L Potassium 3.4 (3.4-5.1) mmol/L Chloride 102 (98-107) mmol/L Carbon Dioxide 28 (22-32) mmol/L BUN 20 H (7-17) mg/dL Creatinine 1.15 H (0.52-1.04) mg/dL Estimated GFR 55 L (>60) mL/min BUN/Creatinine Ratio 17.4 (6-22) Glucose 84 (70-99) mg/dL Hemoglobin A1c 5.4 (4.0-6.0) % Calcium 9.1 (8.4-10.2) mg/dL Total Bilirubin 0.2 (0.2-1.3) mg/dL AST 32 (14-36) IU/L ALT 19 (<35) IU/L Alkaline Phosphatase 66 (38-126) U/L Total Creatine Kinase 254 H (30-135) U/L Troponin I < 0.012 (0.01-0.034) ng/mL Total Protein 7.8 (6.3-8.2) g/dL Albumin 4.5 (3.5-5.0) g/dL Globulin 3.3 (1.7-4.1) g/dL Albumin/Globulin Ratio 1.4 (1.0-2.8) Triglycerides 102 (35-150) mg/dL Cholesterol 245 H (140-199) mg/dL LDL Cholesterol, Calc 101 H (<100) mg/dL HDL Cholesterol 124 H (40-60) mg/dL Imaging Data Chest x-ray: My Impression: Unremarkable. No acute disease. No infiltrate, pleural effusion CT scan - head: Attestation: I personally reviewed and interpreted this imaging study as follows: My Impression: Unremarkable. No bleed, evidence of stroke or other intracranial abnormality. Radiologist's Impression: Impression: No acute intracranial abnormality. ECG Data Attestation: I personally reviewed and interpreted this ECG as follows: (Sinus rhythm with first-degree AV block. Rate 61. No ischemic changes.) MDM Narrative Medical decision making narrative: Patient has symptoms consistent with TIA with currently no symptoms or signs on physical exam. Currently no neurological deficit. Her care was discussed with the neuro stroke team at [facility]. Plan is for admission and stroke workup including MRI, echo and dual platelet therapy for 21 days. Patient was discussed with the hospitalist who agrees and has admitted the patient. Currently asymptomatic. She also has apparent uncontrolled hypertension. She had been prescribed antihypertensives but was trying to see if she had only ?white coat hypertension. ? And was trying to monitor at home but has not done any measurements. Stroke Core Measures Exclusion Criteria TPA in CVA: Symptom Onset >3 or 4.5 Hours (4 hours to 4-1/2 hours ago. Also her symptoms have resolved) Discharge Plan Departure Patient Disposition: Admitted As Inpatient Clinical Impression: Transient ischemic attack (TIA) Admit Date/Time: 06/15/25 16:27 Admit Provider: Pamela Prieto
[2025-06-15 15:17] LABS: Add Manual Diff / Slide Review NO; Hematocrit 40.7 % (36-46); Hemoglobin 13.4 g/dL (12.0-16.0); Lymphocytes Absolute Auto 1000 /uL (1100-4500); Mean Corpuscular HGB Conc 33.0 % (30-36); Mean Corpuscular Hemoglobin 28.1 PG (26-34); Mean Corpuscular Volume 85.2 fL (80-100); Platelet Count 268 X10^3/uL (150-400)
--- NOTE | 2025-06-15 15:23 | EKG_ITS ---
[address] [address] [place] [address] Test Date: 2025-06-15 Pat Name: Kalie Chavis Department: [facility] Room: Gender: Female Architectural Designer: : 1965 Requested By: Order Number: [id number] Reading MD: Bc Jewell MD Measurements Intervals [place] Rate: 61 P: 57 IN: 212 QRS: -6 QRSD: 78 T: 32 QT: 416 QTc: 418 Interpretive Statements Sinus rhythm with 1st degree AV block Electronically Signed On 06-27-2025 8:58:14 PST by Bc Jewell MD
[2025-06-15 15:24] LABS: INR 0.9 (0.9-1.3); Prothrombin Time 10.1 SECONDS (9.4-12.5)
[2025-06-15 15:27] LABS: PTT Partial Thromboplastin Tim 29 SECONDS (25.1-36.5)
[2025-06-15 15:29] LABS: Alanine Aminotransferase 19 IU/L (<35); Albumin 4.5 g/dL (3.5-5.0); Albumin Globulin Ratio 1.4 (1.0-2.8); Alkaline Phosphatase 66 U/L (38-126); Blood Urea Nitrogen 20 mg/dL (7-17); Calcium 9.1 mg/dL (8.4-10.2); Carbon Dioxide 28 mmol/L (22-32); Chloride 102 mmol/L (98-107); Creatine Kinase 254 U/L (30-135); Estimated Glomerular Filt Rate 55 mL/min (>60); Globulin 3.3 g/dL (1.7-4.1); Glucose 84 mg/dL (70-99); HEMOLYSIS < 15 (0-50); Potassium 3.4 mmol/L (3.4-5.1); Sodium 137 mmol/L (137-145); Total Protein 7.8 g/dL (6.3-8.2)
[2025-06-15 15:41] LABS: Troponin I < 0.012 ng/mL (0.01-0.034)
--- NOTE | 2025-06-15 16:35 | DI.ECHO.S_ITS ---
Version: 1 Study ID: [id number] [id number] [place] [address] Name: LETHA BEAULIEU Study Date: 06/16/2025, 10: 53 AM : 1965 BP: 141 / 81 mmHg Gender: Female Height: 68 in Age: 60 Years Weight: 138 lb BSA: 1.75 mA??? Ordering: MAKAYLA JAUREGUI Referring: MAKAYLA JAUREGUI Clinician: Erick Brooke Reason For Study: TIA History: Summary Statements Normal sinus rhythm. Normal LV size and wall thickness; EF is 60-65%. Normal chamber sizes. No PFO based on bubble study. No valve abnormalities. No prior study available for comparison. Procedure: A two-dimensional transthoracic echocardiogram with color flow and Doppler was performed. A saline contrast injection was performed to assess for cardiac shunting. The study quality was technically good. There is no prior echocardiogram noted for this patient. The patient was in normal sinus rhythm during the exam. Left Ventricle: Diastolic parameters suggest probable normal left ventricular diastolic function and normal filling pressures. The ejection fraction is estimated to be 60-65%. The left ventricle is normal in size. Left ventricular wall thickness is mildly increased. There is no ventricular septal defect visualized. There are no focal wall motion abnormalities. Right Ventricle: The right ventricle is normal in size and function. Atria: Injection of contrast documented no interatrial shunt. The left atrial size is normal. Right atrial size is normal. Mitral Valve: There is trace mitral regurgitation. The mitral valve leaflets appear normal. There is no evidence of stenosis, fluttering, or prolapse. Aortic Valve: No aortic regurgitation is present. The aortic valve is trileaflet. The aortic valve opens well. Tricuspid Valve: There is a trace or physiologic amount of tricuspid regurgitation. The tricuspid valve leaflets are thin and pliable. Pulmonic Valve: There is trace pulmonic regurgitation. The pulmonic valve leaflets are thin and pliable; valve motion is normal. Great Vessels: The dimensions of the ascending aorta are normal. The aortic root is normal size. The IVC is of normal diameter and collapses greater than 50% with a sniff. This suggests a low right atrial pressure of 3 mm Hg. The pulmonary artery is normal size. Pericardium/ Pleura: There is no pericardial effusion. There is no pleural effusion. 2D and M-Mode Measurements and Calculations LVIDd: 4.4 cm AoV Openin.87 cm LVIDs: 2.7 cm LVOT diam: 1.86 cm IVSd: 1.09 cm Ao root diam: 3.4 cm LVPWd: 1.13 cm asc Aorta Diam: 2.9 cm LV alvarez. diameter/BSA (cm/m^2): 2.50 LV sys. diameter/BSA (cm/m^2): 1.53 EPSS: 0.43 cm RVD1 (basal): 3.1 cm RVD2 (mid): 2.38 cm TAPSE: 2.11 cm LA A4 area: 16.0 sampler first??? IVC diam: 1.43 cm LA A2 area: 17.9 sampler first??? RA area: 12.3 sampler first??? LA length (vol): 5.1 cm RA long axis: 5.4 cm LA vol: 47.8 ml RA vol: 24.0 ml LA vol index: 27.4 ml/mA??? RA : 13.7 ml/mA??? Doppler Measurements and Calculations Ao V2 max: 120.6 cm/sec LVOT Max Deyvi: 106.1 cm/sec Ao V2 mean: 81.1 cm/sec LV V1 max P.5 mmHg Ao V2 VTI: 24.1 cm LV V1 VTI: 22.1 cm Ao max P.8 mmHg SV(LVOT): 59.9 ml Ao mean P.9 mmHg RAUL(I,D): 2.49 sampler first??? RAUL(V,D): 2.38 sampler first??? RAUL indexed to BSA (cm^2/m^2): 1.43 sev ratio: 0.92 MV E max deyvi: 75.0 cm/sec MV dec time: 0.18 sec MV A max deyvi: 65.8 cm/sec MV E/A: 1.14 Med Peak E' Devyi: 7.7 cm/sec Lat Peak E' Deyvi: 9.5 cm/sec E/e' average: 8.8 TR max deyvi: 211.8 cm/sec PA mean P.22 mmHg TR max P.9 mmHg PA V2 max: 97.8 cm/sec Albina Schultz M.D. Electronically signed by: Albina Schultz M.D. 06/16/2025, 12: 28 PM
--- NOTE | 2025-06-15 16:37 | PM.HP.1 ---
History of Present Illness History of Present Illness Date Patient Seen: 06/15/25 Time Patient Seen: 18:21 Chief complaint: uncoordinated, speech diff, worried about stroke Narrative: This is a 60-year-old female with a history of hypertension, CKD 3 and previous small bowel obstruction who presents with a short neurological episode consistent with TIA. Late this morning, while she lives alone, she noticed that her right upper extremity was discoordinated and her walking, using the right leg was uncoordinated. Her speech was garbled and she was unable to use her smart phone. The symptoms lasted 15 minutes and then resolved. By the time she came to the emergency department, shortly thereafter, her exam was normal. The stroke neurology team was consulted and recommended a full TIA/stroke workup. She had recently been started on losartan 25 mg a day for hypertension but says she did not take it because she ?filled the wrong prescription ?. She has no family history of stroke but both her sister and her mother have hypertension. Brain CT is normal. Brain CTA shows: Severe periventricular deep white matter hypodensities bilaterally, much greater than expected for patient age. She will undergo echocardiogram and MRI. Her blood pressure is quite high at 202/105 so she will be started on metoprolol. Assessment plan: Transient ischemic attack, present on admission. Active. -untreated hypertension and evident hyperlipidemia with strong family history of hypertension are her risk factors. -brain CTA shows much greater than expected for age deep white matter hypodensities. -brain MRI, echocardiogram and telemetry monitoring are initiated. -stroke acquisition consultant team contacted in the ED and made recommendations. -Plavix 75 mg daily, aspirin 81 mg daily and atorvastatin 40 mg daily are initiated. -metoprolol for hypertension, consider losartan. Hypertension, present on admission. Active. -she was recently started on losartan but never actually took it. Her blood pressure is as high as 202 over 105 in the ED. -start metoprolol acutely and will likely need losartan/HCTZ added. CKD 3 -likely caused by untreated hypertension, creatinine 1.15 with GFR 57. SCD for DVT prevention is backup decision maker. [facility] Medical History (Updated 06/15/25 @ 18:29 by Pamela Prieto MD) CKD stage 3a, GFR 45-59 ml/min Hypertension Acute renal injury due to hypovolemia Partial small bowel obstruction Pelvic mass Small bowel obstruction Recurrent pneumothorax Surgical History (Updated 12/01/24 @ 12:17 by Charu Kerr MD) History of hysterectomy History of exploratory laparotomy History of lung surgery History of appendectomy Family History (Updated 06/15/25 @ 18:29 by Pamela Prieto MD) Father Hypertension Mother Hypertension Sister Hypertension Social History household members: spouse Smoking Status: Never smoker alcohol intake: current substance use type: does not use Meds Home Medications and Allergies Home Medications ?Medication ?Instructions ?Recorded ?Confirmed ?Type magnesium stearate ea miscellaneous 12/01/24 06/08/25 History norethindrone acetate 1 mg-ethinyl 1 tab PO DAILY #63 tabs 01/07/25 06/08/25 Rx estradiol 20 mcg tablet losartan 25 mg tablet 25 mg PO DAILY #60 tabs 06/08/25 06/08/25 Rx Allergies Allergy/AdvReac Type Severity Reaction Status Date / Time No Known Drug Allergies Allergy Verified 06/08/25 13:37 Review of Systems Review of Systems Narrative: Positive for difficulty speaking, discoordination and high blood pressure. Negative for fevers, chills, sweats, coughing, chest pain, abdominal pain, nausea, vomiting, dysuria, bleeding, rashes. Exam Vital Signs (past 8 hours): - 06/15/25 14:46 06/15/25 14:57 06/15/25 15:32 Temperature 97.6 F Pulse Rate 66 Respiratory Rate 18 Blood Pressure 187/98 H 184/92 H 184/94 H Pulse Oximetry 100 Oxygen Delivery Method Room Air 06/15/25 15:32 Temperature Pulse Rate 71 Respiratory Rate Blood Pressure Pulse Oximetry 100 Oxygen Delivery Method Room Air Oxygen Delivery Method Room Air Narrative Exam Narrative: Alert and oriented x3. No apparent distress. She struggles to remember names of medications, details of medical history, somewhat more than I would expect for her age. She says this is not unusual however. Pupils are equally round and reactive to light and accommodation. Extraocular muscles are intact. Sclerae are pink and nonicteric. Throat looks normal. No lymph nodes are felt head, neck, supraclavicular area. JVD is less than 6 cm. No carotid bruits are heard. Heart is regular rate and rhythm without murmur. Lungs are clear to auscultation bilaterally. Abdomen is soft, bowel sounds positive, nontender, no organomegaly. Extremities have no ankle edema. Skin has no rash or jaundice. Motor function is 5/5 in all extremities. Reflexes are symmetric. Babinski's are downgoing bilaterally. Qbhskv-yc-sbun pointing is normal. Cranial nerves 2-12 test intact. There is no tremor. Memory of details is less than expected for age. Objective Labs 06/15/25 15:09 06/15/25 15:09 Labs: Laboratory Results - last 24 hr 06/15/25 15:09 WBC 4.2 L RBC 4.78 Hgb 13.4 Hct 40.7 MCV 85.2 MCH 28.1 MCHC 33.0 RDW 13.9 Plt Count 268 Neut % (Auto) 67.2 Lymph % (Auto) 24.8 L [place] % (Auto) 6.1 Eos % (Auto) 0.4 L Baso % (Auto) 1.5 Neut # (Auto) 2800 Lymph # (Auto) 1000 L [place] # (Auto) 300 Eos # (Auto) 0 Baso # (Auto) 100 PT 10.1 INR 0.9 APTT 29 Sodium 137 Potassium 3.4 Chloride 102 Carbon Dioxide 28 BUN 20 H Creatinine 1.15 H Estimated GFR 55 L BUN/Creatinine Ratio 17.4 Glucose 84 Calcium 9.1 Total Bilirubin 0.2 AST 32 ALT 19 Alkaline Phosphatase 66 Total Creatine Kinase 254 H Troponin I < 0.012 Total Protein 7.8 Albumin 4.5 Globulin 3.3 Albumin/Globulin Ratio 1.4 Assessment & Plan Time-Based Coding :: [TOTAL MINUTES] spent with patient and on the chart (including review of chart, obtaining history, exam, reviewing outside data, placing orders, documenting exam and treatment plan, and counseling patient) on [DATE].
--- NOTE | 2025-06-15 16:50 | DI.CT.S_ITS ---
PROCEDURE: CT ANGIO HEAD AND NECK INDICATIONS: TIA/CVA TECHNIQUE: After the administration of intravenous contrast, 1 mm thick sections acquired from the aortic arch through the [place] of [place]. 3-dimensional vtdtsyz-wwukydwcw-lspvwhivnn (MIP) and/or volume rendering reformats were acquired of the central intracranial vasculature and neck separately. For radiation dose reduction, the following was used: automated exposure control, adjustment of mA and/or kV according to patient size. COMPARISON: [facility], CT, CT HEAD/BRAIN WO CON, 06/15/2025, 15:19. FINDINGS: Image quality: Diagnostic. Cerebral CT Angiogram: Internal carotid arteries: No acute findings. Intracranial ICA are patent with no significant stenosis. No occlusion. No aneurysm. Anterior cerebral arteries: Unremarkable. No significant stenosis. No occlusion. No aneurysm. Middle cerebral arteries: Unremarkable. No significant stenosis. No occlusion. No aneurysm. Posterior cerebral arteries: Unremarkable. No significant stenosis. No occlusion. No aneurysm. Basilar artery: Unremarkable. No significant stenosis. No occlusion. No aneurysm. Vertebral arteries: Unremarkable as visualized. Dural venous sinuses: Unremarkable given phase of enhancement. Other: Severe periventricular deep white matter hypodensities bilaterally, most commonly related to small vessel ischemic change, much greater than expected for patient age. Neck CT Angiogram: Internal carotid arteries: Unremarkable. No significant stenosis. No dissection or occlusion. Common carotid arteries: Unremarkable. No significant stenosis. No dissection or occlusion. External carotid arteries: Unremarkable. No occlusion. Vertebral arteries: Unremarkable. No significant stenosis. No dissection or occlusion. Aortic Arch and Mediastinum: Partially visualized aortic arch unremarkable without evidence of aneurysm. Origins of the great vessels unremarkable. Other: Arterial phase soft tissues of the neck and chest are unremarkable. IMPRESSION: No significant intracranial arterial abnormality is seen. No significant abnormality is seen within the arteries of the neck. Severe periventricular deep white matter hypodensities bilaterally, much greater than expected for patient age. Comment: Consider brain MRI with and without contrast. Any quantitative measurements of stenosis were performed using NASCET criteria. Dictated by: Cleve Thorne M.D. on 06/15/2025 at 17:22 Approved by: Cleve Thorne M.D. on 06/15/2025 at 17:25
[2025-06-15 17:01] LABS: Cholesterol 245 mg/dL (140-199); Triglycerides 102 mg/dL (35-150)
[2025-06-15 17:03] LABS: Hemoglobin A1C% w Est Avg Glu 5.4 % (4.0-6.0)
[2025-06-15 17:10] LABS: HDL Cholesterol 124 mg/dL (40-60)
[2025-06-15 17:43] LABS: Ur Creatinine Normal (Normal); Ur Specific Gravity Normal (Normal); Urine MDMA Negative (Negative); Urine Methamphetamines Negative (Negative); Urine THC Negative (Negative); Urine Tricyclic Antidepressant Negative (Negative); Urine pH Normal (Normal)
[2025-06-15] MEDS: CLOPIDOGREL 75 MG TABLET 300 MG PO (18:51)
[2025-06-15] MEDS: ASPIRIN EC 325 MG TABLET PO (18:51)
--- NOTE | 2025-06-15 19:20 | PC.NURSE ---
Patient admitted for r/cva. NIH is a 0. Patient is alert and oriented x4, she does have high blood pressure of 190s/93. Dr Prieto is aware of this. Plavix 300mg and aspirin 325mg po given to patient. She denies any chest pain. Placed on tele. No drift in extremities, smile is symmetrical and no facial droop. She is resting in bed now.
[2025-06-15] MEDS: ATORVASTATIN 20 MG TABLET 40 MG PO (20:50)
[2025-06-16 00:15] VITALS: BP 165/96; PULSE 66; RESP 16; TEMP 36.6; O2SAT 97
[2025-06-16 04:26] VITALS: BP 153/87; PULSE 62; RESP 16; TEMP 36.1; O2SAT 97
[2025-06-16] MEDS: METOPROLOL IR 25 MG TABLET PO ×2 (05:05)
[2025-06-16 07:14] LABS: Blood Urea Nitrogen 17 mg/dL (7-17); Calcium 8.8 mg/dL (8.4-10.2); Carbon Dioxide 27 mmol/L (22-32); Chloride 102 mmol/L (98-107); Estimated Glomerular Filt Rate > 60 mL/min (>60); Glucose 90 mg/dL (70-99); HEMOLYSIS 16 (0-50); Potassium 3.2 mmol/L (3.4-5.1); Sodium 137 mmol/L (137-145)
[2025-06-16 07:45] VITALS: BP 134/69; PULSE 60; RESP 15; TEMP 37.1; O2SAT 98
--- NOTE | 2025-06-16 08:55 | OT.IP.EVAL ---
Current Diagnoses Transient cerebral ischemic attack, unspecified (06/15/25) Past Medical History (Last Updated 06/15/25 @ 18:29 by Pamela Prieto MD) Acute renal injury due to hypovolemia CKD stage 3a, GFR 45-59 ml/min Hypertension Partial small bowel obstruction Pelvic mass Recurrent pneumothorax Small bowel obstruction Surgical History (Last Updated 12/01/24 @ 12:17 by Charu Kerr MD) History of appendectomy History of exploratory laparotomy History of hysterectomy History of lung surgery Occupational Therapy Inpatient Evaluation/Re-Eval M1 PT/OT-IP Prior Functional Status Start: 06/16/25 12:44 Freq: NEEDED Status: Active Protocol: Document 06/16/25 14:41 [facility] (Rec: 06/16/25 14:57 [facility] Desktop) Medical Review Prior Functional Status Medical History Yes Reviewed Communication able to make needs known Mobility and Gait pt stated that she was independent with all mobilities and ambulation without AD Activities of Daily Completely independent with all needs for ADL,IADL, and Living and IADL's drives. Social History Household Members spouse Living Arrangements House Number of Floors ( Two Floors Floors) Number of Stairs To pt stays on main level of the house Enter/Railing? 2 steps to enter without rails Home Environment Standard Height Toilet,Walk in Shower,Built-In Shower Seat Home Equipment Hand Held Shower,Grab Bars In Shower Employment Status Retired M2 OT-IP Current Condition Start: 06/16/25 14:41 Freq: Status: Active Protocol: Document 06/16/25 14:41 [facility] (Rec: 06/16/25 14:57 [facility] Desktop) Occupational Therapy Current Condition Current Condition Evaluation Date 06/16/25 Treatment Diagnosis TIA Diagnosis Onset Date 06/15/25 M3 OT- IP Subjective and Pain Start: 06/16/25 14:41 Freq: Status: Active Protocol: Document 06/16/25 14:41 [facility] (Rec: 06/16/25 14:57 [facility] Desktop) OT- Subjective Occupational Therapy Visit Type Type Initial Evaluation Visit Start Time 08:55 Visit Stop Time 09:43 Occupational Therapy Visit Comments Patient Comments Pt agreed to get up to use the toilet and do grooming needs. Patient/Caregiver TO go home. Goals OT Pain Assessment Pain When Pain Assessed At Rest Pain Present Pain Present Denied Pain M4 OT- IP ADL's Start: 06/16/25 14:41 Freq: Status: Active Protocol: Document 06/16/25 14:41 [facility] (Rec: 06/16/25 14:57 [facility] Desktop) OT [id number]-[id number] General Evaluation Self-Feeding Ability Independent OT ADL-Grooming General Evaluation Grooming Ability Independent OT ADL-Oral Care General Eval Oral Care Ability Independent OT ADL-Dressing General Eval Upper Body Dressing Independent Ability Lower Body Dressing Standby Assistance Ability Comments OT Dressing Comments Pt states prior able to stand and bird/doff socks while holding onto surfaces. Today pt unable and had loss of balance and needing to sit down for dressing needs. OT ADL-Toileting General Evaluation Toileting Ability Independent OT ADL-Bathing Comments OT Bathing Comments Enoucouraged pt may be best to sit for showering needs. M5 OT- IP IADL's Start: 06/16/25 14:41 Freq: Status: Active Protocol: Document 06/16/25 14:41 [facility] (Rec: 06/16/25 14:57 [facility] Desktop) OT-Instrumental Activities of Daily Living Home Safety Awareness Ability to Problem Able to Problem Solve Solve Emergency Situations Medication Management Medication Would be best to have her provide supervision Management Comments initially. Money Management Money Management Best to have supervision. Comments Meal Preparation Meal Preparation Best to have supervision or assist- decreased Comments proprioception and kinesthesia with right hand. Warper Creeler Warper Creeler Best to have supervision and assist as needed. Comments Driving Driving Concerns Identified Regarding Safety M6 OT- IP Functional Cognition Start: 06/16/25 14:41 Freq: Status: Active Protocol: Document 06/16/25 14:41 [facility] (Rec: 06/16/25 14:57 [facility] Desktop) Cognitive Factors Limiting Selfcare Function Cognitive Ability Level of Alertness Alert Patient Orientation Name,Age,Birthday,Month,Date,Year,Day of Week,Place, Situation Attention Span Capable of Focused Attention,Capable of Sustained Ability Attention Ability to Follow Able to Follow Multi-Step Commands Commands Executive Function Unable to Remember Details Ability Cognitive Comments Cognitive Assessment Pt able to follow commands for ADL and mobility needs. Comments Pt scored 121sec on [place] Making Part B which implies significant deficits for visual attention, speed of processing, task switching, mental flexibility and executive functioning. Pt able to answer all home safety questions accurately. OT- Vision and Hearing OT- Vision Assessment Vision History Visual Attentiveness WFL Occular Pursuits WFL Visual Convergence WFL Visual Bland WFL M7 OT- IP Mobility and Balance Start: 06/16/25 14:41 Freq: Status: Active Protocol: Document 06/16/25 14:41 [facility] (Rec: 06/16/25 14:57 [facility] Desktop) OT- Bed Mobility Assessment Supine to Sit Supine to Sit Assist Standby Assistance Sit to Supine Sit to Supine Assist Standby Assistance OT-Transfer Assessment Sit to and From Stand Sit to and from Standby Assistance Stand Transfers Transfer Ability Standby Assistance Technique Transfer Destination Bed,Chair,Toilet Transfer Technique Stand Step Pivot Devices Transfer Assistive Gait Belt Devices Comments Mobility Comments Pt able to move in the room with SBA , on one instance slight loss of balance and leans to the left but able to recover on her own. Pt able to stand with eyes closed for 10 seconds and turn in 360 degrees without any issues. Pt admits that at times if she moves her head to fast that she is susceptable to getting dizzy. OT- Balance Assessment Sitting Balance and Reactions Static Sitting Normal Balance Ability Dynamic Sitting Normal Balance Ability Standing Balance and Reactions Static Standing Good Balance Ability Dynamic Standing Fair Balance Ability M8 OT- IP Objective Assessments Start: 06/16/25 14:41 Freq: Status: Active Protocol: Document 06/16/25 14:41 [facility] (Rec: 06/16/25 14:57 [facility] Desktop) OT Gross Range of Motion Upper Extremity Range of Motion Assessment Within Functional Limits OT Strength Upper Extremity Strength Assessment Within Functional Limits Comments Strength Comments Right shoulder 4/5 per pt due to tennis elbow from moving carpet at home, otherwise 5/5 for all BUE. OT- Coordination Assessment Upper Extremity Finger to Nose Test Right UE Impaired Comments Coordination Slightly off for right index finger. Comments Right hand 50th percentage 21 sec and left hand 29 sec at 10th percentage. Pt feels that her handwriting is just about the same but slightly off. M9 OT- IP Assessment and Plan Start: 06/16/25 14:41 Freq: Status: Active Protocol: Document 06/16/25 14:41 [facility] (Rec: 06/16/25 14:57 [facility] Desktop) OT Summary Assessment and Plan Potential Rehabilitation Excellent Potential Analytic Complexity Low at Evaluation Summary OT Impairments Strength,Balance,Functional Cognition,Functional Mobility,Dressing,Bathing,Shower Transfers,Activity Tolerance Progress Towards Progressing Toward Goals Goals Assessment Summary Pt MOD complexity and main barriers are decreased dynamic balance, slight decreased FMS left hand and decreased proprioception and kinesthesia for right hand . Pt will benefit from at least supervision from her , not drive at this time and may benefit from possible outpt PT for dynamic balance needs. Goals Dressing Goal Independent Bathing Goal Independent Shower Transfer Goal Independent Days to Meet Goals 2 Treatment Plan OT Treatment Plan ADL Training,Functional Cognition Training,Functional Mobility,Patient/Family Education,Discharge Planning Discharge Recommendations OT Discharge Home with Assistance Recommendations Transportation Needs Private Vehicle at Discharge
[2025-06-16] MEDS: CLOPIDOGREL 75 MG TABLET PO (09:18)
[2025-06-16] MEDS: LOSARTAN 25 MG TABLET PO (09:18)
[2025-06-16] MEDS: ASPIRIN EC 81 MG TABLET PO (09:18)
--- NOTE | 2025-06-16 11:25 | PT.IIE ---
Current Diagnoses Transient cerebral ischemic attack, unspecified (06/15/25) Surgical History (Last Updated 12/01/24 @ 12:17 by Charu Kerr MD) History of appendectomy History of exploratory laparotomy History of hysterectomy History of lung surgery Medical History (Last Updated 06/15/25 @ 18:29 by Pamela Prieto MD) Acute renal injury due to hypovolemia CKD stage 3a, GFR 45-59 ml/min Hypertension Partial small bowel obstruction Pelvic mass Recurrent pneumothorax Small bowel obstruction Physical Therapy Inpatient Evaluation/Re-Eval M1 PT/OT-IP Prior Functional Status Start: 06/16/25 12:44 Freq: NEEDED Status: Active Protocol: Document 06/16/25 11:25 [facility] (Rec: 06/16/25 12:59 [facility] [id number]) Medical Review Prior Functional Status Medical History Yes Reviewed Communication able to make needs known Mobility and Gait pt stated that she was independent with all mobilities and ambulation without AD Social History Household Members spouse Living Arrangements House Number of Floors ( Two Floors Floors) Number of Stairs To pt stays on main level of the house Enter/Railing? 2 steps to enter without rails Home Environment Standard Height Toilet,Walk in Shower,Built-In Shower Seat Home Equipment Hand Held Shower,Grab Bars In Shower Employment Status Retired M2 PT-IP Current Condition Start: 06/16/25 12:44 Freq: NEEDED Status: Active Protocol: Document 06/16/25 11:25 [facility] (Rec: 06/16/25 12:59 [facility] [id number]) Physical Therapy Current Condition Current Condition Evaluation Date 06/16/25 Treatment Diagnosis TIA; difficulty in walking Onset Date 06/15/25 M3 PT-IP Subjective Start: 06/16/25 12:44 Freq: NEEDED Status: Active Protocol: Document 06/16/25 11:25 [facility] (Rec: 06/16/25 12:59 [facility] [id number]) Subjective Physical Therapy Visit Type Type Initial Evaluation Visit Start Time 11:25 Visit Stop Time 12:00 Number of MUSIC PRODUCER Visits 0 Physical Therapy Visit Comments Patient Comments agreeable to do PT Therapy Pain Assessment Pain Present Pain Present Denied Pain M4 PT-IP Mobility and Gait Start: 06/16/25 12:44 Freq: NEEDED Status: Active Protocol: Document 06/16/25 11:25 [facility] (Rec: 06/16/25 12:59 AB [id number]) PT-Bed Mobility Assessment Supine to Sit Supine to Sit Independent PT-Transfer Assessment Sit to and From Stand Sit to and from Standby Assistance,1 Person Assistance,Use of Upper Stand Extremities Equipment Transfer Assistive None,Gait Belt Device Orthotic/Prosthetic No Devices or Brace: Transfers Transfer Destination Chair Transfer Technique ambulated Transfer Ability Level of Assist Standby Assistance,1 Person Assistance,Use of Upper Extremities Comments Mobility Comments pt in bed and agreeable to do PT. obtained PLOF and home set up. BP: 145/89 . completed supine to sit mod I. able to sit on EOB SBA. sit to stand SBA and ambulated in room without AD initial CGA and cues. pt presents with unsteady gait. cued pt for safety. pt sat on chair and instructed on steady gait and safety. sit to stand from chair SBA and ambulated in room without AD SBA with unsteady gait with slight LOB but able to rebalance CGA. pt completed up/down step stool without AD SBA x 3 sets . pt agreed to sit up on the chair. positioned pt on the chair. call light and table placed within reach. Gait Assessment Gait Gait Assistance Standby Assistance,Contact Guard Assist Required: Distance (Feet) 40 Able to Maintain Yes Weight Bearing Status During Gait Assistive Devices Assistive Device None,Gait Belt Orthotic/Prosthetic No Devices or Brace: Gait Deviations General Gait Pattern Ataxic Factors Limiting Gait Function Factors Limiting Poor Balance,Poor Safety Awareness Gait Function Stair Climbing Assessment Evaluation Level of Assist On Standby Assistance Stairs Devices Stair Climbing None Assistive Devices Technique/Endurance Stair Climbing Ascend and Descend Direction Stair Climbing Step to Step Technique Number of Steps 1 Climbed Query Text: Stair Climbing Set # 4 Repetitions (reps) PT-Balance Assessment Sitting Balance and Reactions Static Sitting Normal Balance Ability Dynamic Sitting Normal Balance Ability Standing Balance and Reactions Static Standing Good Balance Ability Dynamic Standing Fair Balance Ability Device Used without AD M5 PT-IP Objective Assessments Start: 06/16/25 12:44 Freq: NEEDED Status: Active Protocol: Document 06/16/25 11:25 [facility] (Rec: 06/16/25 12:59 AB [id number]) Orientation Orientation/Cognition Level of Alertness Alert Orientation Name,Place,Situation Language Function No Deficits Noted Ability Safety Awareness Understands Safety Issues Memory Description No Deficits Noted Gross Range of Motion Lower Extremity ROM Assessment Within Functional Limits Strength Lower Extremity Strength Assessment Within Functional Limits Muscle Tone Muscle Tone WNL Yes M6 PT-IP Treatment Start: 06/16/25 12:44 Freq: NEEDED Status: Active Protocol: Document 06/16/25 11:25 [facility] (Rec: 06/16/25 12:59 AB [id number]) Physical Therapy Treatment Education Education Provided Safety M7 PT-IP Assessment and Plan Start: 06/16/25 12:44 Freq: NEEDED Status: Active Protocol: Document 06/16/25 11:25 [facility] (Rec: 06/16/25 12:59 AB [id number]) PT Summary Assessment and Plan Potential Rehabilitation Good Potential Status of Condition Evolving at Evaluation Summary Impairments Pain,ROM,Strength,Balance,Coordination,Sensation,Tone, Cognition,Bed Mobility,Transfers,Gait,Activity Tolerance Assessment Summary pt is a 60 y/o F who is admitted for TIA. pt is mod I with bed mobility, SBA for transfers and SBA to CGA for ambulation without AD. pt plans to go home and spouse to assist her at home. pt presents with unsteady gait and cued for safety. will continue to assess mobility level and progress. Goals Transfer Goal Independent Gait Goal Independent Gait Distance 300 Other Goals up/down 2 steps without AD mod I Days to Meet Goals 3 Frequency of Treatment Frequency Of Once a Day Treatment Treatment Plan Physical Therapy Bed Mobility Training,Transfer Training,Gait Training, Treatment Plan Therapeutic Exercise,Balance Retraining,Discharge Planning,Hot or Cold Pack,Neuromuscular Re-ed, Coordination Retraining,Manual Therapy Recommendations To Nursing Amount of Assist 1 Person Assist Needed Discharge Recommendations PT Discharge Home with Assistance,Outpatient PT Recommendations Transportation Needs Private Vehicle at Discharge - PT assist 1
[2025-06-16 12:38] VITALS: BP 139/88; PULSE 68; RESP 17; TEMP 37.2; O2SAT 98
--- NOTE | 2025-06-16 14:45 | CM.DANOTE ---
Inital DCP Assessment Visit Note Reviewed EMR and team rounds for pt's medical status and updates. Pt lives independently with her spouse in their own home in [place]. She has been medically cleared for home d/c, her spouse will transport her home. Pt declines any d/c assistance or resource needs from at this time. Payor: Gabi Meza PCP: Shahzad Kinjalseth Pt is a 60 year-old F with a hx of HTN, CKD who presented to the ED with concerns of stroke-like symptoms. She reports her hand went numb, her balance was off, and her speech was abnormal lasting for approx. 15-minutes. Imaging in the ED was negative for abnormalities. ED provider consulted with Suzy cole [facility] neuro team, who suspected she had a TIA. Plan was made to admit to [facility] for pending brain MRI, ECHO. She has no lasting deficits and feels back to normal today. Pt will f/u with her PCP OP post-d/c to discuss hospitalization and discuss her HTN with new meds at that time. Discharge Planning/Care Management CM Discharge Assessment Start: 06/15/25 16:40 Freq: Status: Active Protocol: Document 06/16/25 14:42 DPL (Rec: 06/16/25 14:44 DPL [id number]) Discharge Planning Assessment Assigned Discharge BENJAMIN Liz Business Support Coordinator Insurance Other (enter in Comment) Insurance Comment Gabi Advance Directives? No Advance Directives No on File History Provided By Patient,Medical Record Has Patient been No admitted in last 30 days? Prior Living House Arrangements Household Members spouse Type of Drives own vehicle transporation used prior to admit Independent with ADL Yes 's Is patient alert and Yes oriented? Caregiver for No Another Comment N/A Comment No identified home d/c needs at this time. Barriers to No Discharge Discharge Plan Home Transportation Arrangement Referrals Initiated None needed Whiteboard Updated Yes in Patient Room with name and ext. # of [employer] Review Status In Process Please Provide Date 06/16/25 Initial DC Assessment Was Performed
--- NOTE | 2025-06-16 16:00 | PC.NURSE ---
Discharge: Pt feels ready to d/c to home. Dr. Schroeder here and gave pt results of tests and reviewed medications with her. She really doesn't want to take medication but he instructed her all her meds were important and she should take them as prescribed. Spouse present at time of teaching. Discharge packet given and reviewed. Pt verb understanding. MD asked if she could drive home, she drove herself here. She may drive. Her questions were answered. Pt d/c home with spouse, they are each taking their own cars.
--- NOTE | 2025-06-16 16:35 | DI.MRI.S_ITS ---
PROCEDURE: MR HEAD/BRAIN WO CON INDICATIONS: TIA TECHNIQUE: Non-contrast axial T1 spin echo, axial T2 fast spin echo, sagittal and axial FLAIR, coronal T2 fast spin echo, axial gradient echo, axial diffusion and ADC through the brain. COMPARISON: [facility], CT, CT HEAD/BRAIN WO CON, 06/15/2025, 15:19. FINDINGS: Image quality: Excellent. CSF spaces: Ventricles appear symmetric in size and shape. Basal cisterns are patent. No extra-axial fluid collections. Brain: No intracranial bleeds or mass effects. There is mild cerebral volume loss for age. Significant periventricular and deep white matter T2/FLAIR hyperintense signal, nonspecific but likely representing chronic small vessel ischemic changes. 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 Brainstem appears normal. Diffusion-weighted images show no acute infarct. No chronic ischemic insults. Normal intravascular flow voids are present. Skull and face: Calvarial bone marrow is normal in signal. Orbits are normal. Sinuses: Sinuses and mastoids are clear. IMPRESSION: No acute or subacute infarct. Significant periventricular and deep white matter T2/FLAIR hyperintense signal, this is nonspecific but likely representing chronic microvascular ischemic changes which are advanced for age. Other etiologies such as demyelination are felt to be less likely, recommend clinical correlation. Dictated by: Kalia Abernathy M.D. on 06/16/2025 at 11:12 Approved by: Kalia Abernathy M.D. on 06/16/2025 at 11:19
== END 2025-06-16 15:55 | disposition home or self-care (01) ==
LOC: ED 15:08 → AC 16:29
PROVIDERS: Admitting Provider Family Medicine; Emergency Provider Emergency Medicine; Family Provider Family Medicine; PCP Family Medicine; Referring Provider Emergency Medicine; Visit Provider Family Medicine
DX: G45.9 Transient cerebral ischemic attack, unspecified (principal); I12.9 Hypertensive chronic kidney disease with stage 1 through stage 4 chronic kidney disease, or unspecified chronic kidney disease; N18.31 Chronic kidney disease, stage 3a; E78.5 Hyperlipidemia, unspecified; Z82.49 Family history of ischemic heart disease and other diseases of the circulatory system; R29.700 NIHSS score 0
CPT/HCPCS: 36415; 70450; 70496; 70498; 70551; 71045; 80048; 80053; 80061; 80305; 81003; 82550; 83036; 84484; 85025; 85610; 85730; 93005; 93010; 93306; 97116; 97129; 97161; 97166; 97530; 97535; 99284; G0378; Q9967

== ENCOUNTER → 2025-08-10 11:56 | Outpatient (CLI) | payer BC, SELFPAY ==
[2025-06-15 22:23] VITALS: BMI 20.9
[2025-08-10 12:30] LABS: Add Manual Diff / Slide Review NO; Hematocrit 39.5 % (36-46); Hemoglobin 13.1 g/dL (12.0-16.0); Lymphocytes Absolute Auto 1200 /uL (1100-4500); Mean Corpuscular HGB Conc 33.1 % (30-36); Mean Corpuscular Hemoglobin 27.8 PG (26-34); Mean Corpuscular Volume 84.0 fL (80-100); Platelet Count 218 X10^3/uL (150-400)
[2025-08-10 12:58] LABS: Alanine Aminotransferase 35 IU/L (<35); Albumin 4.2 g/dL (3.5-5.0); Albumin Globulin Ratio 1.6 (1.0-2.8); Alkaline Phosphatase 83 U/L (38-126); Blood Urea Nitrogen 18 mg/dL (7-17); Calcium 9.4 mg/dL (8.4-10.2); Carbon Dioxide 31 mmol/L (22-32); Chloride 102 mmol/L (98-107); Estimated Glomerular Filt Rate 54 mL/min (>60); Globulin 2.6 g/dL (1.7-4.1); Glucose 104 mg/dL (70-99); HEMOLYSIS < 15 (0-50); Potassium 3.7 mmol/L (3.4-5.1); Sodium 139 mmol/L (137-145); Total Protein 6.8 g/dL (6.3-8.2)
== END ==
PROVIDERS: PCP Family Medicine; Referring Provider Family Medicine; Visit Provider Family Medicine
DX: E78.5 Hyperlipidemia, unspecified (principal); I12.9 Hypertensive chronic kidney disease with stage 1 through stage 4 chronic kidney disease, or unspecified chronic kidney disease; N18.31 Chronic kidney disease, stage 3a
CPT/HCPCS: 36415; 80053; 82043; 82570; 85025